=== PATIENT | female | born 1960 | race Caucasian/White ===

== ENCOUNTER 2020-10-25 16:44 | Observation (INO) | payer BC, OTHER ==
--- OUTSIDE RECORDS SUMMARY | 2020-10-25 16:46 | XMS REPORT | Continuity of Care Document ---
:1960 Author Organization [facility] t Address [address] [place] [address] Care Team Providers Name Role Phone Unavailable Unavailable Unavailable Problems This patient has no known problems. Allergies, Adverse Reactions, Alerts Allergy Allergy Status Severity Reaction(s) Onset Inactive Treating Comm ents Source Name Type Date Date Clinician codeine Adverse Active Info Not [facility] Reaction [facility] Medications Ordered Filled Start Stop Current Ordering Indication Dosage Frequency Signature Comments Components Source Medication Medication Date Date Medication? Clinician (SIG) Name Name Ozempic Ozempic Yes Jhonny inject one [facility] -1 mg [facility] l a [facility] Procedures This patient has no known procedures. Encounters Start End Encounter Admission Attending Care Care Encounter Source Date/Time Date/Time Type Type Clinicians Facility Department ID 2020-09-04 2020-09-04 Outpatient [facility] [id number] [facility] 2020-07-03 2020-07-03 Outpatient [facility] [id number] [facility] 2020-06-01 2020-06-01 Outpatient [facility] [id number] [facility] 2020-05-23 2020-05-23 Outpatient [facility] [id number] [facility]00 [facility] 2020-03-29 2020-03-29 [address] [facility] [id number] [facility] 20:18:00 20:18:00 [facility] Out[facility] Clinics 2020-03-22 2020-03-22 [facility] [id number] [facility] 14[facility]09:00 14:09:00 [place] [employer] [facility] Medicine Outpati ent Clinics 2020-03-02 2020-03-02 [facility] [id number] [address] 13:43:00 13:43:00 [place] [employer] [facility] Medicine l Medicine Outpati ent Clinics 2020-02-16 2020-02-16 [facility] [id number] 14:00:00 14:00:00 [place] [employer] [facility] [place] [facility] Medicine l Medicine Outpati ent Clinics 2020-02-04 2020-02-04 [facility] [id number] [address] 09:54:00 09:54:00 [place] [employer] [facility] [place] [facility] Medicine l Medicine Outpati ent Clinics 2020-01-21 2020-01-21 [facility] [id number] [address] 11:45:00 11:45:00 [place] [employer] [place] - [facility] Medicine l Medicine Outpati ent Clinics 2019-12-16 2019-12-16 [facility] [id number] 12[facility]00[facility]00 [facility] l Medicine Outpati ent Clinics 2019-12-10 2019-12-10 [facility] [id number] [facility] 09[facility]40[facility]00 [facility]40[facility] [address] [facility] Medicine Outpati ent Clinics 2019-12-09 2019-12-09 [facility] [id number] 08:39:00 08:39:00 [place] [employer] [facility] [place] [facility] Medicine l Medicine Outpati ent Clinics 2019-12-07 2019-12-07 [facility] [id number] 09:40:00 09:40:00 t [facility] [employer] [facility] Medicine l Medicine Outpati ent Clinics 2019-12-03 2019-12-03 [facility] [id number] 08:40:00 08:40:00 [place] [employer] [facility] Medicine l Medicine Outpati ent Clinics 2019-12-02 2019-12-02 [facility] [id number] [facility] 10:04:00 10:04:00 t [place] [employer] [facility] Medicine l Medicine Outpati ent Clinics 2019-12-02 2019-12-02 [facility] [id number] 10:02:00 10:02:00 t [facility] [employer] [facility] Medicine Outpat[facility] Clinics 2019-12-01 2019-12-01 [facility] [address] 14:00:00 14:00:00 t [facility] [employer] [facility] Medicine l Medicine Outpati ent Clinics 2019-12-01 2019-12-01 [facility] [id number] 10:15:00 10:15:00 [place] [employer] [facility] Medicine l Medicine Outpati ent Clinics 2019-11-24 2019-11-24 [facility] [id number] 11[facility]30:00 11:30:00 [place] [employer] [facility] Medicine l Medicine Outpati ent Clinics 2019-11-22 2019-11-22 [facility] [id number] 10:52:00 10:52:00 [place] [employer] [facility] Medicine l Medicine Outpati ent Clinics 2019-11-19 2019-11-19 [facility] [id number] 10:35:00 10:35:00 t [place] [employer] [facility] Medicine l Medicine Outpati ent Clinics 2019-11-19 2019-11-19 [facility] [id number] 10[facility]20:00 10:20:00 t [place] [employer] [facility] Medicine l Medicine Outpati ent Clinics 2019-11-18 2019-11-18 [facility] [id number] [facility] 15:52:00 15:52:00 [place] [employer] [place] [facility] - Drive [facility] Medicine Outpati ent Clinics 2019-11-16 2019-11-16 [facility] [id number] 16:00:00 16:00:00 [place] [employer] [place] [facility] - Drive [facility] Medicine Outpati ent Clinics 2019-08-17 2019-08-17 [facility] [id number] 16:15:00 16:15:00 [place] [employer] [facility] - Drive [facility] Medicine Outpati ent Clinics 2019-08-09 2019-08-09 [facility] [id number] [facility] 16:14:00 16:14:00 [place] [employer] [facility] - Drive [facility] Medicine Outpati ent Clinics 2019-05-12 2019-05-12 [facility] [id number] 16:45:00 16:45:00 [place] [employer] [facility] - Drive [facility] Medicine Outpati ent Clinics 2019-04-20 2019-04-20 [facility] [id number] [facility] 10:45:00 10:45:00 [place] [employer] [facility] - [facility] Medicine Outpati ent Clinics 2019-03-05 2019-03-05 [facility] [id number] 13:53:00 13:53:00 [place] [employer] [facility] - Drive [facility] Medicine Outpati ent Clinics 2019-01-05 2019-01-05 [facility] [id number] 16:14:00 16:14:00 [place] [employer] [facility] - Drive [facility] Medicine Outpati ent Clinics 2018-12-29 2018-12-29 [facility] [id number] 16:30:00 16:30:00 [place] [facility] [facility] - Drive [facility] Medicine Outpati ent Clinics Results This patient has no known results.
--- NOTE | 2020-10-25 17:48 | RAD REPORT ---
EXAM DESCRIPTION: CT - Head Brain Wo Cont - 10/25/2020 5:39 pm CLINICAL HISTORY: right sided facial droop Headache, drowsiness COMPARISON: No comparisons TECHNIQUE: All CT scans are performed using dose optimization technique as appropriate and may inclu de automated exposure control or mA/KV adjustment according to patient size. FINDINGS: No intracranial hemorrhage, hydrocephalus or extra-axial fluid collection.Small 9 mm left lacunar infarct is noted, age undetermined.No areas of brain edema or evidence of midline shift. The paranasal sinuses and mastoids are clear. The calvarium is intact. IMPRESSION: No acute intracranial abnormality. 9 mm lacunar infarct left basal ganglia favored to be subacute or chronic in timeframe.
[2020-10-25 18:24] LABS: Absolute Lymphocytes (CBC) 3.8 K/uL (0.7-4.9); Basophils % 0.8 % (0-1.3); MPV 8.6 fL (7.6-11.3); RBC Red Blood Cell Count 4.64 M/uL (3.86-4.86)
[2020-10-25 18:28] LABS: Protime INR 0.83
[2020-10-25] MEDS ORDERED: ASPIRIN 81 MG CHEWABLE TABLET ONE (18:34)
[2020-10-25 18:46] LABS: ALT/SGPT 37 U/L (12-78); AST/SGOT 13 U/L (15-37); Albumin 4.3 g/dL (3.4-5.0); Alkaline Phosphatase 75 U/L (45-117); BUN Blood Urea Nitrogen 22 mg/dL (7-18); Bicarbonate 28 mmol/L (21-32); Bilirubin Direct 0.1 mg/dL (0-0.2); Bilirubin Total 0.5 mg/dL (0.2-1.0); Glucose Level 164 mg/dL (74-106); NT PRO-BNP 33 pg/mL (<125); Potassium 4.2 mmol/L (3.5-5.1); Protein, Total 7.7 g/dL (6.4-8.2); Sodium Level 137 mmol/L (136-145); Troponin (Emerg Dept Use Only) < 0.02 ng/mL (0.0-0.045)
--- NOTE | 2020-10-25 19:05 | ER ---
Nurse's Notes [facility] Name: Franchesca Hughes Age: 60 yrs Sex: Female : 1960 Arrival Date: 10/25/2020 Time: 16:45 Bed 13 Private MD: Diagnosis: Cerebral infarction Presentation: 10/25 16:55 Chief complaint: Patient states: R sided facial droop since 12NN yesterday 10/03/2020. ca1 Reports difficulty sipping from a straw and tongue feels . Denies weakness and numbness or upper and lower extremities. Negative slurring. VAN negative. Coronavirus screen: Client denies travel out of the [place] in the last 14 days. At this time, the client does not indicate any symptoms associated with coronavirus-19. Ebola Screen: Patient negative for fever greater than or equal to 101.5 degrees Fahrenheit, and additional compatible Ebola Virus Disease symptoms Patient denies exposure to infectious person. Patient denies travel to an Ebola-affected area in the 21 days before illness onset. No symptoms or risks identified at this time. Initial Sepsis Screen: Does the patient meet any 2 criteria? No. Patient's initial sepsis screen is negative. Does the patient have a suspected source of infection? No. Patient's initial sepsis screen is negative. Risk Assessment: Do you want to hurt yourself or someone else? Patient reports no desire to harm self or others. Onset of symptoms was October 24, 2020 at 12:00. 16:55 Method Of Arrival: Ambulatory ca1 16:55 Acuity: MARIELENA 3 ca1 16:55 An acute neurological deficit is present. The patient has been moved to a treatment [facility] area. Pre-hospital glucose is not applicable to this patient. Triage Assessment: 18:00 Neuro: Reports droop on right side of face. jd3 18:27 The onset of the patients symptoms was October 24, 2020 at 12:00. [facility] Stroke Activation: Physician: Stroke Attending; Name: ; Notified At: ; Arrived At: Physician: Chief Stroke Resident; Name: ; Notified At: ; Arrived At: Physician: Stroke Resident; Name: ; Notified At: ; Arrived At: Physician: ED Attending; Name: ; Notified At: ; Arrived At: Physician: ED Resident; Name: ; Notified At: ; Arrived At: 18:25 not activated, greater than 12 hours old symptoms jd3 Historical: - Allergies: 16:59 Codeine; ca1 - PMHx: 16:59 Hypertension; High Cholesterol; Diabetes - NIDDM; ADD/ADHD; ca1 - PSHx: 16:59 Cholecystectomy; ca1 - Immunization history:: Flu vaccine is up to date. - Social history:: Smoking status: Patient denies any tobacco usage or history of. Screenin:17 Abuse screen: Denies threats or abuse. Nutritional screening: No deficits noted. jd3 Tuberculosis screening: No symptoms or risk factors identified. Fall Risk Ambulatory Aid- None/Bed Rest/Nurse Assist (0 pts). Gait- Normal/Bed Rest/Wheelchair (0 pts) Mental Status- Oriented to own ability (0 pts). Total [place] Fall Scale indicates No Risk (0-24 pts). Assessment: 17:12 VAN Scoring: Arm Drift: Patients demonstrates NO arm weakness. Patient is VAN Negative. jd3 The patient has not been NPO before screening. The patient is currently on the following diet: regular The patient is alert, and able to follow commands. The patient does not exhibit slurred or garbled speech. The patient is not exhibiting difficulty speaking. The patient does not exhibit difficulty understanding words. The patient is able to swallow own secretions with no drooling or need for suction. Patient tolerated one teaspoon of water. No drooling, immediate coughing, gurgling, or clearing of the throat was noted. The patient tolerated 90mL of water. No drooling, immediate coughing, gurgling, or clearing of the throat was noted. The patient passed the bedside swallow screening. Oral medications may be given as ordered. Contact Physician for further diet orders. Provider notified of bedside swallow screening results: Rashel MADDOX. General: Appears in no apparent distress. comfortable, Behavior is calm, cooperative, appropriate for age. Pain: Denies pain. Neuro: Level of Consciousness is awake, alert, obeys commands, Oriented to person, place, time, situation, Control Panel Tester are equal bilaterally Moves all extremities. Full function Gait is steady, Speech is normal, Facial droop on right, Pupils are Pupil Size: right side pupil larger than left side Intact. Cardiovascular: Patient's skin is warm and dry. Respiratory: Airway is patent Respiratory effort is even, unlabored, Respiratory pattern is regular, symmetrical, Denies cough, shortness of breath. GI: No signs and/or symptoms were reported involving the gastrointestinal system. : No signs and/or symptoms were reported regarding the genitourinary system. EENT: No signs and/or symptoms were reported regarding the EENT system. Derm: Skin is intact, Skin is dry, Skin is normal, Skin temperature is warm. Musculoskeletal: Circulation, motion, and sensation intact. Range of motion: intact in all extremities. 18:20 Reassessment: No changes from previously documented assessment. Patient and/or family jd3 updated on plan of care and expected duration. Pain level reassessed. Patient is alert, oriented x 3, equal unlabored respirations, skin warm/dry/pink. Patient denies pain at this time. 18:26 T-PA (Activase) Screening: Contraindications: Patient reports onset of signs and jd3 symptoms of stroke greater than 6 hours ago: Yes. 19:00 Reassessment: Patient and/or family updated on plan of care and expected duration. Pain fu level reassessed. Patient is alert, oriented x 3, equal unlabored respirations, skin warm/dry/pink. Patient denies pain at this time. 20:00 Reassessment: Patient and/or family updated on plan of care and expected duration. Pain fu level reassessed. Patient is alert, oriented x 3, equal unlabored respirations, skin warm/dry/pink. 21:00 Reassessment: Patient and/or family updated on plan of care and expected duration. Pain fu level reassessed. Patient is alert, oriented x 3, equal unlabored respirations, skin warm/dry/pink. 21:56 Reassessment: Patient and/or family updated on plan of care and expected duration. Pain fu level reassessed. Patient is alert, oriented x 3, equal unlabored respirations, skin warm/dry/pink. 23:19 Reassessment: No changes from previously documented assessment. Patient and/or family fu updated on plan of care and expected duration. Pain level reassessed. Patient is alert, oriented x 3, equal unlabored respirations, skin warm/dry/pink. Vital Signs: 16:55 BP 149 / 68; Pulse 96; Resp 16 S; Temp 97.6(TE); Pulse Ox 100% on R/A; Weight 74.84 kg ca1 (R); Height 5 ft. 5 in. (165.10 cm) (R); Pain 0/10; 18:24 BP 153 / 73; Pulse 100; Resp 16 S; Pulse Ox 100% on R/A; jd3 19:30 BP 144 / 82; Pulse 93; Resp 20; Pulse Ox 98% on R/A; Pain 0/10; fu 21:00 BP 149 / 88; Pulse 81; Resp 19; Pulse Ox 100% on R/A; Pain 0/10; fu 22:00 BP 138 / 79; Pulse 90; Resp 18; Pulse Ox 97% on R/A; Pain 0/10; fu 23:21 BP 147 / 80; Pulse 91; Resp 18; Temp 98; Pulse Ox 96% on R/A; Pain 0/10; fu 16:55 Body Mass Index 27.46 (74.84 kg, 165.10 cm) ca1 NIH Stroke Scale Scores: 17:12 NIHSS Score: 2 j ED Course: 16:45 Patient arrived in ED. as 16:59 Triage completed. ca1 16:59 Arm band placed on right wrist. ca1 17:02 Rashel Fuller PA is PHCP. [facility] 17:02 Ant Guillermo MD is Attending Physician. [facility] 17:03 Sathya Cisse, HOSSEIN is Primary Nurse. jd3 17:19 Patient has correct armband on for positive identification. Bed in low position. Call jd3 light in reach. Side rails up X 1. Adult w/ patient. telephone worker on. Pulse ox on. NIBP on. 17:40 CT Head Brain wo Cont In Process Unspecified. EDMS 18:04 Pillow given. telephone worker on. Pulse ox on. NIBP on. mh5 18:04 EKG done, by ED staff, reviewed by Ant Guillermo MD. 5 18:15 Inserted saline lock: 20 gauge in left antecubital area, using aseptic technique. Blood jd3 collected. 19:03 Cedric Marks MD is Hospitalizing Provider. [facility] 21:02 COVID-19 : Document "Date of Symptom Onset" if Symptomatic. Sent. fu 21:56 CORONAVIRUS Sent. fu 23:19 No provider procedures requiring assistance completed. Patient admitted, IV remains in fu place. Administered Medications: 18:23 Drug: Aspirin Chewable Tablet 324 mg Route: PO; jd3 19:30 Follow up: Response: No adverse reaction Point of Care Testin:25 no glucose ordered jd3 Ranges: Outcome: 19:05 Decision to Hospitalize by Provider. samson 23:35 Admitted to Med/surg accompanied by tech, room 220, Report called to HOSSEIN Hernandez fu 23:35 Condition: stable 23:35 Instructed on the need for admit. 10/26 00:00 Patient left the ED. fu NIH Stroke Scale - NIH Stroke Score Date: 10/25/2020 Time: 17:12 Total Score = 2 1a. Level of Consciousness (LOC) - 0(Alert) 1b. Level of Consciousness (LOC) (Year \\T\\ Age) - 0(Both) 1c. LOC Commands (Open \\T\\ Closes Eyes/Depot Manager) - 0(Both) 2. Best Gaze (Lateral Gaze Paresis) - 0(Normal) 3. Visual Field Loss - 0(No visual loss) 4. Facial Palsy - 2(Partial paralysis) 5a. Left Arm: Motor (10-second hold) - 0(No drift) 5b. Right Arm: Motor (10-second hold) - 0(No drift) 6a. Left Leg: Motor (5-second hold - always test supine) - 0(No drift) 6b. Right Leg: Motor (5-second hold - always test supine) - 0(No drift) 7. Limb Ataxia (finger/nose \\T\\ heel/navarrete - test with eyes open) - 0(Absent) 8. Sensory Loss (pinprick arms/legs/face) - 0(Normal) 9. Best Language: Aphasia (description/naming/reading) - 0(No aphasia) 10. Dysarthria (speech clarity - read or repeat words) - 0(Normal) 11. Extinction and Inattention (visual/tactile/auditory/spatial/personal) - 0(No abnormality) Initials: jd3 Signatures: Dispatcher [employer] EDMS Rashel Fuller PA PA jmm Martinez, Amelia as Martinez, Maria [facility] Sathya Cisse RN RN jKuanl Gil RN RN fu Avani Medellin RN RN ca1 Corrections: (The following items were deleted from the chart) 10/25 17:51 16:55 Chief complaint: Patient states: R sided facial droop since 12NN ca1 yesterday 10/03/2020. Reports difficulty sipping from a straw and tongue feels . Denies weakness and numbness or upper and lower extremities. Negative slurring ca1
--- NOTE | 2020-10-25 19:06 | EDPHYS ---
Physician Documentation [facility] Name: Franchesca Hughes Age: 60 yrs Sex: Female : 1960 Arrival Date: 10/25/2020 Time: 16:45 Bed 13 Private MD: ED Physician Ant Guillermo HPI: 10/25 17:24 This 60 yrs old Female presents to ER via Ambulatory with complaints of jmm Facial Droop. 17:24 The patient presents to the emergency department with facial droop. Onset: The jmm symptoms/episode began/occurred 1 day(s) ago. Associated signs and symptoms: Pertinent negatives: altered mental status, headache, syncope. This is a 60 year old female with ahistory of htn, hlp, DM that presents o the ED with complaints of right sided facial weakness beginning yesterday. Patient stats this was noticed by the school nurse. Denies unliateral limb weakness, denies difficulty walking. . Historical: - Allergies: 16:59 Codeine; ca1 - PMHx: 16:59 Hypertension; High Cholesterol; Diabetes - NIDDM; ADD/ADHD; ca1 - PSHx: 16:59 Cholecystectomy; ca1 - Immunization history:: Flu vaccine is up to date. - Social history:: Smoking status: Patient denies any tobacco usage or history of. ROS: 17:24 Constitutional: Negative for fever, chills, and weight loss, Cardiovascular: Negative jmm for chest pain, palpitations, and edema, Respiratory: Negative for shortness of breath, cough, wheezing, and pleuritic chest pain. 17:24 Neuro: Positive for facial droop. 17:24 All other systems are negative. Exam: 17:24 Constitutional: This is a well developed, well nourished patient who is awake, alert, jmm and in no acute distress. 17:24 Neck: Trachea midline, Supple Chest/axilla: Normal chest wall appearance and motion. Cardiovascular: Regular rate and rhythm. No edema appreciated Respiratory: Normal respirations, no respiratory distress appreciated Abdomen/GI: Non distended, soft Back: Normal ROM Skin: General appearance color normal MS/ Extremity: Moves all extremities, no obvious deformities appreciated, no edema noted to the lower extremities 17:24 Head/face: Noted is right sided facial droop. 17:24 Neuro: Cranial nerves: facial droop noted on right, with forehead involved. 17:24 Psych: Behavior/mood is pleasant, cooperative. Vital Signs: 16:55 BP 149 / 68; Pulse 96; Resp 16 S; Temp 97.6(TE); Pulse Ox 100% on R/A; Weight 74.84 kg ca1 (R); Height 5 ft. 5 in. (165.10 cm) (R); Pain 0/10; 18:24 BP 153 / 73; Pulse 100; Resp 16 S; Pulse Ox 100% on R/A; jd3 19:30 BP 144 / 82; Pulse 93; Resp 20; Pulse Ox 98% on R/A; Pain 0/10; fu 21:00 BP 149 / 88; Pulse 81; Resp 19; Pulse Ox 100% on R/A; Pain 0/10; fu 22:00 BP 138 / 79; Pulse 90; Resp 18; Pulse Ox 97% on R/A; Pain 0/10; fu 23:21 BP 147 / 80; Pulse 91; Resp 18; Temp 98; Pulse Ox 96% on R/A; Pain 0/10; fu 16:55 Body Mass Index 27.46 (74.84 kg, 165.10 cm) ca1 NIH Stroke Scale Scores: 17:12 NIHSS Score: 2 jd3 MDM: 17:16 Patient medically screened. [facility] 17:53 Data reviewed: vital signs, nurses notes. Counseling: I had a detailed discussion with [facility] the patient and/or guardian regarding: the historical points, exam findings, and any diagnostic results supporting the discharge/admit diagnosis. 19:00 Data reviewed: lab test result(s), radiologic studies, CT scan. Counseling: I had a [facility] detailed discussion with the patient and/or guardian regarding: lab results, radiology results, the need for further work-up and treatment in the hospital. ED course: I discussed the patient with Javon Larsen whom accepted the patient to Dr. Suly méndez. 10/25 17:51 Order name: Basic Metabolic Panel; Complete Time: 18:51 [facility] 10/25 17:51 Order name: CBC with Diff; Complete Time: 18:51 [facility] 10/25 17:51 Order name: LFT's; Complete Time: 18:51 [facility] 10/25 17:51 Order name: Magnesium; Complete Time: 18:51 [facility] 10/25 17:51 Order name: NT PRO-BNP; Complete Time: 18:51 [facility] 10/25 17:51 Order name: PT-INR; Complete Time: 18:51 [facility] 10/25 17:17 Order name: CT Head Brain wo Cont; Complete Time: 17:49 [facility] 10/25 17:51 Order name: Troponin (emerg Dept Use Only); Complete Time: 18:51 [facility] 10/25 17:51 Order name: EKG; Complete Time: 17:52 [facility] 10/25 19:56 Order name: CONS Physician Consult [facility] 10/25 20:48 Order name: COVID-19 : Document "Date of Symptom Onset" if Symptomatic. [facility] 10/25 21:34 Order name: CORONAVIRUS [facility] 10/25 22:24 Order name: SARS-COV-2 RT PCR; Complete Time: 22:34 [facility] 10/25 17:51 Order name: Cardiac monitoring; Complete Time: 18:04 [facility] 10/25 17:51 Order name: EKG - Nurse/Tech; Complete Time: 18:04 [facility] 10/25 17:51 Order name: IV Saline Lock; Complete Time: 18:15 [facility] 10/25 17:51 Order name: Labs collected and sent; Complete Time: 18:15 [facility] 10/25 17:51 Order name: O2 Per Protocol; Complete Time: 18:15 [facility] 10/25 17:51 Order name: O2 Sat Monitoring; Complete Time: 18:15 [facility] Administered Medications: 18:23 Drug: Aspirin Chewable Tablet 324 mg Route: PO; jd3 19:30 Follow up: Response: No adverse reaction fu Point of Care Testin:25 no glucose ordered jd3 Ranges: Critical Glucose Levels:Adult <50 mg/dl or >400 mg/dl <40 mg/dl or >180 mg/dl Disposition: 10/25/20 19:05 Hospitalization ordered by Cedric Marks for Observation. Preliminary diagnosis is Cerebral infarction. - Bed requested for Telemetry/MedSurg (observation). - Status is Observation. fu - Condition is Stable. - Problem is new. - Symptoms are unchanged. NIH Stroke Scale - NIH Stroke Score Date: 10/25/2020 Time: 17:12 Total Score = 2 1a. Level of Consciousness (LOC) - 0(Alert) 1b. Level of Consciousness (LOC) (Year \\T\\ Age) - 0(Both) 1c. LOC Commands (Open \\T\\ Closes Eyes/National Secretary) - 0(Both) 2. Best Gaze (Lateral Gaze Paresis) - 0(Normal) 3. Visual Field Loss - 0(No visual loss) 4. Facial Palsy - 2(Partial paralysis) 5a. Left Arm: Motor (10-second hold) - 0(No drift) 5b. Right Arm: Motor (10-second hold) - 0(No drift) 6a. Left Leg: Motor (5-second hold - always test supine) - 0(No drift) 6b. Right Leg: Motor (5-second hold - always test supine) - 0(No drift) 7. Limb Ataxia (finger/nose \\T\\ heel/navarrete - test with eyes open) - 0(Absent) 8. Sensory Loss (pinprick arms/legs/face) - 0(Normal) 9. Best Language: Aphasia (description/naming/reading) - 0(No aphasia) 10. Dysarthria (speech clarity - read or repeat words) - 0(Normal) 11. Extinction and Inattention (visual/tactile/auditory/spatial/personal) - 0(No abnormality) Initials: jerel Addendum: 10/30/2020 16:06 Co-signature as Attending Physician, Ant Guillermo MD. rn Signatures: Dispatcher [employer] EDRashel Rodas PA PA jmm Nieto, Roman, MD MD rn Lasagna, Tonya, RN RN tl1 Sathya Cisse RN RN jd3 Kunal Cordoba RN RN fu Avani Medellin RN RN ca1 Corrections: (The following items were deleted from the chart) 10/25 22:40 19:05 Hospitalization Ordered by Cedric Marks MD for Observation. Preliminary tl1 diagnosis is Cerebral infarction. Bed requested for Telemetry/MedSurg (observation). Status is Observation. Condition is Stable. Problem is new. Symptoms are unchanged. samson 10/26 00:00 10/25 22:40 10/25/2020 19:05 Hospitalization Ordered by Cedric Marks MD for fu Observation. Preliminary diagnosis is Cerebral infarction. Bed requested for Telemetry/MedSurg (observation). Status is Observation. Condition is Stable. Problem is new. Symptoms are unchanged. tl1
[2020-10-26] MEDS ORDERED: ACETAMINOPHEN 500 MG TAB PO PRN (00:14)
[2020-10-26] MEDS: INSULIN -REGULAR HUMAN 50 UNIT/0.5 ML ML SQ SCH ×7 (00:14→17:22)
[2020-10-26] MEDS ORDERED: ZOLPIDEM TARTRATE 5 MG TABLET PO PRN (00:14)
[2020-10-26] MEDS ORDERED: ONDANSETRON 4 MG/2 ML VIAL IV PRN (00:14)
[2020-10-26] MEDS ORDERED: D50W 25 GM/50 ML SYRINGE IV PRN (00:19)
[2020-10-26] MEDS ORDERED: GLUCAGON 1 MG/VIAL IM PRN (00:19)
--- NOTE | 2020-10-26 00:25 | P.HP ---
Certification for Inpatient Patient admitted to: Observation With expected LOS: <2 Midnights Patient will require the following post-hospital care: None Practitioner: I am a practitioner with admitting privileges, knowledge of patient current condition, hospital course, and medical plan of care. Services: Services provided to patient in accordance with Admission requirements found in Title 42 Section 412.3 of the Code of Federal Regulations <Boogie Larsen - Last Filed: 10/26/20 00:19> Patient History Date of Service: 10/26/20 Primary Care Provider: Kezia Shaffer Reason for admission: CVA, Sesser Palsy History of Present Illness: This is a 60-year-old female with a history of wmi-zbadakx-jxtwlqvev diabetes mellitus, hypertension, high cholesterol, ADD that presented to the emergency room after she noticed that she had facial droop that was not going away. Patient stated that symptom onset was noon the previous day. Stated that she had had loss of taste and partial numbness of the right side of her tongue along with facial droop and was unable to sit out of straw. Denies ever having symptoms like this in the past. Patient was worked up in the emergency room and found to have a sodium of 137, potassium 4.2, chloride 103, bicarb 28, BUN 22, creatinine 0.27, glucose 164. Patient had a white cell count of 8.4, hemoglobin 12.9, hematocrit 39, platelets 381. BNP was WNL and troponin was less than 0.02. Patient had a CT of the head without contrast showing a 9 mm subacute left basal ganglial infarct. Medicine consult that time for further evaluation. The patient's presentation in the emergency room presents as if she were to have a Osorio's palsy. Patient had both forehead and ocular involvement along with anterior 2/3 of her tongue with taste decrease. Patient outside the window for any sort of tissue plasminogen activator intervention. Dr. munoz has been consulted on this case as well. Home medications list reviewed: Yes - Past Medical/Surgical History Has patient received pneumonia vaccine in the past: Yes Diabetic: Yes -: sinus infection -: neuropathy -: cholecystectomy - Family History Father -: Lung disease, Diabetes Mother -: Hypertension, Other (see notes) Notes: varicose veins - Social History Smoking Status: Never smoker Smoking therapy provided: No Alcohol use: Yes CD- Drugs: No Caffeine use: Yes Place of Residence: Home <Boogie Larsen - Last Filed: 10/26/20 00:19> Date of Service: 10/26/20 <Cedric Marks - Last Filed: 11/14/20 02:31> Allergies codeine Allergy (Verified 01/25/16 19:49) Itching/Hives/Rash Home Medications: Acyclovir [Zovirax] 800 mg PO TID #21 tablet 10/26/20 Aspirin [Aspirin EC 81 MG] 81 mg PO DAILY #30 tablet. 10/26/20 Atomoxetine HCl 100 mg PO DAILY 10/26/20 Atorvastatin Calcium [Lipitor*] 20 mg PO BEDTIME #30 tab 10/26/20 Cholecalciferol (Vitamin D3) [Vitamin D3] 2,000 unit PO DAILY 10/26/20 Clopidogrel Bisulfate [Plavix] 75 mg PO DAILY #30 tablet 10/26/20 Irbesartan 150 mg PO DAILY 10/26/20 Magnesium Oxide [Magnesium] 400 mg PO DAILY 10/26/20 Metformin HCl 1,000 mg PO BID 10/26/20 Metoprolol Succinate 100 mg PO DAILY 10/26/20 Niacinamide [Niacin] 500 mg PO DAILY 10/26/20 Pregabalin 75 mg PO BID 10/26/20 No122/Iron/Folic Acid [ Multi Tablet] 1 tab PO DAILY 10/26/20 Simvastatin 40 mg PO BEDTIME 10/26/20 predniSONE [Prednisone*] 60 mg PO DAILY #20 tab 10/26/20 Review of Systems General: Unremarkable Eyes: Unremarkable ENT: Unremarkable Respiratory: Unremarkable Cardiovascular: Unremarkable Gastrointestinal: Unremarkable Genitourinary: Unremarkable Musculoskeletal: Unremarkable Integumentary: Unremarkable Neurological: As per HPI Lymphatics: Unremarkable <Boogie Larsen - Last Filed: 10/26/20 00:19> Physical Examination - Vital Signs Temperature: 97.6 F Blood Pressure: 149/68 Pulse: 96 Respirations: 60 Pulse Ox (%): 100 (Room air) - Physical Exam General: Alert, In no apparent distress, Oriented x3, Cooperative HEENT: PERRLA, Mucous membr. moist/pink, EOMI Neck: Supple, 2+ carotid pulse no bruit, JVD not distended, No Thyromegaly Respiratory: Clear to auscultation bilaterally, Normal air movement Cardiovascular: No edema, Normal pulses, Regular rate/rhythm, Normal S1 S2, No gallops, No rubs, No murmurs Capillary refill: <2 Seconds Gastrointestinal: Normal bowel sounds, Soft and benign, Non-distended, No ascites, No tenderness, No masses, No rebound, No guarding Musculoskeletal: No clubbing, No swelling, No contractures, No erythema, No tenderness, No warmth Integumentary: No rashes, No breakdown, No significant lesion, No tenderness/swelling, No erythema, No warmth, No cyanosis Neurological: Normal speech, Normal strength at 5/5 x4 extr, Normal tone, Sensation intact, Normal affect, Abnormal cranial nerve function (CN 7 palsy) Lymphatics: No axilla or inguinal lymphadenopathy - Studies Laboratory Data (last 24 hrs) 10/25/20 18:12: PT 9.5, INR 0.83 10/25/20 18:12: WBC 8.40, Hgb 12.9, Hct 39.0, Plt Count 381 10/25/20 18:12: Sodium 137, Potassium 4.2, BUN 22 H, Creatinine 0.77, Glucose 164 H, Magnesium 2.0, Total Bilirubin 0.5, AST 13 L, ALT 37, Alkaline Phosphatase 75 <Boogie Larsen - Last Filed: 10/26/20 00:19> Assessment and Plan - Problems (Diagnosis) (1) CVA (cerebral vascular accident) Status: Acute Plan: Patient on CT had brain without contrast shows a left basal ganglial 9 mm subacute infarction. Patient has been put on continuous neurologic assessment for the next [address] richie lang has been consulted as well. We will continue to treat patient as if she had an acute CVA with folic acid, antihypertensives, statin therapy, platelet therapy, aspirin therapy. Based on patient's presentation we are not convinced that this stroke that was found on the head CT is new. We will wait for MRI in the morning I will also get carotid Dopplers and echo as well. Patient had no EKG abnormalities. Regardless we will continue to treat as stroke and add steroids for Osorio's palsy as this is still in the main differential. Qualifiers: CVA mechanism: unspecified Qualified Code(s): I63.9 - Cerebral infarction, unspecified (2) Osorio's palsy Status: Acute Plan: The patient has been started on steroids. Patient has forehead an ocular involvement along with right-sided facial droop consistent with a Osorio's palsy. Patient also had decreased sensation in taste differentiation in the anterior 2/3 ever tongue. We will continue to monitor for worsening of symptoms and continue to rule out acute CVA as well. (3) Hypertension Status: Chronic Plan: We will maintain blood pressure to be progressively hypertensive at this time. If need be we will treat with anti hypertensive medications if patient's blood pressure increases of over 200 systolic over 110 diastolic Qualifiers: Hypertension type: essential hypertension Qualified Code(s): I10 - Essential (primary) hypertension (4) Non-insulin dependent diabetes mellitus Status: Chronic Plan: We will continue to monitor patient's blood sugars. We will treat with insulin if glucose increases above 180 milligrams/deciliter. Patient has been put on an ADA diet. (5) Hypercholesterolemia Status: Chronic Plan: We will check patient's lipid panel in the a.m.. Patient is on simvastatin 40 mg which will continue. Discharge Plan: Home Plan to discharge in: 24 Hours - Advance Directives Does patient have a Living Will: No Does patient have a Durable POA for Healthcare: No - Code Status/Comfort Care Code Status Assessed: Yes Code Status: Full Code Critical Care: No Time Spent Managing Pts Care (In Minutes): 70 <Boogie Larsen - Last Filed: 10/26/20 00:19> - Plan Patient has done what her in hospitalization. Further workup is pending. Continue with antiplatelet therapy and statin therapy. <Cedric Marks - Last Filed: 11/14/20 02:31>
[2020-10-26 01:27] VITALS: BMI 26.9
[2020-10-26] MEDS: NA CHLORIDE 0.9% 1,000 ML IV SCH ×2 (02:10→12:38)
[2020-10-26 04:52] LABS: Absolute Lymphocytes (CBC) 4.3 K/uL (0.7-4.9); Basophils % 0.5 % (0-1.3); Hematocrit 36.6 % (36.0-45.0); Lymphocytes % 52.5 % (15.3-44.8); MPV 8.7 fL (7.6-11.3); RBC Red Blood Cell Count 4.38 M/uL (3.86-4.86)
[2020-10-26 04:53] LABS: Potassium 4.1 mmol/L (3.5-5.1)
--- NOTE | 2020-10-26 05:37 | EKG ---
Test Date: 2020-10-25 Test Time: 18:27:55 Motor Vehicle Technician: DEMETRIUS MEASUREMENT RESULTS: Intervals: Rate: 91 DE: 172 QRSD: 74 QT: 384 QTc: 472 Roma: P: 34 DE: 172 QRS: -1 T: 55 INTERPRETIVE STATEMENTS: Normal sinus rhythm Possible Left atrial enlargement Borderline ECG Compared to ECG 01/26/2016 07:06:04 No significant changes Electronically Signed On 10-26-20 05:35:20 TARE MAN by Cristian Massey
[2020-10-26] MEDS ORDERED: CLOPIDOGREL 75 MG TABLET PO SCH (09:00)
[2020-10-26] MEDS ORDERED: predniSONE 20 MG TAB PO SCH (09:00)
[2020-10-26] MEDS ORDERED: FOLIC ACID 1 MG in NA CHLORIDE 0.9% 50 ML IV SCH (09:00)
[2020-10-26] MEDS ORDERED: ASPIRIN EC 81 MG TAB PO SCH (09:00)
[2020-10-26] MEDS ORDERED: LORazepam 2 MG/ML VIAL IV ONE (11:41)
[2020-10-26 12:03] VITALS: TEMP 97.1
--- NOTE | 2020-10-26 13:35 | ECHO ---
HEIGHT: 5 ft 5 in WEIGHT: 161 lb 12.8 oz DATE OF STUDY: 10/26/[address]: Boogie Larsen 2-DIMENSIONAL: YES M.MODE: YES DOPPLER: YES COLOR FLOW: YES TDS: NO PORTABLE: NO DEFINITY: NO BUBBLE STUDY: NO DIAGNOSIS: STROKE CARDIAC HISTORY: CATHERIZATION: NO SURGERY: NO PROSTHETIC VALVE: NO PACEMAKER: NO MEASUREMENTS (cm) DIASTOLIC (NORMALS) SYSTOLIC (NORMALS) IVSd 1.3 (0.6-1.2) LA Diam 2.7 (1.9-4.0) LVEF 63% LVIDd 3.7 (3.5-5.7) LVIDs 2.5 (2.0-3.5) %FS 34% LVPWd 1.3 (0.6-1.2) Ao Diam 2.4 (2.0-3.7) 2 DIMENSIONAL ASSESSMENT: RIGHT ATRIUM: NORMAL LEFT ATRIUM: NORMAL RIGHT VENTRICLE: NORMAL LEFT VENTRICLE: NORMAL TRICUSPID VALVE: NORMAL MITRAL VALVE: NORMAL PULMONIC VALVE: NORMAL AORTIC VALVE: NORMAL PERICARDIAL EFFUSION: NONE AORTIC ROOT: NORMAL LEFT VENTRICULAR WALL MOTION: NORMAL DOPPLER/COLOR FLOW: NORMAL COMMENTS: NORMAL LEFT VENTRICULAR EJECTION FRACTION 55-60%. NORMAL WALL MOTION. NORMAL STUDY. TECHNOLOGIST: Tee FOSTER
[2020-10-26 14:19] VITALS: O2SAT 98
--- NOTE | 2020-10-26 15:37 | P.DS ---
Discharge Date: 10/26/20 Primary Care Provider: Kezia Shaffer Disposition: ROUTINE DISCHARGE Discharge Condition: GOOD Reason for Admission: CVA, Wheeler Palsy Consultations: Neurologist Brief History of Present Illness: This is a 60-year-old female with a history of nlv-rbpqikd-mzyztkvyq diabetes mellitus, hypertension, high cholesterol, ADD that presented to the emergency room after she noticed that she had facial droop that was not going away. Patient stated that symptom onset was noon the previous day. Stated that she had had loss of taste and partial numbness of the right side of her tongue along with facial droop and was unable to sit out of straw. Denies ever having symptoms like this in the past. Patient was worked up in the emergency room and found to have a sodium of 137, potassium 4.2, chloride 103, bicarb 28, BUN 22, creatinine 0.27, glucose 164. Patient had a white cell count of 8.4, hemoglobin 12.9, hematocrit 39, platelets 381. BNP was WNL and troponin was less than 0.02. Patient had a CT of the head without contrast showing a 9 mm subacute left basal ganglial infarct. Medicine consult that time for further evaluation. The patient's presentation in the emergency room presents as if she were to have a Osorio's palsy. Patient had both forehead and ocular involvement along with anterior 2/3 of her tongue with taste decrease. Patient outside the window for any sort of tissue plasminogen activator intervention. Dr. munoz has been consulted on this case as well. Hospital Course: CT showed a possible infarct. MRI was negative. Echocardiogram was unremarkable. Patient clinically is doing better. At this time, patient is stable for discharge. Continue with outpatient follow up. Vital Signs/Physical Exam: Temp Pulse Resp BP Pulse Ox 97.1 F 88 16 149/63 H 99 10/26/20 12:00 10/26/20 12:00 10/26/20 12:00 10/26/20 12:00 10/26/20 12:00 General: Alert, In no apparent distress, Oriented x3 Laboratory Data at Discharge: WBC 8.20 K/uL (4.3-10.9) 10/26/20 04:02 Hgb 12.3 g/dL (12.0-15.0) 10/26/20 04:02 Hct 36.6 % (36.0-45.0) 10/26/20 04:02 Plt Count 359 K/uL (152-406) 10/26/20 04:02 PT 9.5 SECONDS (9.5-12.5) 10/25/20 18:12 INR 0.83 10/25/20 18:12 Sodium 138 mmol/L (136-145) 10/26/20 04:02 Potassium 4.1 mmol/L (3.5-5.1) 10/26/20 04:02 BUN 20 mg/dL (7-18) H 10/26/20 04:02 Creatinine 0.67 mg/dL (0.55-1.3) 10/26/20 04:02 Glucose 119 mg/dL (74-106) H 10/26/20 04:02 Magnesium 2.0 mg/dL (1.8-2.4) 10/25/20 18:12 Total Bilirubin 0.5 mg/dL (0.2-1.0) 10/25/20 18:12 AST 13 U/L (15-37) L 10/25/20 18:12 ALT 37 U/L (12-78) 10/25/20 18:12 Alkaline Phosphatase 75 U/L (45-117) 10/25/20 18:12 Triglycerides 312 mg/dL (<150) H 10/26/20 04:02 Cholesterol 138 mg/dL (<200) 10/26/20 04:02 HDL Cholesterol 59 mg/dL (40-60) 10/26/20 04:02 Cholesterol/HDL Ratio 2.34 10/26/20 04:02 Home Medications: Acyclovir [Zovirax] 800 mg PO TID #21 tablet 10/26/20 Aspirin [Aspirin EC 81 MG] 81 mg PO DAILY #30 tablet. 10/26/20 Atomoxetine HCl 100 mg PO DAILY 10/26/20 Atorvastatin Calcium [Lipitor*] 20 mg PO BEDTIME #30 tab 10/26/20 Cholecalciferol (Vitamin D3) [Vitamin D3] 2,000 unit PO DAILY 10/26/20 Clopidogrel Bisulfate [Plavix] 75 mg PO DAILY #30 tablet 10/26/20 Irbesartan 150 mg PO DAILY 10/26/20 Magnesium Oxide [Magnesium] 400 mg PO DAILY 10/26/20 Metformin HCl 1,000 mg PO BID 10/26/20 Metoprolol Succinate 100 mg PO DAILY 02/25/21 Niacinamide [Niacin] 500 mg PO DAILY 10/26/20 Pregabalin 75 mg PO BID 10/26/20 No122/Iron/Folic Acid [ Multi Tablet] 1 tab PO DAILY 10/26/20 Simvastatin 40 mg PO BEDTIME 10/26/20 predniSONE [Prednisone*] 60 mg PO DAILY #20 tab 10/26/20 New Medications: Aspirin [Aspirin EC 81 MG] 81 mg PO DAILY #30 tablet. Atorvastatin Calcium [Lipitor*] 20 mg PO BEDTIME #30 tab Clopidogrel Bisulfate [Plavix] 75 mg PO DAILY #30 tablet predniSONE [Prednisone*] 60 mg PO DAILY #20 tab Acyclovir [Zovirax] 800 mg PO TID #21 tablet Physician Discharge Instructions: OK TO DC IV AND DC HOME FOLLOW-UP WITH PRIMARY CARE PROVIDER IN 1-2 WEEKS FOLLOW-UP WITH Neurology IN 1-2 WEEKS RETURN TO THE ER IF symptoms worsen CALL or TEXT DR. DUQUE AT [phone] IF ANY QUESTIONS REGARDING HOSPITAL STAY. PLEASE CALL THE FLOOR AT [phone] IF ANY MEDICATION OR NURSING QUESTIONS. Diet: AHA Activity: Fall precautions Followup: Jhonny Shaffer DO [Primary Care Provider] - Time spent managing pt's care (in minutes): 35
--- NOTE | 2020-10-26 17:05 | RAD REPORT ---
EXAM DESCRIPTION: MRI - Brain W/Wo Cont - 10/26/2020 4:09 pm CLINICAL HISTORY: cva COMPARISON: October 26, [address] TECHNIQUE: Axial, sagittal, and coronal magnetic images of the brain were obtained. 16 cc MultiHance administered intravenously FINDINGS: 8 millimeter area of high signal on T2 weighted sequences within the left basal ganglia ma y represent a prominent Virchow-Yousif spaces or old lacunar infarction. The ventricles are normal in caliber. Diffusion-weighted/ ADC mapping sequences do not demonstrate evidence of an acute infarction. No abnormal enhancement within the brain is seen. An extra-axial fluid collection is not noted. Fluid within the sinuses/mastoids is not seen IMPRESSION: No acute abnormality displayed
--- NOTE | 2020-10-26 17:23 | RAD REPORT ---
EXAM DESCRIPTION: MRI - MRA Head Wo Cont - 10/26/2020 4:09 pm CLINICAL HISTORY: CVA COMPARISON: None. TECHNIQUE: Magnetic resonance angiogram was performed. 3D MIPS reconstruction performed FINDINGS: The anterior cerebral, middle cerebral, posterior cerebral, distal internal carotid and ba silar arteries do not demonstrate a significant stenosis. An aneurysm is not displayed. IMPRESSION: Unremarkable MRA brain.
[2020-10-26 17:29] VITALS: BP 140/60
--- NOTE | 2020-10-26 17:29 | RAD REPORT ---
EXAM DESCRIPTION: USCarotid Artery Bilateral10/26/2020 3:22 pm CLINICAL HISTORY: cva COMPARISON: None FINDINGS: The velocity of the right internal carotid artery equals 70 cm/sec. The right ICA/CCA rati o .9 The velocity of the left internal carotid artery equals 97 cm/sec. The left ICA/CCA ratio 1.4 Mild plaque is present within the carotid arteries. The vertebral arteries demonstrate antegrade flow IMPRESSION: Mild plaque within the carotid arteries without evidence of a hemodynamically significan t stenosis NASCET criteria used. Mild 0-49% stenosis Moderate 50-69% stenosis Severe 70-99% stenosis
[2020-10-26] MEDS ORDERED: ATORVASTATIN 20 MG TAB PO SCH (21:00)
--- NOTE | 2020-10-26 21:00 | RAD REPORT ---
EXAM DESCRIPTION: MRI - MRA Neck W/Wo Cont - 10/26/2020 4:10 pm CLINICAL HISTORY: CVA COMPARISON: None. TECHNIQUE: Magnetic resonance angiogram of the neck was performed. 19 cc MultiHance was administered intravenously. 3D MIPS reconstruction performed FINDINGS: There appears to be moderate stenosis involving the proximal right and left common carotid arteries There also appears to be a moderate stenosis within mid right internal carotid artery. The artery is very tortuous at this level. The right vertebral artery is little bit more dominant than the left without visualization of a signi ficant abnormality. IMPRESSION: Apparent moderate stenoses of the proximal right and left common carotid arteries. Apparent moderate stenosis of the mid right internal carotid artery. The artery is very tortuous at t his level. Given that the carotid ultrasound on the same date does not clearly show these findings all of this c ould be secondary to artifact. It is recommended that patient have a CT angiogram of the neck for fur ther evaluation NASCET criteria used. Mild 0-49% stenosis Moderate 50-69% stenosis Severe 70-99% stenosis
--- NOTE | 2020-10-26 22:03 | CON ---
Reason For Consultation: Consultation called because of possible stroke, which is less likely and ri ght Osorio's palsy more likely. History Of Present Illness: Ms. Hughes is a 60-year-old right-handed patient with diabetes mellitus, hypertension, dyslipidemia, who comes to [facility] after a day's worth of right f acial weakness, some abnormalities in hearing in the right ear, and abnormal taste in the mouth with partial numbness in the right side of her tongue. The symptoms developed over minutes to hours and h as been stable. She denies any right hand numbness or weakness or changes to the right trunk or legs , and no other deficits in the rest of her body. At [facility], her head CT scan which was done more than 24 hours after the onset of symptoms suggested a lacunar infarct 9 mm in the left basa l ganglia, more subacute to chronic. However, MRI of the brain done the following day, which is toda y revealed no acute ischemic or hemorrhagic change, and the area was measured at 8 mm in the left bas al ganglia, which is noted that may represent a prominent Virchow space or possibly an old lacunar in farct. It should be noted that the patient denies knowing of any problems in the right side of her b yomaira over any period of time such as stroke related deficit. There is no abnormality identified in th e brain MRA actually and the neck MRA, so both are unremarkable. Carotid artery ultrasound showed mi ld plaque in the carotid arteries, but no hemodynamically significant stenosis. An echocardiogram sh owed ejection fraction of 63% with no abnormalities identified. Past Medical History: As indicated. Diabetic neuropathy and history of sinus infection. Allergies: CODEINE. Medications: Metformin 750 mg twice daily, valsartan 80 mg daily, aspirin 81 mg daily, Lipitor 10 mg at bedtime Past Surgical History: Cholecystectomy. Family History: Positive for lung disease and diabetes in father and mother with hypertension and va ricose veins. Social History: Patient drinks alcohol occasionally. No tobacco or smoking. No illegal drug use. Review of Systems: Aside from mentioned above, she denies any fevers, chills, nausea, vomiting, myalgias, arthralgias, h eadache, weight change, rash, psychiatric complaints, gastrointestinal or genitourinary issues. Physical Examination: Vital Signs: Blood pressure 140/60, pulse up to 100, respiratory rate 14, temperature 97.1, oxygen s aturation 100% on room air. Weight 161 pounds, height 5 feet 5 inches, BMI 26.9. General: Ms. Hughes is resting in bed. Her is at bedside. She is in no acute distress. HEENT: She is normocephalic, atraumatic. Sclerae anicteric. Oropharynx is pink and moist. Neck: Supple. Chest: Clear. Heart: Regular. Extremities: No edema, cyanosis, or clubbing. Neurologic: Alert and oriented to situation, place, and person. No expressive or receptive aphasias . She has some difficulty with labial sounds with lingual and guttural sounds well. She has a decre ase in the right nasolabial fold, decrease in wrinkling of the right forehead, decrease in strength o f the right eye closure, and slight asymmetry in sound perception in the right compared to the left e ar, and does report the taste difference than prior to the event onset. Otherwise, tongue is midline and no other deficits noted on cranial nerves. Motor examination, no focal deficits in the arms and legs with 5/5 strength proximally and distally. Sensory exam, mild stocking-glove loss to light catia ch and temperature, legs and arms. Reflexes 1+ in the upper and lower extremities. Coordination int act in the upper and lower extremities. Gait with stance, right arm swing. Laboratory Studies: Complete blood count with differential is essentially unremarkable. Coagulation panel is normal. Chemistries show blood glucose ranged 119 to 260, otherwise BUN slightly elevated at 20. Liver function studies unremarkable. Triglycerides elevated to 312, total cholesterol 138, L DL cholesterol 17, HDL cholesterol 59. COVID-19 is negative. Assessment: Ms. Hughes is a 60-year-old patient with right Osorio's palsy. No evidence of acute stroke . MRI suggests a possible chronic stroke or Virchow space. Clinically, she has no deficits related to that finding. She does have hypertension, diabetes, dyslipidemia, and is at risk for stroke. She is taking an aspirin, but may forget a dose every so often. Plan: 1.Aspirin 81 mg daily. 2.Continue with antiviral medication for 1 week. 3.Steroids for 1 week as directed. 4.After discharge, she may follow up in Dr. Granado's clinic in 1 month for evaluation to determine if she requires additional perhaps therapy to help regain right facial movement. She was instructed to cover the right eye at night when asleep with a piece of Saran wrap or may use eyedrops if the ri ght eye becomes dry, and she may be discharged home. KO/CHARI Voice ID: [id number] Report ID: [id number]
== END 2020-10-26 18:37 | disposition home or self-care (01) ==
LOC: ER 16:44 → ERHOLD 20:03 → 2ND 23:46
PROVIDERS: ADMIT Hospitalist; ATTEND Hospitalist
DX: G51.0 Bell's palsy (principal); E11.40 Type 2 diabetes mellitus with diabetic neuropathy, unspecified; Z20.822 Contact with and (suspected) exposure to COVID-19; I10 Essential (primary) hypertension; E78.00 Pure hypercholesterolemia, unspecified; F98.8 Other specified behavioral and emotional disorders with onset usually occurring in childhood and adolescence; Z79.84 Long term (current) use of oral hypoglycemic drugs
CPT/HCPCS: 93005; 93306; 85025 ×2; 80048 ×2; 36415; 83735; 85610; 80061; 82947 ×4; 80076; 84484; 83880; 70450; 93880; 70553; 70544; 70549; 97112; 97161; 99285; U0003; A9577; J7030; G0378 ×2; J7512

== ENCOUNTER 2022-10-23 06:57 | Day surgery (SDC) | payer BC ==
[2022-10-23] MEDS: NA CHLORIDE 0.9% 1,000 ML ONE ×2 (08:00→08:44)
[2022-10-23] MEDS ORDERED: LIDOCAINE 1% MPF 5 ML VIAL ONE (08:25)
[2022-10-23] MEDS ORDERED: propofoL 200 MG/20 ML VIAL IV ONE (08:25)
[2022-10-23 08:31] VITALS: O2SAT 99
[2022-10-23 10:06] VITALS: TEMP 97
[2022-10-23 10:07] VITALS: BP 115/60
== END 2022-10-23 09:21 | disposition home or self-care (01) ==
LOC: OR 06:57
PROVIDERS: ATTEND Internal Medicine Gastroenterology
PROC: 0DBP8ZX Excision of Rectum, Via Natural or Artificial Opening Endoscopic, Diagnostic (ICD-10-PCS; principal; 2022-10-23 08:00)
DX: R10.32 Left lower quadrant pain (principal); D12.7 Benign neoplasm of rectosigmoid junction; R93.3 Abnormal findings on diagnostic imaging of other parts of digestive tract; K64.8 Other hemorrhoids; K64.4 Residual hemorrhoidal skin tags; K57.30 Diverticulosis of large intestine without perforation or abscess without bleeding
CPT/HCPCS: 45385; 45380; 82947; 88305; J2704; J2001; J7030

== ENCOUNTER 2022-10-28 11:27 | Observation (INO) | payer BC ==
--- OUTSIDE RECORDS SUMMARY | 2022-10-28 11:36 | XMS REPORT | Continuity of Care Document ---
:1960 Author Organization [facility] Address [address] [place] [id number] [place] [id number] Care Team Providers Name Role Phone PCP, PATIENT DOES NOT HAVE A Primary Care Physician Unavaila Jhonny Paul Attending Clinician Unavailable MYRNA ALVARADO Attending Clinician Unavailable Only, Ang Db Test Attending Clinician Unavailable Myrna Alvarado MD Attending Clinician Manolo RN, Evi Rodriguez Attending Clinician Unavailable Doctor Unassigned, [place] Attending Clinician Unavailable Payers Payer Name Policy Type Policy Number Effective Date Expiration Date S kalie Blue Cross 6 [id number] 2022 [facility] [employer] Shield 00:00:00 - [facility] AETNA 53 [id number] 2022 [facility] 00:00:00 - [facility] [id number] 2021 00:00:00 Blue Cross C1 [id number] [facility] Blue Shield - [facility] Problems Condition Condition Condition Status Onset Resolution Last Treating Co mments Source Name Details Category Date Date Treatment Clinician Date [id number] 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 diabetes - [facility] mellitus [facility] hyperglyce [facility] [id number] HTN, goal Problem Comm on below Spirit 130/80 - [facility] [id number] Nonalcohol Problem Co mmon ic fatty Spirit liver - [facility] disease [facility] [id number] Constipati Problem Com mon on, Spirit unspecifie - [facility]I d [facility] [id number] 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 2 diabetes Medica [facility] mellitus Center [id number] Mixed Problem Common hyperlipid [facility] emia [facility] [id number] Multinodul Problem Co mmon ar goiter [facility] Allergies, Adverse Reactions, Alerts Allergy Allergy Status Severity Reaction(s) Onset Inactive Treating Comm ents Source Name Type Date Date Clinician Codeine Codeine Active Unknown [facility] NO KNOWN Drug [facility] Social History Social Habit Start Date Stop Date Quantity Comments Source History of Tobacco Use Co mmon [facility] Sex Assigned At Com mon [facility] Exposure to SARS-CoV-2 Not sure Un [facility] Smoking Status Start Date Stop Date Source Unknown if ever smoked [facility] Never Smoker [facility] Medications Ordered Filled Start Stop Current Ordering Indication Dosage Frequency Signature Comments Components Source Medication Medication Date Date Medication? Clinician (SIG) Name Name Marcellobarbie Alexandraity 2022- No Trulicity 0.75mg/0.5m 0.75mg/0.5m 18 02-17 0.75mg/0.5 l l 00:00: 00:00 ml 00 :00 Alexandramarlon Alexandramarlon 2022- No Trulicity 0.75mg/0.5m 0.75mg/0.5m 18 02-17 0.75mg/0.5 l l 00:00: 00:00 ml 00 :00 Alexandramarlon Alexandramarlon 2022-0 2022- No Trulicity 0.75mg/0.5m 0.75mg/0.5m -18 02-15 0.75mg/0.5 l l 00:00: 00:00 ml 00 :00 Motyrone 10 Ashley 10 2021-09- No Mounjaro MG/0.5ML MG/0.5ML 10-14 10 00:00: 00:00 MG/0.5ML 00 :00 Lyrica 75 Lyrica 75 2021-09 No 1{capsu BID Lyrica 75 MG MG 2-12 le} MG 00:00: 00 Lyrica 75 Lyrica 75 2021-09 No 1{capsu BID Lyrica 75 MG MG 2-12 le} MG 00:00: 00 Lyrica 75 Lyrica 75 2021-09 No 1{capsu BID Lyrica 75 MG MG 2-12 le} MG 00:00: 00 Lyrica 75 Lyrica 75 2021-09 No 1{capsu BID Lyrica 75 MG MG 2-12 le} MG 00:00: 00 Lyrica 75 Lyrica 75 2021-09 No 1{capsu BID Lyrica 75 MG MG 2-12 le} MG 00:00: 00 Pregabalin Pregabalin 2021-09 No Pregabalin 75 MG 75 MG 1-21 75 MG 00:00: 00 Pregabalin Pregabalin 2021-09 No Pregabalin 75 MG 75 MG 1-21 75 MG 00:00: 00 Pregabalin Pregabalin 2021-09 No Pregabalin 75 MG 75 MG 1-21 75 MG 00:00: 00 Pregabalin Pregabalin 2021-09 No Pregabalin 75 MG 75 MG 1-21 75 MG 00:00: 00 Pregabalin Pregabalin 2021-09 No Pregabalin 75 MG 75 MG 1-21 75 MG 00:00: 00 Pregabalin Pregabalin 2021-09 No Pregabalin 75 MG 75 MG 1-21 75 MG 00:00: 00 Pregabalin Pregabalin 2021-09 No Pregabalin 75 MG 75 MG 1-21 75 MG 00:00: 00 Ashley 5 Ashley 5 2021-09- No Mounjaro 5 MG/0.5ML MG/0.5ML 1-16 12-14 MG/0.5ML 00:00: 00:00 00 :00 Mounjaro 5 Mounjaro 5 2021-09- No Mounjaro 5 MG/0.5ML MG/0.5ML 1-16 12-14 MG/0.5ML 00:00: 00:00 00 :00 Mounjaro 5 Mounjaro 5 2021-09- No Mounjaro 5 MG/0.5ML MG/0.5ML 1-16 12-14 MG/0.5ML 00:00: 00:00 00 :00 Mounjaro 5 Mounjaro 5 2021-09- No Mounjaro 5 MG/0.5ML MG/0.5ML 1-16 12-14 MG/0.5ML 00:00: 00:00 00 :00 Sulfamethox Sulfamethox 2021-09- No 1{table BID Sulfametho azole-Trime azole-Trime 09-01 11-10 t} xazole-Tri thoprim thoprim 00:00: 00:00 methoprim 800-160 MG 800-160 MG 00 :00 800-160 MG Sulfamethox Sulfamethox 2021-09- No 1{table BID Sulfametho azole-Trime azole-Trime 09-01 11-10 t} xazole-Tri thoprim thoprim 00:00: 00:00 methoprim 800-160 MG 800-160 MG 00 :00 800-160 MG Pregabalin Pregabalin 2021-09 No Pregabalin 75 MG 75 MG 0-21 75 MG 00:00: 00 Pregabalin Pregabalin 2021-09 No Pregabalin 75 MG 75 MG 0-21 75 MG 00:00: 00 Pregabalin Pregabalin 2021-09 No Pregabalin 75 MG 75 MG 0-21 75 MG 00:00: 00 Pregabalin Pregabalin 2021- No Pregabalin 75 MG 75 MG 0-21 75 MG 00:00: 00 Macrobid Macrobid 2021-09- No BID Macrobid 100 MG 100 MG 0-19 10-24 100 MG 00:00: 00:00 00 :00 Macrobid Macrobid 2021-09- No BID Macrobid 100 MG 100 MG -19 -24 100 MG 00:00: 00:00 00 :00 Mounjaro Mounjaro 2021-09- No Mounjaro 2.5 2.5 0-05 11-04 2.5 MG/0.5ML MG/0.5ML 00:00: 00:00 MG/0.5ML 00 :00 Mounjaro Mounjaro 2021-09- No Mounjaro 2.5 2.5 0-05 11-04 2.5 MG/0.5ML MG/0.5ML 00:00: 00:00 MG/0.5ML 00 :00 Mounjaro Mounjaro 2021-09- No Mounjaro 2.5 2.5 0-05 11-04 2.5 MG/0.5ML MG/0.5ML 00:00: 00:00 MG/0.5ML 00 :00 Mounjaro Mounjaro 2021-09- No Mounjaro 2.5 2.5 0-05 11-04 2.5 MG/0.5ML MG/0.5ML 00:00: 00:00 MG/0.5ML 00 :00 Mounjaro Mounjaro 2021-09- No Mounjaro 2.5 2.5 0-05 11-04 2.5 MG/0.5ML MG/0.5ML 00:00: 00:00 MG/0.5ML 00 :00 Mounjaro Mounjaro 2021-09- No Mounjaro 2.5 2.5 0-05 11-04 2.5 MG/0.5ML MG/0.5ML 00:00: 00:00 MG/0.5ML 00 :00 Mounjaro Mounjaro 2021-09- No Mounjaro 2.5 2.5 0-05 11-04 2.5 MG/0.5ML MG/0.5ML 00:00: 00:00 MG/0.5ML 00 :00 Pregabalin Pregabalin 2022-0 No Pregabalin 75 MG 75 MG 9-23 75 MG 00:00: 00 Pregabalin Pregabalin 2-0 No Pregabalin 75 MG 75 MG 9-23 75 MG 00:00: 00 Pregabalin Pregabalin 2-0 No Pregabalin 75 MG 75 MG 9-23 75 MG 00:00: 00 Pregabalin Pregabalin 2-0 No Pregabalin 75 MG 75 MG 9-23 75 MG 00:00: 00 Pregabalin Pregabalin 2-0 No Pregabalin 75 MG 75 MG 8-26 75 MG 00:00: 00 Pregabalin Pregabalin 2021-0 No Pregabalin 75 MG 75 MG 7-29 75 MG 00:00: 00 Pregabalin Pregabalin 2-0 No Pregabalin 75 MG 75 MG 7-29 75 MG 00:00: 00 Lyrica 75 Lyrica 75 2021-0 No 1{capsu BID Lyrica 75 MG MG 5-09 le} MG 00:00: 00 Lyrica 75 Lyrica 75 2021-0 No 1{capsu BID Lyrica 75 MG MG 1-05 le} MG 00:00: 00 Lyrica 75 Lyrica 75 2-0 No 1{capsu BID Lyrica 75 MG MG 1-05 le} MG 00:00: 00 Lyrica 75 Lyrica 75 2-0 No 1{capsu BID Lyrica 75 MG MG 1-05 le} MG 00:00: 00 Lyrica 75 Lyrica 75 2-0 No 1{capsu BID Lyrica 75 MG MG 1-05 le} MG 00:00: 00 Lyrica 75 Lyrica 75 2-0 No 1{capsu BID Lyrica 75 MG MG 1-05 le} MG 00:00: 00 Jardiance Jardiance 2021-0 2- No 1{table QD Jardiance 10 MG 10 MG 09-05 t} 10 MG 00:00: 00:00 00 :00 Jardiance Jardiance 2021-0 2- No 1{table QD Jardiance 10 MG 10 MG 09-05 t} 10 MG 00:00: 00:00 00 :00 Jardiance Jardiance 2021-0 2- No 1{table QD Jardiance 10 MG 10 MG 09-05 t} 10 MG 00:00: 00:00 00 :00 Jardiance Jardiance 2-0 2- No 1{table QD Jardiance 10 MG 10 MG 09-05 t} 10 MG 00:00: 00:00 00 :00 Pregabalin Pregabalin 2021-0 No Pregabalin 75 MG 75 MG 9-30 75 MG 00:00: 00 Pregabalin Pregabalin 2021-0 No Pregabalin 75 MG 75 MG 9-30 75 MG 00:00: 00 Pregabalin Pregabalin 2021-0 No 75 MG 75 MG 9-30 00:00: 00 Pregabalin Pregabalin 2021-0 No Pregabalin 75 MG 75 MG 9-30 75 MG 00:00: 00 Pregabalin Pregabalin 2021-0 No Pregabalin 75 MG 75 MG 9-30 75 MG 00:00: 00 Pregabalin Pregabalin 2021-0 No Pregabalin 75 MG 75 MG 9-30 75 MG 00:00: 00 Pregabalin Pregabalin 2021-0 No Pregabalin 75 MG 75 MG 9-30 75 MG 00:00: 00 Pregabalin Pregabalin 2021-0 No Pregabalin 75 MG 75 MG 9-30 75 MG 00:00: 00 Pregabalin Pregabalin 2021-0 No Pregabalin 75 MG 75 MG 9-30 75 MG 00:00: 00 Pregabalin Pregabalin 2021-0 No Pregabalin 75 MG 75 MG 9-30 75 MG 00:00: 00 Pregabalin Pregabalin 2021-0 No Pregabalin 75 MG 75 MG 9-30 75 MG 00:00: 00 Pregabalin Pregabalin 2021-0 No Pregabalin 75 MG 75 MG 9-30 75 MG 00:00: 00 Pregabalin Pregabalin 2021-0 No Pregabalin 75 MG 75 MG 9-30 75 MG 00:00: 00 Pregabalin Pregabalin 2021-0 No Pregabalin 75 MG 75 MG 9-30 75 MG 00:00: 00 Pregabalin Pregabalin 2021-0 No Pregabalin 75 MG 75 MG 9-30 75 MG 00:00: 00 Pregabalin Pregabalin 2021-0 No Pregabalin 75 MG 75 MG 9-30 75 MG 00:00: 00 Ondansetron Ondansetron No 1{table Ondansetro 4 MG 4 MG 8-23 t_on_th n 4 MG 00:00: e_tongu 00 e_and_a llow_to _dissol ve} Ondansetron Ondansetron No 1{table Ondansetro 4 MG 4 MG 8-23 t_on n 4 MG 00:00: e_tongu 00 e_and_a llow_to _dissol ve} Ondansetron Ondansetron No 1{table Ondansetro 4 MG 4 MG 8-23 t_on n 4 MG 00:00: e_tongu e_and_a llow_to _dissol ve} Ondansetron Ondansetron No 1{table Ondansetro 4 MG 4 MG 8-23 t_on n 4 MG 00:00: e_tongu e_and_a llow_to _dissol ve} Ondansetron Ondansetron 2020- No 1{table Ondansetro 4 MG 4 MG 8-23 t_on n 4 MG 00:00: e_tongu e_and_a llow_to _dissol ve} Ondansetron Ondansetron 2020-0 No 1{table Ondansetro 4 MG 4 MG 8-23 t_on n 4 MG 00:00: e_tongu e_and_a llow_to _dissol ve} Ondansetron Ondansetron 2020-0 No 1{table Ondansetro 4 MG 4 MG 8-23 t_on_th n 4 MG 00:00: e_tongu e_and_a llow_to _dissol ve} Ondansetron Ondansetron 2020-0 No 1{table Ondansetro 4 MG 4 MG 8-23 t_on_th n 4 MG 00:00: e_tongu e_and_a llow_to _dissol ve} Ondansetron Ondansetron 2020-0 No 1{table Ondansetro 4 MG 4 MG 8-23 t_on n 4 MG 00:00: e_tongu 00 e_and_a llow_to _dissol ve} Ondansetron Ondansetron 2020-0 No 1{table Ondansetro 4 MG 4 MG 8-23 t_onth n 4 MG 00:00: e_tongu 00 e_and_a llow_to _dissol ve} Ondansetron Ondansetron 2020-0 No 1{table Ondansetro 4 MG 4 MG 8-23 t_ n 4 MG 00:00: e_tongu 00 e_and_a llow_to _dissol ve} Ondansetron Ondansetron 2020-0 No 1{table 4 MG 4 MG 8-23 t_ 00:00: e_tongu 00 e_and_a llow_to _dissol ve} Ondansetron Ondansetron 2020-0 No 1{table Ondansetro 4 MG 4 MG 8-23 t_ n 4 MG 00:00: e_tongu 00 e_and_a llow_to _dissol ve} Ondansetron Ondansetron 2020-0 No 1{table Ondansetro 4 MG 4 MG 8-23 t_ n 4 MG 00:00: e_tongu 00 e_and_a llow_to _dissol ve} Ondansetron Ondansetron 2020-0 No 1{table Ondansetro 4 MG 4 MG 8-23 t_on n 4 MG 00:00: e_tongu 00 e_and_a llow_to _dissol ve} Ondansetron Ondansetron 2020-0 No 1{table Ondansetro 4 MG 4 MG 8-23 t_on n 4 MG 00:00: e_tongu 00 e_and_a llow_to _dissol ve} Ondansetron Ondansetron 2020-0 No 1{table Ondansetro 4 MG 4 MG 8-23 t_on n 4 MG 00:00: e_tongu 00 e_and_a llow_to _dissol ve} Ondansetron Ondansetron 2020-0 No 1{table Ondansetro 4 MG 4 MG 8-23 t_on n 4 MG 00:00: e_tongu e_and_a llow_to _dissol ve} Ondansetron Ondansetron 2020-0 No 1{table Ondansetro 4 MG 4 MG 8-23 t_on n 4 MG 00:00: e_tongu 00 e_and_a llow_to _dissol ve} Ondansetron Ondansetron 2020-0 No 1{table Ondansetro 4 MG 4 MG 8-23 t_ n 4 MG 00:00: e_tongu e_and_a llow_to _dissol ve} Ondansetron Ondansetron 2020-0 No 1{table Ondansetro 4 MG 4 MG 8-23 t_on n 4 MG 00:00: e_tongu e_and_a llow_to _dissol ve} Ondansetron Ondansetron 2020-0 No 1{table Ondansetro 4 MG 4 MG 8-23 t_ n 4 MG 00:00: e_tongu e_and_a llow_to _dissol ve} Ondansetron Ondansetron 2020-0 No 1{table Ondansetro 4 MG 4 MG 8-23 t_on n 4 MG 00:00: e_tongu e_and_a llow_to _dissol ve} Ondansetron Ondansetron 2020-0 No 1{table Ondansetro 4 MG 4 MG 8-23 t_on_th n 4 MG 00:00: e_tongu e_and_a llow_to _dissol ve} Ondansetron Ondansetron 2020-0 No 1{table Ondansetro 4 MG 4 MG 8-23 t_onth n 4 MG 00:00: e_tongu e_and_a llow_to _dissol ve} Ondansetron Ondansetron 2020-0 No 1{table Ondansetro 4 MG 4 MG 8-23 t_on_th n 4 MG 00:00: e_tongu 00 e_and_a llow_to _dissol ve} Ondansetron Ondansetron 2020-0 No 1{table Ondansetro 4 MG 4 MG 8-23 t_on_th n 4 MG 00:00: e_tongu 00 e_and_a llow_to _dissol ve} Ondansetron Ondansetron 2020-0 No 1{table Ondansetro 4 MG 4 MG 8-23 t_on_th n 4 MG 00:00: e_tongu 00 e_and_a llow_to _dissol ve} Ondansetron Ondansetron 2020-0 No 1{table Ondansetro 4 MG 4 MG 8-23 t_on_th n 4 MG 00:00: e_tongu e_and_a llow_to _dissol ve} Ondansetron Ondansetron 2020-0 No 1{table Ondansetro 4 MG 4 MG 8-23 t_on_ n 4 MG 00:00: e_tongu 00 e_and_a llow_to _dissol ve} Ondansetron Ondansetron 2020-0 No 1{table Ondansetro 4 MG 4 MG 8-23 t_on_ n 4 MG 00:00: e_tongu 00 e_and_a llow_to _dissol ve} Ondansetron Ondansetron 2020-0 No 1{table Ondansetro 4 MG 4 MG 8-23 t_on_th n 4 MG 00:00: e_tongu 00 e_and_a llow_to _dissol ve} Ondansetron Ondansetron 2020-0 No 1{table Ondansetro 4 MG 4 MG 8-23 t_on_th n 4 MG 00:00: e_tongu 00 e_and_a llow_to _dissol ve} Ondansetron Ondansetron 2020-0 No 1{table Ondansetro 4 MG 4 MG 8-23 t_on_th n 4 MG 00:00: e_tongu 00 e_and_a llow_to _dissol ve} Ondansetron Ondansetron 2020-0 No 1{table Ondansetro 4 MG 4 MG 8-23 t_on_th n 4 MG 00:00: e_tongu 00 e_and_a llow_to _dissol ve} Amitriptyli Amitriptyli 2020-0 No 1{table QD Amitriptyl ne HCl 10 ne HCl 10 3-02 t_at_be ine HCl 10 MG MG 00:00: dtime} MG 00 Amitriptyli Amitriptyli 2020-0 No 1{table QD Amitriptyl ne HCl 10 ne HCl 10 3-02 t_at_be ine HCl 10 MG MG 00:00: dtime} MG 00 Amitriptyli Amitriptyli 2020-0 No 1{table QD Amitriptyl ne HCl 10 ne HCl 10 3-02 t_at_be ine HCl 10 MG MG 00:00: dtime} MG 00 Amitriptyli Amitriptyli 2020-0 No 1{table QD Amitriptyl ne HCl 10 ne HCl 10 3-02 t_at_be ine HCl 10 MG MG 00:00: dtime} MG 00 Amitriptyli Amitriptyli 2020-0 No 1{table QD Amitriptyl ne HCl 10 ne HCl 10 3-02 t_at_be ine HCl 10 MG MG 00:00: dtime} MG 00 Amitriptyli Amitriptyli 2020-0 No 1{table QD Amitriptyl ne HCl 10 ne HCl 10 3-02 t_at_be ine HCl 10 MG MG 00:00: dtime} MG 00 Amitriptyli Amitriptyli 2020-0 No 1{table QD Amitriptyl ne HCl 10 ne HCl 10 3-02 t_at_be ine HCl 10 MG MG 00:00: dtime} MG 00 Amitriptyli Amitriptyli 2020-0 No 1{table QD Amitriptyl ne HCl 10 ne HCl 10 3-02 t_at_be ine HCl 10 MG MG 00:00: dtime} MG 00 Amitriptyli Amitriptyli 2020-0 No 1{table QD Amitriptyl ne HCl 10 ne HCl 10 3-02 t_at_be ine HCl 10 MG MG 00:00: dtime} MG 00 Amitriptyli Amitriptyli 2020-0 No 1{table QD Amitriptyl ne HCl 10 ne HCl 10 3-02 t_at_be ine HCl 10 MG MG 00:00: dtime} MG 00 Amitriptyli Amitriptyli 2020-0 No 1{table QD Amitriptyl ne HCl 10 ne HCl 10 3-02 t_at_be ine HCl 10 MG MG 00:00: dtime} MG 00 Amitriptyli Amitriptyli 2020-0 No 1{table QD Amitriptyl ne HCl 10 ne HCl 10 3-02 t_at_be ine HCl 10 MG MG 00:00: dtime} MG 00 Amitriptyli Amitriptyli 2020-0 No 1{table QD ne HCl 10 ne HCl 10 3-02 t_at_be MG MG 00:00: dtime} 00 Amitriptyli Amitriptyli 2020-0 No 1{table QD Amitriptyl ne HCl 10 ne HCl 10 3-02 t_at_be ine HCl 10 MG MG 00:00: dtime} MG 00 Amitriptyli Amitriptyli 2020-0 No 1{table QD Amitriptyl ne HCl 10 ne HCl 10 3-02 t_at_be ine HCl 10 MG MG 00:00: dtime} MG 00 Amitriptyli Amitriptyli 2020-0 No 1{table QD Amitriptyl ne HCl 10 ne HCl 10 3-02 t_at_be ine HCl 10 MG MG 00:00: dtime} MG 00 Amitriptyli Amitriptyli 2020-0 No 1{table QD Amitriptyl ne HCl 10 ne HCl 10 3-02 t_at_be ine HCl 10 MG MG 00:00: dtime} MG 00 Amitriptyli Amitriptyli 2020-0 No 1{table QD Amitriptyl ne HCl 10 ne HCl 10 3-02 t_at_be ine HCl 10 MG MG 00:00: dtime} MG 00 Amitriptyli Amitriptyli 2020-0 No 1{table QD Amitriptyl ne HCl 10 ne HCl 10 3-02 t_at_be ine HCl 10 MG MG 00:00: dtime} MG 00 Amitriptyli Amitriptyli 2020-0 No 1{table QD Amitriptyl ne HCl 10 ne HCl 10 3-02 t_at_be ine HCl 10 MG MG 00:00: dtime} MG 00 Amitriptyli Amitriptyli 2020-0 No 1{table QD Amitriptyl ne HCl 10 ne HCl 10 3-02 t_at_be ine HCl 10 MG MG 00:00: dtime} MG 00 Amitriptyli Amitriptyli 2020-0 No 1{table QD Amitriptyl ne HCl 10 ne HCl 10 3-02 t_at_be ine HCl 10 MG MG 00:00: dtime} MG 00 Amitriptyli Amitriptyli 2020-0 No 1{table QD Amitriptyl ne HCl 10 ne HCl 10 3-02 t_at_be ine HCl 10 MG MG 00:00: dtime} MG 00 Amitriptyli Amitriptyli 2020-0 No 1{table QD Amitriptyl ne HCl 10 ne HCl 10 3-02 t_at_be ine HCl 10 MG MG 00:00: dtime} MG 00 Amitriptyli Amitriptyli 2020-0 No 1{table QD Amitriptyl ne HCl 10 ne HCl 10 3-02 t_at_be ine HCl 10 MG MG 00:00: dtime} MG 00 Amitriptyli Amitriptyli 2020-0 No 1{table QD Amitriptyl ne HCl 10 ne HCl 10 3-02 t_at_be ine HCl 10 MG MG 00:00: dtime} MG 00 Amitriptyli Amitriptyli 2020-0 No 1{table QD Amitriptyl ne HCl 10 ne HCl 10 3-02 t_at_be ine HCl 10 MG MG 00:00: dtime} MG 00 Amitriptyli Amitriptyli 2020-0 No 1{table QD Amitriptyl ne HCl 10 ne HCl 10 3-02 t_at_be ine HCl 10 MG MG 00:00: dtime} MG 00 Amitriptyli Amitriptyli No 1{table QD Amitriptyl ne HCl 10 ne HCl 10 3-02 t_at_be ine HCl 10 MG MG 00:00: dtime} MG 00 Amitriptyli Amitriptyli No 1{table QD Amitriptyl ne HCl 10 ne HCl 10 3-02 t_at_be ine HCl 10 MG MG 00:00: dtime} MG 00 Amitriptyli Amitriptyli No 1{table QD Amitriptyl ne HCl 10 ne HCl 10 3-02 t_at_be ine HCl 10 MG MG 00:00: dtime} MG 00 Amitriptyli Amitriptyli No 1{table QD Amitriptyl ne HCl 10 ne HCl 10 3-02 t_at_be ine HCl 10 MG MG 00:00: dtime} MG 00 Amitriptyli Amitriptyli No 1{table QD Amitriptyl ne HCl 10 ne HCl 10 3-02 t_at_be ine HCl 10 MG MG 00:00: dtime} MG 00 Amitriptyli Amitriptyli No 1{table QD Amitriptyl ne HCl 10 ne HCl 10 3-02 t_at_be ine HCl 10 MG MG 00:00: dtime} MG 00 Amitriptyli Amitriptyli No 1{table QD Amitriptyl ne HCl 10 ne HCl 10 3-02 t_at_be ine HCl 10 MG MG 00:00: dtime} MG 00 Atorvastati Atorvastati No 1{table QD Atorvastat n Calcium n Calcium t} in Calcium 20 MG 20 MG 20 MG Vitamin C Vitamin C No 1{table QD Vitamin C 1000 MG 1000 MG t} 1000 MG No 1{table QD Vitamins - Vitamins - t} Vitamins - glipiZIDE glipiZIDE No 1{table QD glipiZIDE XL 5 MG XL 5 MG t_with_ XL 5 MG food} Atorvastati Atorvastati No Atorvastat n Calcium n Calcium in Calcium 20 MG 20 MG 20 MG Ozempic 1 Ozempic 1 No Ozempic 1 MG/DOSE MG/DOSE MG/DOSE Irbesartan Irbesartan No Irbesartan 150 MG 150 MG 150 MG Metoprolol Metoprolol No 1{table QD Metoprolol Succinate Succinate t} Succinate ER 100 MG ER 100 MG ER 100 MG Simvastatin Simvastatin No Simvastati 40 MG 40 MG n 40 MG Atomoxetine Atomoxetine No Atomoxetin HCl 100 MG HCl 100 MG e HCl 100 MG Fish Oil Fish Oil No 1{capsu QD Fish Oil 1200 MG 1200 MG le} 1200 MG Atomoxetine Atomoxetine No 1{capsu QD Atomoxetin HCl 100 MG HCl 100 MG le_in_t e HCl 100 he_morn MG ing} glipiZIDE glipiZIDE No glipiZIDE ER 5 MG ER 5 MG ER 5 MG Vitamin D Vitamin D No 1{table QD Vitamin D 2000 UNIT 2000 UNIT t} 2000 UNIT Vitamin C Vitamin C No 1{table QD Vitamin C 1000 MG 1000 MG t} 1000 MG glipiZIDE glipiZIDE No 1{table QD glipiZIDE XL 5 MG XL 5 MG t_with_ XL 5 MG food} metFORMIN metFORMIN No metFORMIN HCl ER 750 HCl ER 750 HCl ER 750 MG MG MG Lyrica 75 Lyrica 75 No 1{capsu BID Lyrica 75 MG MG le} MG Atorvastati Atorvastati No 1{table QD Atorvastat n Calcium n Calcium t} in Calcium 20 MG 20 MG 20 MG Aspir-Low Aspir-Low No 1{table QD Aspir-Low 81 MG 81 MG t} 81 MG Clopidogrel Clopidogrel No Clopidogre Bisulfate Bisulfate l 75 MG 75 MG Bisulfate 75 MG Irbesartan Irbesartan No 1{table QD Irbesartan 150 MG 150 MG t} 150 MG Metformin Metformin No 1{table BID Metformin HCl 1000 MG HCl 1000 MG t_with_ HCl 1000 meals} MG Metoprolol Metoprolol No 1{table QD Metoprolol Succinate Succinate t} Succinate ER 100 MG ER 100 MG ER 100 MG Ozempic (1 Ozempic (1 No Ozempic (1 MG/DOSE) 2 MG/DOSE) 2 MG/DOSE) 2 MG/1.5ML MG/1.5ML MG/1.5ML Magnesium Magnesium No 1{table QD Magnesium 500 MG 500 MG t_with_ 500 MG a_meal} Ozempic (1 Ozempic (1 No Ozempic (1 MG/DOSE) 4 MG/DOSE) 4 MG/DOSE) 4 MG/3ML MG/3ML MG/3ML No 1{table QD Vitamins - Vitamins - t} Vitamins - metFORMIN metFORMIN No metFORMIN HCl ER 750 HCl ER 750 HCl ER 750 MG MG MG Simvastatin Simvastatin No Simvastati 40 MG 40 MG n 40 MG Irbesartan Irbesartan No Irbesartan 150 MG 150 MG 150 MG Fish Oil Fish Oil No 1{capsu QD Fish Oil 1200 MG 1200 MG le} 1200 MG [place] 75 [place] 75 No 1{capsu BID [place] 75 MG MG le} MG glipiZIDE glipiZIDE No glipiZIDE ER 5 MG ER 5 MG ER 5 MG Atorvastati Atorvastati No Atorvastat n Calcium n Calcium in Calcium 20 MG 20 MG 20 MG Metoprolol Metoprolol No 1{table QD Metoprolol Succinate Succinate t} Succinate ER 100 MG ER 100 MG ER 100 MG Vitamin D Vitamin D No 1{table QD Vitamin D 2000 UNIT 2000 UNIT t} 2000 UNIT Atomoxetine Atomoxetine No Atomoxetin HCl 100 MG HCl 100 MG e HCl 100 MG Metformin Metformin No 1{table BID Metformin HCl 1000 MG HCl 1000 MG t_with_ HCl 1000 meals} MG metFORMIN metFORMIN No metFORMIN HCl ER 750 HCl ER 750 HCl ER 750 MG MG MG Aspir-Low Aspir-Low No 1{table QD Aspir-Low 81 MG 81 MG t} 81 MG Ozempic 1 Ozempic 1 No Ozempic 1 MG/DOSE MG/DOSE MG/DOSE Clopidogrel Clopidogrel No Clopidogre Bisulfate Bisulfate l 75 MG 75 MG Bisulfate 75 MG Metoprolol Metoprolol No 1{table QD Metoprolol Succinate Succinate t} Succinate ER 100 MG ER 100 MG ER 100 MG Vitamin C Vitamin C No 1{table QD Vitamin C 1000 MG 1000 MG t} 1000 MG glipiZIDE glipiZIDE No 1{table QD glipiZIDE XL 5 MG XL 5 MG t_with_ XL 5 MG food} Ozempic (1 Ozempic (1 No Ozempic (1 MG/DOSE) 4 MG/DOSE) 4 MG/DOSE) 4 MG/3ML MG/3ML MG/3ML Ozempic (1 Ozempic (1 No Ozempic (1 MG/DOSE) 2 MG/DOSE) 2 MG/DOSE) 2 MG/1.5ML MG/1.5ML MG/1.5ML Magnesium Magnesium No 1{table QD Magnesium 500 MG 500 MG t_with_ 500 MG a_meal} No 1{table QD Vitamins - Vitamins - t} Vitamins - Simvastatin Simvastatin No Simvastati 40 MG 40 MG n 40 MG Irbesartan Irbesartan No Irbesartan 150 MG 150 MG 150 MG Fish Oil Fish Oil No 1{capsu QD Fish Oil 1200 MG 1200 MG le} 1200 MG [place] 75 [place] 75 No 1{capsu BID [place] 75 MG MG le} MG glipiZIDE glipiZIDE No glipiZIDE ER 5 MG ER 5 MG ER 5 MG Atorvastati Atorvastati No Atorvastat n Calcium n Calcium in Calcium 20 MG 20 MG 20 MG Metoprolol Metoprolol No 1{table QD Metoprolol Succinate Succinate t} Succinate ER 100 MG ER 100 MG ER 100 MG Vitamin D Vitamin D No 1{table QD Vitamin D 2000 UNIT 2000 UNIT t} 2000 UNIT Atomoxetine Atomoxetine No Atomoxetin HCl 100 MG HCl 100 MG e HCl 100 MG Metformin Metformin No 1{table BID Metformin HCl 1000 MG HCl 1000 MG t_with_ HCl 1000 meals} MG metFORMIN metFORMIN No metFORMIN HCl ER 750 HCl ER 750 HCl ER 750 MG MG MG Aspir-Low Aspir-Low No 1{table QD Aspir-Low 81 MG 81 MG t} 81 MG Ozempic 1 Ozempic 1 No Ozempic 1 MG/DOSE MG/DOSE MG/DOSE Clopidogrel Clopidogrel No Clopidogre Bisulfate Bisulfate l 75 MG 75 MG Bisulfate 75 MG Metoprolol Metoprolol No 1{table QD Metoprolol Succinate Succinate t} Succinate ER 100 MG ER 100 MG ER 100 MG Vitamin C Vitamin C No 1{table QD Vitamin C 1000 MG 1000 MG t} 1000 MG glipiZIDE glipiZIDE No 1{table QD glipiZIDE XL 5 MG XL 5 MG t_with_ XL 5 MG food} Ozempic (1 Ozempic (1 No Ozempic (1 MG/DOSE) 4 MG/DOSE) 4 MG/DOSE) 4 MG/3ML MG/3ML MG/3ML Ozempic (1 Ozempic (1 No Ozempic (1 MG/DOSE) 2 MG/DOSE) 2 MG/DOSE) 2 MG/1.5ML MG/1.5ML MG/1.5ML Magnesium Magnesium No 1{table QD Magnesium 500 MG 500 MG t_with_ 500 MG a_meal} No 1{table QD Vitamins - Vitamins - t} Vitamins - No 1{table QD Vitamins - Vitamins - t} Vitamins - glipiZIDE glipiZIDE No 1{table QD glipiZIDE XL 5 MG XL 5 MG t_with_ XL 5 MG food} metFORMIN metFORMIN No metFORMIN HCl ER 750 HCl ER 750 HCl ER 750 MG MG MG Ozempic (1 Ozempic (1 No Ozempic (1 MG/DOSE) 2 MG/DOSE) 2 MG/DOSE) 2 MG/1.5ML MG/1.5ML MG/1.5ML Magnesium Magnesium No 1{table QD Magnesium 500 MG 500 MG t_with_ 500 MG a_meal} Atomoxetine Atomoxetine No Atomoxetin HCl 100 MG HCl 100 MG e HCl 100 MG Metformin Metformin No 1{table BID Metformin HCl 1000 MG HCl 1000 MG t_with_ HCl 1000 meals} MG Aspir-Low Aspir-Low No 1{table QD Aspir-Low 81 MG 81 MG t} 81 MG Vitamin D Vitamin D No 1{table QD Vitamin D 2000 UNIT 2000 UNIT t} 2000 UNIT Lyrica 75 Lyrica 75 No 1{capsu BID Lyrica 75 MG MG le} MG Metoprolol Metoprolol No 1{table QD Metoprolol Succinate Succinate t} Succinate ER 100 MG ER 100 MG ER 100 MG glipiZIDE glipiZIDE No glipiZIDE ER 5 MG ER 5 MG ER 5 MG Fish Oil Fish Oil No 1{capsu QD Fish Oil 1200 MG 1200 MG le} 1200 MG Ozempic (1 Ozempic (1 No Ozempic (1 MG/DOSE) 4 MG/DOSE) 4 MG/DOSE) 4 MG/3ML MG/3ML MG/3ML Ozempic 1 Ozempic 1 No Ozempic 1 MG/DOSE MG/DOSE MG/DOSE Simvastatin Simvastatin No Simvastati 40 MG 40 MG n 40 MG Vitamin C Vitamin C No 1{table QD Vitamin C 1000 MG 1000 MG t} 1000 MG Metoprolol Metoprolol No 1{table QD Metoprolol Succinate Succinate t} Succinate ER 100 MG ER 100 MG ER 100 MG Clopidogrel Clopidogrel No Clopidogre Bisulfate Bisulfate l 75 MG 75 MG Bisulfate 75 MG Atorvastati Atorvastati No Atorvastat n Calcium n Calcium in Calcium 20 MG 20 MG 20 MG Irbesartan Irbesartan No Irbesartan 150 MG 150 MG 150 MG Magnesium Magnesium No 1{table QD Magnesium 500 MG 500 MG t_with_ 500 MG a_meal} Irbesartan Irbesartan No Irbesartan 150 MG 150 MG 150 MG metFORMIN metFORMIN No metFORMIN HCl ER 750 HCl ER 750 HCl ER 750 MG MG MG Metformin Metformin No 1{table BID Metformin HCl 1000 MG HCl 1000 MG t_with_ HCl 1000 meals} MG Ozempic (1 Ozempic (1 No Ozempic (1 MG/DOSE) 2 MG/DOSE) 2 MG/DOSE) 2 MG/1.5ML MG/1.5ML MG/1.5ML Atomoxetine Atomoxetine No Atomoxetin HCl 100 MG HCl 100 MG e HCl 100 MG Atorvastati Atorvastati No Atorvastat n Calcium n Calcium in Calcium 20 MG 20 MG 20 MG Lyrica 75 Lyrica 75 No 1{capsu BID Lyrica 75 MG MG le} MG Fish Oil Fish Oil No 1{capsu QD Fish Oil 1200 MG 1200 MG le} 1200 MG glipiZIDE glipiZIDE No glipiZIDE ER 5 MG ER 5 MG ER 5 MG glipiZIDE glipiZIDE No 1{table QD glipiZIDE XL 5 MG XL 5 MG t_with_ XL 5 MG food} Metoprolol Metoprolol No 1{table QD Metoprolol Succinate Succinate t} Succinate ER 100 MG ER 100 MG ER 100 MG Vitamin D Vitamin D No 1{table QD Vitamin D 2000 UNIT 2000 UNIT t} 2000 UNIT Ozempic (1 Ozempic (1 No Ozempic (1 MG/DOSE) 4 MG/DOSE) 4 MG/DOSE) 4 MG/3ML MG/3ML MG/3ML Ozempic 1 Ozempic 1 No Ozempic 1 MG/DOSE MG/DOSE MG/DOSE Vitamin C Vitamin C No 1{table QD Vitamin C 1000 MG 1000 MG t} 1000 MG No 1{table QD Vitamins - Vitamins - t} Vitamins - Aspir-Low Aspir-Low No 1{table QD Aspir-Low 81 MG 81 MG t} 81 MG Simvastatin Simvastatin No Simvastati 40 MG 40 MG n 40 MG Metoprolol Metoprolol No 1{table QD Metoprolol Succinate Succinate t} Succinate ER 100 MG ER 100 MG ER 100 MG Metoprolol Metoprolol No Metoprolol Succinate Succinate Succinate ER 100 MG ER 100 MG ER 100 MG Clopidogrel Clopidogrel No Clopidogre Bisulfate Bisulfate l 75 MG 75 MG Bisulfate 75 MG Fish Oil Fish Oil No 1{capsu QD Fish Oil 1200 MG 1200 MG le} 1200 MG Metformin Metformin No 1{table BID Metformin HCl 1000 MG HCl 1000 MG t_with_ HCl 1000 meals} MG Atomoxetine Atomoxetine No Atomoxetin HCl 100 MG HCl 100 MG e HCl 100 MG Ozempic (1 Ozempic (1 No Ozempic (1 MG/DOSE) 2 MG/DOSE) 2 MG/DOSE) 2 MG/1.5ML MG/1.5ML MG/1.5ML Ozempic (1 Ozempic (1 No Ozempic (1 MG/DOSE) 4 MG/DOSE) 4 MG/DOSE) 4 MG/3ML MG/3ML MG/3ML Atorvastati Atorvastati No Atorvastat n Calcium n Calcium in Calcium 20 MG 20 MG 20 MG glipiZIDE glipiZIDE No 1{table QD glipiZIDE XL 5 MG XL 5 MG t_with_ XL 5 MG food} Metformin Metformin No 1{table BID Metformin HCl 1000 MG HCl 1000 MG t_with_ HCl 1000 meals} MG Vitamin D Vitamin D No 1{table QD Vitamin D 2000 UNIT 2000 UNIT t} 2000 UNIT Irbesartan Irbesartan No Irbesartan 150 MG 150 MG 150 MG Ozempic 1 Ozempic 1 No Ozempic 1 MG/DOSE MG/DOSE MG/DOSE Fish Oil Fish Oil No 1{capsu QD Fish Oil 1200 MG 1200 MG le} 1200 MG No 1{table QD Vitamins - Vitamins - t} Vitamins - Metoprolol Metoprolol No 1{table QD Metoprolol Succinate Succinate t} Succinate ER 100 MG ER 100 MG ER 100 MG metFORMIN metFORMIN No metFORMIN HCl ER 750 HCl ER 750 HCl ER 750 MG MG MG Aspir-Low Aspir-Low No 1{table QD Aspir-Low 81 MG 81 MG t} 81 MG Magnesium Magnesium No 1{table QD Magnesium 500 MG 500 MG t_with_ 500 MG a_meal} Lyrica 75 Lyrica 75 No 1{capsu BID Lyrica 75 MG MG le} MG Atomoxetine Atomoxetine No Atomoxetin HCl 100 MG HCl 100 MG e HCl 100 MG Vitamin C Vitamin C No 1{table QD Vitamin C 1000 MG 1000 MG t} 1000 MG Simvastatin Simvastatin No Simvastati 40 MG 40 MG n 40 MG glipiZIDE glipiZIDE No glipiZIDE ER 5 MG ER 5 MG ER 5 MG Metoprolol Metoprolol No 1{table QD Metoprolol Succinate Succinate t} Succinate ER 100 MG ER 100 MG ER 100 MG Clopidogrel Clopidogrel No Clopidogre Bisulfate Bisulfate l 75 MG 75 MG Bisulfate 75 MG Vitamin C Vitamin C No 1{table QD Vitamin C 1000 MG 1000 MG t} 1000 MG Ozempic (1 Ozempic (1 No Ozempic (1 MG/DOSE) 4 MG/DOSE) 4 MG/DOSE) 4 MG/3ML MG/3ML MG/3ML Metoprolol Metoprolol No 1{table QD Metoprolol Succinate Succinate t} Succinate ER 100 MG ER 100 MG ER 100 MG Turmeric Turmeric No Turmeric Atorvastati Atorvastati No Atorvastat n Calcium n Calcium in Calcium 20 MG 20 MG 20 MG Ozempic (1 Ozempic (1 No Ozempic (1 MG/DOSE) 2 MG/DOSE) 2 MG/DOSE) 2 MG/1.5ML MG/1.5ML MG/1.5ML Atomoxetine Atomoxetine No Atomoxetin HCl 100 MG HCl 100 MG e HCl 100 MG Metoprolol Metoprolol No 1{table QD Metoprolol Succinate Succinate t} Succinate ER 100 MG ER 100 MG ER 100 MG Aspir-Low Aspir-Low No 1{table QD Aspir-Low 81 MG 81 MG t} 81 MG Metformin Metformin No 1{table BID Metformin HCl 1000 MG HCl 1000 MG t_with_ HCl 1000 meals} MG Irbesartan Irbesartan No Irbesartan 150 MG 150 MG 150 MG Ozempic 1 Ozempic 1 No Ozempic 1 MG/DOSE MG/DOSE MG/DOSE Fish Oil Fish Oil No 1{capsu QD Fish Oil 1200 MG 1200 MG le} 1200 MG Vitamin C Vitamin C No 1{table QD Vitamin C 1000 MG 1000 MG t} 1000 MG metFORMIN metFORMIN No metFORMIN HCl ER 750 HCl ER 750 HCl ER 750 MG MG MG Probiotic Probiotic No Probiotic Aspir-Low Aspir-Low No 1{table QD Aspir-Low 81 MG 81 MG t} 81 MG Simvastatin Simvastatin No Simvastati 40 MG 40 MG n 40 MG Clopidogrel Clopidogrel No Clopidogre Bisulfate Bisulfate l 75 MG 75 MG Bisulfate 75 MG Vitamin D Vitamin D No 1{table QD Vitamin D 2000 UNIT 2000 UNIT t} 2000 UNIT glipiZIDE glipiZIDE No glipiZIDE ER 5 MG ER 5 MG ER 5 MG Clopidogrel Clopidogrel No Clopidogre Bisulfate Bisulfate l 75 MG 75 MG Bisulfate 75 MG Magnesium Magnesium No 1{table QD Magnesium 500 MG 500 MG t_with_ 500 MG a_meal} glipiZIDE glipiZIDE No 1{table QD glipiZIDE XL 5 MG XL 5 MG t_with_ XL 5 MG food} No 1{table QD Vitamins - Vitamins - t} Vitamins - Lyrica 75 Lyrica 75 No 1{capsu BID Lyrica 75 MG MG le} MG metFORMIN metFORMIN No metFORMIN HCl 1000 MG HCl 1000 MG HCl 1000 MG glipiZIDE glipiZIDE No 1{table QD glipiZIDE XL 5 MG XL 5 MG t_with_ XL 5 MG food} Ozempic (1 Ozempic (1 No Ozempic (1 MG/DOSE) 4 MG/DOSE) 4 MG/DOSE) 4 MG/3ML MG/3ML MG/3ML Metoprolol Metoprolol No 1{table QD Metoprolol Succinate Succinate t} Succinate ER 100 MG ER 100 MG ER 100 MG Turmeric Turmeric No Turmeric Atorvastati Atorvastati No Atorvastat n Calcium n Calcium in Calcium 20 MG 20 MG 20 MG Ozempic (1 Ozempic (1 No Ozempic (1 MG/DOSE) 2 MG/DOSE) 2 MG/DOSE) 2 MG/1.5ML MG/1.5ML MG/1.5ML Atomoxetine Atomoxetine No Atomoxetin HCl 100 MG HCl 100 MG e HCl 100 MG Metoprolol Metoprolol No 1{table QD Metoprolol Succinate Succinate t} Succinate ER 100 MG ER 100 MG ER 100 MG Metformin Metformin No 1{table BID Metformin HCl 1000 MG HCl 1000 MG t_with_ HCl 1000 meals} MG Irbesartan Irbesartan No Irbesartan 150 MG 150 MG 150 MG Ozempic 1 Ozempic 1 No Ozempic 1 MG/DOSE MG/DOSE MG/DOSE Atorvastati Atorvastati No 1{table QD Atorvastat n Calcium n Calcium t} in Calcium 20 MG 20 MG 20 MG Fish Oil Fish Oil No 1{capsu QD Fish Oil 1200 MG 1200 MG le} 1200 MG Vitamin C Vitamin C No 1{table QD Vitamin C 1000 MG 1000 MG t} 1000 MG metFORMIN metFORMIN No metFORMIN HCl ER 750 HCl ER 750 HCl ER 750 MG MG MG Probiotic Probiotic No Probiotic Aspir-Low Aspir-Low No 1{table QD Aspir-Low 81 MG 81 MG t} 81 MG Simvastatin Simvastatin No Simvastati 40 MG 40 MG n 40 MG Vitamin D Vitamin D No 1{table QD Vitamin D 2000 UNIT 2000 UNIT t} 2000 UNIT Ozempic Ozempic Yes Jhonny inject one C ommon Shaffer -1 mg Spirit subcutaneo - [facility] a week. [facility] Ozempic 1 Ozempic 1 No Ozempic 1 MG/DOSE MG/DOSE MG/DOSE glipiZIDE glipiZIDE No glipiZIDE ER 5 MG ER 5 MG ER 5 MG Clopidogrel Clopidogrel No Clopidogre Bisulfate Bisulfate l 75 MG 75 MG Bisulfate 75 MG Magnesium Magnesium No 1{table QD Magnesium 500 MG 500 MG t_with_ 500 MG a_meal} glipiZIDE glipiZIDE No 1{table QD glipiZIDE XL 5 MG XL 5 MG t_with_ XL 5 MG food} No 1{table QD Vitamins - Vitamins - t} Vitamins - Lyrica 75 Lyrica 75 No 1{capsu BID Lyrica 75 MG MG le} MG Irbesartan Irbesartan No 1{table QD Irbesartan 150 MG 150 MG t} 150 MG Ozempic (1 Ozempic (1 No Ozempic (1 MG/DOSE) 4 MG/DOSE) 4 MG/DOSE) 4 MG/3ML MG/3ML MG/3ML Atomoxetine Atomoxetine No Atomoxetin HCl 100 MG HCl 100 MG e HCl 100 MG Metoprolol Metoprolol No 1{table QD Metoprolol Succinate Succinate t} Succinate ER 100 MG ER 100 MG ER 100 MG glipiZIDE glipiZIDE No glipiZIDE ER 5 MG ER 5 MG ER 5 MG Ozempic (1 Ozempic (1 No Ozempic (1 MG/DOSE) 4 MG/DOSE) 4 MG/DOSE) 4 MG/3ML MG/3ML MG/3ML Irbesartan Irbesartan No Irbesartan 150 MG 150 MG 150 MG Ozempic 1 Ozempic 1 No Ozempic 1 MG/DOSE MG/DOSE MG/DOSE Atorvastati Atorvastati No Atorvastat n Calcium n Calcium in Calcium 20 MG 20 MG 20 MG Ozempic (1 Ozempic (1 No Ozempic (1 MG/DOSE) 2 MG/DOSE) 2 MG/DOSE) 2 MG/1.5ML MG/1.5ML MG/1.5ML Magnesium Magnesium No 1{table QD Magnesium 500 MG 500 MG t_with_ 500 MG a_meal} Metformin Metformin No 1{table BID Metformin HCl 1000 MG HCl 1000 MG t_with_ HCl 1000 meals} MG Fish Oil Fish Oil No 1{capsu QD Fish Oil 1200 MG 1200 MG le} 1200 MG Clopidogrel Clopidogrel No Clopidogre Bisulfate Bisulfate l 75 MG 75 MG Bisulfate 75 MG Vitamin C Vitamin C No 1{table QD Vitamin C 1000 MG 1000 MG t} 1000 MG metFORMIN metFORMIN No metFORMIN HCl ER 750 HCl ER 750 HCl ER 750 MG MG MG Vitamin D Vitamin D No 1{table QD Vitamin D 2000 UNIT 2000 UNIT t} 2000 UNIT Simvastatin Simvastatin No Simvastati 40 MG 40 MG n 40 MG Probiotic Probiotic No Probiotic metFORMIN metFORMIN No metFORMIN HCl ER 750 HCl ER 750 HCl ER 750 MG MG MG Turmeric Turmeric No Turmeric Metoprolol Metoprolol No 1{table QD Metoprolol Succinate Succinate t} Succinate ER 100 MG ER 100 MG ER 100 MG Aspir-Low Aspir-Low No 1{table QD Aspir-Low 81 MG 81 MG t} 81 MG Magnesium Magnesium No 1{table QD Magnesium 500 MG 500 MG t_with_ 500 MG a_meal} glipiZIDE glipiZIDE No 1{table QD glipiZIDE XL 5 MG XL 5 MG t_with_ XL 5 MG food} No 1{table QD Vitamins - Vitamins - t} Vitamins - Lyrica 75 Lyrica 75 No 1{capsu BID Lyrica 75 MG MG le} MG Ozempic (1 Ozempic (1 No Ozempic (1 MG/DOSE) 2 MG/DOSE) 2 MG/DOSE) 2 MG/1.5ML MG/1.5ML MG/1.5ML metFORMIN metFORMIN No metFORMIN HCl ER 750 HCl ER 750 HCl ER 750 MG MG MG Ozempic (1 Ozempic (1 No Ozempic (1 MG/DOSE) 2 MG/DOSE) 2 MG/DOSE) 2 MG/1.5ML MG/1.5ML MG/1.5ML Metoprolol Metoprolol No Metoprolol Succinate Succinate Succinate ER 100 MG ER 100 MG ER 100 MG Vitamin D Vitamin D No 1{table QD Vitamin D 2000 UNIT 2000 UNIT t} 2000 UNIT Ozempic (1 Ozempic (1 No Ozempic (1 MG/DOSE) 4 MG/DOSE) 4 MG/DOSE) 4 MG/3ML MG/3ML MG/3ML glipiZIDE glipiZIDE No glipiZIDE ER 5 MG ER 5 MG ER 5 MG Metformin Metformin No 1{table BID Metformin HCl 1000 MG HCl 1000 MG t_with_ HCl 1000 meals} MG Clopidogrel Clopidogrel No Clopidogre Bisulfate Bisulfate l 75 MG 75 MG Bisulfate 75 MG Ozempic 1 Ozempic 1 No Ozempic 1 MG/DOSE MG/DOSE MG/DOSE Probiotic Probiotic No Probiotic Aspir-Low Aspir-Low No 1{table QD Aspir-Low 81 MG 81 MG t} 81 MG Vitamin D Vitamin D No 1{table QD Vitamin D 2000 UNIT 2000 UNIT t} 2000 UNIT Vitamin C Vitamin C No 1{table QD Vitamin C 1000 MG 1000 MG t} 1000 MG Simvastatin Simvastatin No Simvastati 40 MG 40 MG n 40 MG Simvastatin Simvastatin No Simvastati 40 MG 40 MG n 40 MG Atorvastati Atorvastati No Atorvastat n Calcium n Calcium in Calcium 20 MG 20 MG 20 MG Atomoxetine Atomoxetine No Atomoxetin HCl 100 MG HCl 100 MG e HCl 100 MG Fish Oil Fish Oil No 1{capsu QD Fish Oil 1200 MG 1200 MG le} 1200 MG Turmeric Turmeric No Turmeric Irbesartan Irbesartan No Irbesartan 150 MG 150 MG 150 MG Magnesium Magnesium No 1{table QD Magnesium 500 MG 500 MG t_with_ 500 MG a_meal} glipiZIDE glipiZIDE No 1{table QD glipiZIDE XL 5 MG XL 5 MG t_with_ XL 5 MG food} Irbesartan Irbesartan No Irbesartan 150 MG 150 MG 150 MG No 1{table QD Vitamins - Vitamins - t} Vitamins - Lyrica 75 Lyrica 75 No 1{capsu BID Lyrica 75 MG MG le} MG metFORMIN metFORMIN No metFORMIN HCl ER 750 HCl ER 750 HCl ER 750 MG MG MG Ozempic (1 Ozempic (1 No Ozempic (1 MG/DOSE) 2 MG/DOSE) 2 MG/DOSE) 2 MG/1.5ML MG/1.5ML MG/1.5ML Metoprolol Metoprolol No Metoprolol Succinate Succinate Succinate ER 100 MG ER 100 MG ER 100 MG Ozempic (1 Ozempic (1 No Ozempic (1 MG/DOSE) 4 MG/DOSE) 4 MG/DOSE) 4 MG/3ML MG/3ML MG/3ML glipiZIDE glipiZIDE No glipiZIDE ER 5 MG ER 5 MG ER 5 MG Metformin Metformin No 1{table BID Metformin HCl 1000 MG HCl 1000 MG t_with_ HCl 1000 meals} MG Clopidogrel Clopidogrel No Clopidogre Bisulfate Bisulfate l 75 MG 75 MG Bisulfate 75 MG Ozempic 1 Ozempic 1 No Ozempic 1 MG/DOSE MG/DOSE MG/DOSE Probiotic Probiotic No Probiotic Aspir-Low Aspir-Low No 1{table QD Aspir-Low 81 MG 81 MG t} 81 MG Lyrica 75 Lyrica 75 No 1{capsu BID Lyrica 75 MG MG le} MG Vitamin D Vitamin D No 1{table QD Vitamin D 2000 UNIT 2000 UNIT t} 2000 UNIT Vitamin C Vitamin C No 1{table QD Vitamin C 1000 MG 1000 MG t} 1000 MG Simvastatin Simvastatin No Simvastati 40 MG 40 MG n 40 MG Atorvastati Atorvastati No Atorvastat n Calcium n Calcium in Calcium 20 MG 20 MG 20 MG Atomoxetine Atomoxetine No Atomoxetin HCl 100 MG HCl 100 MG e HCl 100 MG Fish Oil Fish Oil No 1{capsu QD Fish Oil 1200 MG 1200 MG le} 1200 MG Turmeric Turmeric No Turmeric Irbesartan Irbesartan No Irbesartan 150 MG 150 MG 150 MG No 1{table QD Vitamins - Vitamins - t} Vitamins - Magnesium Magnesium No 1{table QD Magnesium 500 MG 500 MG t_with_ 500 MG a_meal} glipiZIDE glipiZIDE No 1{table QD glipiZIDE XL 5 MG XL 5 MG t_with_ XL 5 MG food} No 1{table QD Vitamins - Vitamins - t} Vitamins - Lyrica 75 Lyrica 75 No 1{capsu BID Lyrica 75 MG MG le} MG Probiotic Probiotic No Probiotic Atorvastati Atorvastati No Atorvastat n Calcium n Calcium in Calcium 20 MG 20 MG 20 MG metFORMIN metFORMIN No metFORMIN HCl ER 750 HCl ER 750 HCl ER 750 MG MG MG Metoprolol Metoprolol No Metoprolol Succinate Succinate Succinate ER 100 MG ER 100 MG ER 100 MG Ozempic 1 Ozempic 1 No Ozempic 1 MG/DOSE MG/DOSE MG/DOSE Turmeric Turmeric No Turmeric Atorvastati Atorvastati No 1{table QD Atorvastat n Calcium n Calcium t} in Calcium 20 MG 20 MG 20 MG Irbesartan Irbesartan No Irbesartan 150 MG 150 MG 150 MG Metoprolol Metoprolol No 1{table QD Metoprolol Succinate Succinate t} Succinate ER 100 MG ER 100 MG ER 100 MG glipiZIDE glipiZIDE No 1{table QD glipiZIDE XL 5 MG XL 5 MG t_with_ XL 5 MG food} Irbesartan Irbesartan No 1{table QD Irbesartan 150 MG 150 MG t} 150 MG metFORMIN metFORMIN No metFORMIN HCl ER 750 HCl ER 750 HCl ER 750 MG MG MG No 1{table QD Vitamins - Vitamins - t} Vitamins - Ozempic (1 Ozempic (1 No Ozempic (1 MG/DOSE) 4 MG/DOSE) 4 MG/DOSE) 4 MG/3ML MG/3ML MG/3ML Vitamin C Vitamin C No 1{table QD Vitamin C 1000 MG 1000 MG t} 1000 MG Magnesium Magnesium No 1{table QD Magnesium 500 MG 500 MG t_with_ 500 MG a_meal} Vitamin D Vitamin D No 1{table QD Vitamin D 2000 UNIT 2000 UNIT t} 2000 UNIT Metformin Metformin No 1{table BID Metformin HCl 1000 MG HCl 1000 MG t_with_ HCl 1000 meals} MG Atomoxetine Atomoxetine No 1{capsu QD Atomoxetin HCl 100 MG HCl 100 MG le_in_t e HCl 100 he_morn MG ing} Clopidogrel Clopidogrel No Clopidogre Bisulfate Bisulfate l 75 MG 75 MG Bisulfate 75 MG Atomoxetine Atomoxetine No Atomoxetin HCl 100 MG HCl 100 MG e HCl 100 MG glipiZIDE glipiZIDE No glipiZIDE ER 5 MG ER 5 MG ER 5 MG Ozempic (1 Ozempic (1 No Ozempic (1 MG/DOSE) 2 MG/DOSE) 2 MG/DOSE) 2 MG/1.5ML MG/1.5ML MG/1.5ML Simvastatin Simvastatin No Simvastati 40 MG 40 MG n 40 MG Aspir-Low Aspir-Low No 1{table QD Aspir-Low 81 MG 81 MG t} 81 MG Fish Oil Fish Oil No 1{capsu QD Fish Oil 1200 MG 1200 MG le} 1200 MG Atomoxetine Atomoxetine No Atomoxetin HCl 100 MG HCl 100 MG e HCl 100 MG Vitamin C Vitamin C No 1{table QD Vitamin C 1000 MG 1000 MG t} 1000 MG Probiotic Probiotic No Probiotic metFORMIN metFORMIN No metFORMIN HCl ER 750 HCl ER 750 HCl ER 750 MG MG MG glipiZIDE glipiZIDE No 1{table QD glipiZIDE XL 5 MG XL 5 MG t_with_ XL 5 MG food} Atomoxetine Atomoxetine No 1{capsu QD Atomoxetin HCl 100 MG HCl 100 MG le_in_t e HCl 100 he_morn MG ing} Turmeric Turmeric No Turmeric Ozempic 1 Ozempic 1 No Ozempic 1 MG/DOSE MG/DOSE MG/DOSE No 1{table QD Vitamins - Vitamins - t} Vitamins - glipiZIDE glipiZIDE No glipiZIDE ER 5 MG ER 5 MG ER 5 MG Ozempic (1 Ozempic (1 No Ozempic (1 MG/DOSE) 4 MG/DOSE) 4 MG/DOSE) 4 MG/3ML MG/3ML MG/3ML Atorvastati Atorvastati No Atorvastat n Calcium n Calcium in Calcium 20 MG 20 MG 20 MG Metformin Metformin No 1{table BID Metformin HCl 1000 MG HCl 1000 MG t_with_ HCl 1000 meals} MG Metoprolol Metoprolol No Metoprolol Succinate Succinate Succinate ER 100 MG ER 100 MG ER 100 MG metFORMIN metFORMIN No metFORMIN HCl ER 750 HCl ER 750 HCl ER 750 MG MG MG Clopidogrel Clopidogrel No QD Clopidogre Bisulfate Bisulfate l 75 MG 75 MG Bisulfate 75 MG Irbesartan Irbesartan No Irbesartan 150 MG 150 MG 150 MG Vitamin D Vitamin D No 1{table QD Vitamin D 2000 UNIT 2000 UNIT t} 2000 UNIT Magnesium Magnesium No 1{table QD Magnesium 500 MG 500 MG t_with_ 500 MG a_meal} Ozempic (1 Ozempic (1 No Ozempic (1 MG/DOSE) 2 MG/DOSE) 2 MG/DOSE) 2 MG/1.5ML MG/1.5ML MG/1.5ML Simvastatin Simvastatin No Simvastati 40 MG 40 MG n 40 MG Aspir-Low Aspir-Low No 1{table QD Aspir-Low 81 MG 81 MG t} 81 MG Fish Oil Fish Oil No 1{capsu QD Fish Oil 1200 MG 1200 MG le} 1200 MG Probiotic Probiotic No Probiotic Mounjaro 10 Mounjaro 10 No Mounjaro MG/0.5ML MG/0.5ML 10 MG/0.5ML metFORMIN metFORMIN No metFORMIN HCl ER 750 HCl ER 750 HCl ER 750 MG MG MG Turmeric Turmeric No Turmeric glipiZIDE glipiZIDE No 1{table QD glipiZIDE XL 5 MG XL 5 MG t_with_ XL 5 MG food} Ozempic 1 Ozempic 1 No Ozempic 1 MG/DOSE MG/DOSE MG/DOSE Metformin Metformin No 1{table BID Metformin HCl 1000 MG HCl 1000 MG t_with_ HCl 1000 meals} MG Atomoxetine Atomoxetine No 1{capsu QD Atomoxetin HCl 100 MG HCl 100 MG le_in_t e HCl 100 he_morn MG ing} metFORMIN metFORMIN No metFORMIN HCl ER 750 HCl ER 750 HCl ER 750 MG MG MG No 1{table QD Vitamins - Vitamins - t} Vitamins - Simvastatin Simvastatin No Simvastati 40 MG 40 MG n 40 MG Vitamin C Vitamin C No 1{table QD Vitamin C 1000 MG 1000 MG t} 1000 MG Metoprolol Metoprolol No Metoprolol Succinate Succinate Succinate ER 100 MG ER 100 MG ER 100 MG Ozempic (1 Ozempic (1 No Ozempic (1 MG/DOSE) 4 MG/DOSE) 4 MG/DOSE) 4 MG/3ML MG/3ML MG/3ML Vitamin D Vitamin D No 1{table QD Vitamin D 2000 UNIT 2000 UNIT t} 2000 UNIT Clopidogrel Clopidogrel No QD Clopidogre Bisulfate Bisulfate l 75 MG 75 MG Bisulfate 75 MG glipiZIDE glipiZIDE No glipiZIDE ER 5 MG ER 5 MG ER 5 MG Ozempic (1 Ozempic (1 No Ozempic (1 MG/DOSE) 2 MG/DOSE) 2 MG/DOSE) 2 MG/1.5ML MG/1.5ML MG/1.5ML Atomoxetine Atomoxetine No Atomoxetin HCl 100 MG HCl 100 MG e HCl 100 MG Magnesium Magnesium No 1{table QD Magnesium 500 MG 500 MG t_with_ 500 MG a_meal} Aspir-Low Aspir-Low No 1{table QD Aspir-Low 81 MG 81 MG t} 81 MG Atorvastati Atorvastati No Atorvastat n Calcium n Calcium in Calcium 20 MG 20 MG 20 MG Fish Oil Fish Oil No 1{capsu QD Fish Oil 1200 MG 1200 MG le} 1200 MG Irbesartan Irbesartan No Irbesartan 150 MG 150 MG 150 MG Mounjaro 10 Mounjaro 10 No Mounjaro MG/0.5ML MG/0.5ML 10 MG/0.5ML Atomoxetine Atomoxetine No Atomoxetin HCl 100 MG HCl 100 MG e HCl 100 MG glipiZIDE glipiZIDE No glipiZIDE ER 5 MG ER 5 MG ER 5 MG Turmeric Turmeric No Turmeric glipiZIDE glipiZIDE No 1{table QD glipiZIDE XL 5 MG XL 5 MG t_with_ XL 5 MG food} Probiotic Probiotic No Probiotic Fish Oil Fish Oil No 1{capsu QD Fish Oil 1200 MG 1200 MG le} 1200 MG Ozempic 1 Ozempic 1 No Ozempic 1 MG/DOSE MG/DOSE MG/DOSE metFORMIN metFORMIN No metFORMIN HCl ER 750 HCl ER 750 HCl ER 750 MG MG MG Atomoxetine Atomoxetine No 1{capsu QD Atomoxetin HCl 100 MG HCl 100 MG le_in_t e HCl 100 he_morn MG ing} No 1{table QD Vitamins - Vitamins - t} Vitamins - Magnesium Magnesium No 1{table QD Magnesium 500 MG 500 MG t_with_ 500 MG a_meal} Simvastatin Simvastatin No Simvastati 40 MG 40 MG n 40 MG Vitamin D Vitamin D No 1{table QD Vitamin D 2000 UNIT 2000 UNIT t} 2000 UNIT Clopidogrel Clopidogrel No QD Clopidogre Bisulfate Bisulfate l 75 MG 75 MG Bisulfate 75 MG Atorvastati Atorvastati No 1{table QD Atorvastat n Calcium n Calcium t} in Calcium 20 MG 20 MG 20 MG Ozempic (1 Ozempic (1 No Ozempic (1 MG/DOSE) 4 MG/DOSE) 4 MG/DOSE) 4 MG/3ML MG/3ML MG/3ML metFORMIN metFORMIN No metFORMIN HCl ER 750 HCl ER 750 HCl ER 750 MG MG MG Metformin Metformin No 1{table BID Metformin HCl 1000 MG HCl 1000 MG t_with_ HCl 1000 meals} MG Metoprolol Metoprolol No Metoprolol Succinate Succinate Succinate ER 100 MG ER 100 MG ER 100 MG Ozempic (1 Ozempic (1 No Ozempic (1 MG/DOSE) 2 MG/DOSE) 2 MG/DOSE) 2 MG/1.5ML MG/1.5ML MG/1.5ML Vitamin C Vitamin C No 1{table QD Vitamin C 1000 MG 1000 MG t} 1000 MG Aspir-Low Aspir-Low No 1{table QD Aspir-Low 81 MG 81 MG t} 81 MG Atorvastati Atorvastati No Atorvastat n Calcium n Calcium in Calcium 20 MG 20 MG 20 MG Metformin Metformin No 1{table BID Metformin HCl 1000 MG HCl 1000 MG t_with_ HCl 1000 meals} MG Fish Oil Fish Oil No 1{capsu QD Fish Oil 1200 MG 1200 MG le} 1200 MG Irbesartan Irbesartan No Irbesartan 150 MG 150 MG 150 MG Mounjaro 10 Mounjaro 10 No Mounjaro MG/0.5ML MG/0.5ML 10 MG/0.5ML glipiZIDE glipiZIDE No 1{table QD glipiZIDE XL 5 MG XL 5 MG t_with_ XL 5 MG food} Atomoxetine Atomoxetine No Atomoxetin HCl 100 MG HCl 100 MG e HCl 100 MG glipiZIDE glipiZIDE No glipiZIDE ER 5 MG ER 5 MG ER 5 MG Turmeric Turmeric No Turmeric glipiZIDE glipiZIDE No 1{table QD glipiZIDE XL 5 MG XL 5 MG t_with_ XL 5 MG food} Probiotic Probiotic No Probiotic Ozempic 1 Ozempic 1 No Ozempic 1 MG/DOSE MG/DOSE MG/DOSE metFORMIN metFORMIN No metFORMIN HCl ER 750 HCl ER 750 HCl ER 750 MG MG MG Atomoxetine Atomoxetine No 1{capsu QD Atomoxetin HCl 100 MG HCl 100 MG le_in_t e HCl 100 he_morn MG ing} No 1{table QD Vitamins - Vitamins - t} Vitamins - Magnesium Magnesium No 1{table QD Magnesium 500 MG 500 MG t_with_ 500 MG a_meal} Simvastatin Simvastatin No Simvastati 40 MG 40 MG n 40 MG Vitamin D Vitamin D No 1{table QD Vitamin D 2000 UNIT 2000 UNIT t} 2000 UNIT Clopidogrel Clopidogrel No QD Clopidogre Bisulfate Bisulfate l 75 MG 75 MG Bisulfate 75 MG Ozempic (1 Ozempic (1 No Ozempic (1 MG/DOSE) 4 MG/DOSE) 4 MG/DOSE) 4 MG/3ML MG/3ML MG/3ML metFORMIN metFORMIN No metFORMIN HCl ER 750 HCl ER 750 HCl ER 750 MG MG MG Metformin Metformin No 1{table BID Metformin HCl 1000 MG HCl 1000 MG t_with_ HCl 1000 meals} MG Metoprolol Metoprolol No Metoprolol Succinate Succinate Succinate ER 100 MG ER 100 MG ER 100 MG Aspir-Low Aspir-Low No 1{table QD Aspir-Low 81 MG 81 MG t} 81 MG Ozempic (1 Ozempic (1 No Ozempic (1 MG/DOSE) 2 MG/DOSE) 2 MG/DOSE) 2 MG/1.5ML MG/1.5ML MG/1.5ML Vitamin C Vitamin C No 1{table QD Vitamin C 1000 MG 1000 MG t} 1000 MG Aspir-Low Aspir-Low No 1{table QD Aspir-Low 81 MG 81 MG t} 81 MG Atorvastati Atorvastati No Atorvastat n Calcium n Calcium in Calcium 20 MG 20 MG 20 MG Fish Oil Fish Oil No 1{capsu QD Fish Oil 1200 MG 1200 MG le} 1200 MG Irbesartan Irbesartan No Irbesartan 150 MG 150 MG 150 MG Ozempic (1 Ozempic (1 No Ozempic (1 MG/DOSE) 2 MG/DOSE) 2 MG/DOSE) 2 MG/1.5ML MG/1.5ML MG/1.5ML Vitamin C Vitamin C No 1{table QD Vitamin C 1000 MG 1000 MG t} 1000 MG Atomoxetine Atomoxetine No 1{capsu QD Atomoxetin HCl 100 MG HCl 100 MG le_in_t e HCl 100 he_morn MG ing} Ozempic (1 Ozempic (1 No Ozempic (1 MG/DOSE) 4 MG/DOSE) 4 MG/DOSE) 4 MG/3ML MG/3ML MG/3ML No 1{table QD Vitamins - Vitamins - t} Vitamins - Vitamin D Vitamin D No 1{table QD Vitamin D 2000 UNIT 2000 UNIT t} 2000 UNIT Irbesartan Irbesartan No Irbesartan 150 MG 150 MG 150 MG Clopidogrel Clopidogrel No Clopidogre Bisulfate Bisulfate l 75 MG 75 MG Bisulfate 75 MG Metoprolol Metoprolol No 1{table QD Metoprolol Succinate Succinate t} Succinate ER 100 MG ER 100 MG ER 100 MG Lyrica 75 Lyrica 75 No 1{capsu BID Lyrica 75 MG MG le} MG Simvastatin Simvastatin No Simvastati 40 MG 40 MG n 40 MG metFORMIN metFORMIN No 1{table BID metFORMIN HCl ER 750 HCl ER 750 t} HCl ER 750 MG MG MG Ozempic 1 Ozempic 1 No Ozempic 1 MG/DOSE MG/DOSE MG/DOSE Irbesartan Irbesartan No 1{table QD Irbesartan 150 MG 150 MG t} 150 MG Magnesium Magnesium No 1{table QD Magnesium 500 MG 500 MG t_with_ 500 MG a_meal} metFORMIN metFORMIN No metFORMIN HCl 1000 MG HCl 1000 MG HCl 1000 MG Metformin Metformin No 1{table BID Metformin HCl 1000 MG HCl 1000 MG t_with_ HCl 1000 meals} MG Atorvastati Atorvastati No 1{table QD Atorvastat n Calcium n Calcium t} in Calcium 20 MG 20 MG 20 MG metFORMIN metFORMIN No metFORMIN HCl 1000 MG HCl 1000 MG HCl 1000 MG glipiZIDE glipiZIDE No 1{table QD glipiZIDE XL 5 MG XL 5 MG t_with_ XL 5 MG food} Ozempic (1 Ozempic (1 No Ozempic (1 MG/DOSE) 2 MG/DOSE) 2 MG/DOSE) 2 MG/1.5ML MG/1.5ML MG/1.5ML Simvastatin Simvastatin No Simvastati 40 MG 40 MG n 40 MG Fish Oil Fish Oil No 1{capsu QD Fish Oil 1200 MG 1200 MG le} 1200 MG Ozempic (1 Ozempic (1 No Ozempic (1 MG/DOSE) 4 MG/DOSE) 4 MG/DOSE) 4 MG/3ML MG/3ML MG/3ML metFORMIN metFORMIN No metFORMIN HCl ER 750 HCl ER 750 HCl ER 750 MG MG MG No 1{table QD Vitamins - Vitamins - t} Vitamins - Irbesartan Irbesartan No Irbesartan 150 MG 150 MG 150 MG Aspir-Low Aspir-Low No 1{table QD Aspir-Low 81 MG 81 MG t} 81 MG Vitamin C Vitamin C No 1{table QD Vitamin C 1000 MG 1000 MG t} 1000 MG Lyrica 75 Lyrica 75 No 1{capsu BID Lyrica 75 MG MG le} MG Magnesium Magnesium No 1{table QD Magnesium 500 MG 500 MG t_with_ 500 MG a_meal} Vitamin D Vitamin D No 1{table QD Vitamin D 1999 UNIT 2000 UNIT t} 2000 UNIT Atomoxetine Atomoxetine No 1{capsu QD Atomoxetin HCl 100 MG HCl 100 MG le_in_t e HCl 100 he_morn MG ing} Ozempic 1 Ozempic 1 No Ozempic 1 MG/DOSE MG/DOSE MG/DOSE Irbesartan Irbesartan No 1{table QD Irbesartan 150 MG 150 MG t} 150 MG Clopidogrel Clopidogrel No Clopidogre Bisulfate Bisulfate l 75 MG 75 MG Bisulfate 75 MG Metoprolol Metoprolol No 1{table QD Metoprolol Succinate Succinate t} Succinate ER 100 MG ER 100 MG ER 100 MG Ozempic (1 Ozempic (1 No MG/DOSE) 2 MG/DOSE) 2 MG/1.5ML MG/1.5ML Atorvastati Atorvastati No 1{table QD n Calcium n Calcium t} 20 MG 20 MG Metoprolol Metoprolol No Succinate Succinate ER 100 MG ER 100 MG Aspir-Low Aspir-Low No 1{table QD 81 MG 81 MG t} Atomoxetine Atomoxetine No HCl 100 MG HCl 100 MG Vitamin C Vitamin C No 1{table QD 1000 MG 1000 MG t} Lyrica 75 Lyrica 75 No 1{capsu BID MG MG le} metFORMIN metFORMIN No HCl ER 750 HCl ER 750 MG MG No 1{table QD Vitamins - Vitamins - t} Vitamin D Vitamin D No 1{table QD 2000 UNIT 2000 UNIT t} Clopidogrel Clopidogrel No Bisulfate Bisulfate 75 MG 75 MG Metformin Metformin No 1{table BID HCl 1000 MG HCl 1000 MG t_with_ meals} glipiZIDE glipiZIDE No 1{table QD XL 5 MG XL 5 MG t_with_ food} Simvastatin Simvastatin No 40 MG 40 MG metFORMIN metFORMIN No HCl 1000 MG HCl 1000 MG Ozempic 1 Ozempic 1 No MG/DOSE MG/DOSE Ozempic (1 Ozempic (1 No MG/DOSE) 4 MG/DOSE) 4 MG/3ML MG/3ML Irbesartan Irbesartan No 150 MG 150 MG Magnesium Magnesium No 1{table QD 500 MG 500 MG t_with_ a_meal} Fish Oil Fish Oil No 1{capsu QD 1200 MG 1200 MG le} Atomoxetine Atomoxetine No Atomoxetin HCl 100 MG HCl 100 MG e HCl 100 MG Ozempic 1 Ozempic 1 No Ozempic 1 MG/DOSE MG/DOSE MG/DOSE Vitamin D Vitamin D No 1{table QD Vitamin D 2000 UNIT 2000 UNIT t} 2000 UNIT Irbesartan Irbesartan No Irbesartan 150 MG 150 MG 150 MG Clopidogrel Clopidogrel No Clopidogre Bisulfate Bisulfate l 75 MG 75 MG Bisulfate 75 MG glipiZIDE glipiZIDE No 1{table QD glipiZIDE XL 5 MG XL 5 MG t_with_ XL 5 MG food} Vitamin C Vitamin C No 1{table QD Vitamin C 1000 MG 1000 MG t} 1000 MG Metoprolol Metoprolol No Metoprolol Succinate Succinate Succinate ER 100 MG ER 100 MG ER 100 MG metFORMIN metFORMIN No metFORMIN HCl 1000 MG HCl 1000 MG HCl 1000 MG Magnesium Magnesium No 1{table QD Magnesium 500 MG 500 MG t_with_ 500 MG a_meal} Fish Oil Fish Oil No 1{capsu QD Fish Oil 1200 MG 1200 MG le} 1200 MG metFORMIN metFORMIN No metFORMIN HCl ER 750 HCl ER 750 HCl ER 750 MG MG MG Aspir-Low Aspir-Low No 1{table QD Aspir-Low 81 MG 81 MG t} 81 MG Metformin Metformin No 1{table BID Metformin HCl 1000 MG HCl 1000 MG t_with_ HCl 1000 meals} MG Ozempic (1 Ozempic (1 No Ozempic (1 MG/DOSE) 4 MG/DOSE) 4 MG/DOSE) 4 MG/3ML MG/3ML MG/3ML Atorvastati Atorvastati No 1{table QD Atorvastat n Calcium n Calcium t} in Calcium 20 MG 20 MG 20 MG No 1{table QD Vitamins - Vitamins - t} Vitamins - Simvastatin Simvastatin No Simvastati 40 MG 40 MG n 40 MG Ozempic (1 Ozempic (1 No Ozempic (1 MG/DOSE) 2 MG/DOSE) 2 MG/DOSE) 2 MG/1.5ML MG/1.5ML MG/1.5ML Ozempic (1 Ozempic (1 No Ozempic (1 MG/DOSE) 2 MG/DOSE) 2 MG/DOSE) 2 MG/1.5ML MG/1.5ML MG/1.5ML Ozempic 1 Ozempic 1 No Ozempic 1 MG/DOSE MG/DOSE MG/DOSE Aspir-Low Aspir-Low No 1{table QD Aspir-Low 81 MG 81 MG t} 81 MG Irbesartan Irbesartan No Irbesartan 150 MG 150 MG 150 MG glipiZIDE glipiZIDE No 1{table QD glipiZIDE XL 5 MG XL 5 MG t_with_ XL 5 MG food} Metoprolol Metoprolol No Metoprolol Succinate Succinate Succinate ER 100 MG ER 100 MG ER 100 MG Simvastatin Simvastatin No Simvastati 40 MG 40 MG n 40 MG No 1{table QD Vitamins - Vitamins - t} Vitamins - Vitamin D Vitamin D No 1{table QD Vitamin D 2000 UNIT 2000 UNIT t} 2000 UNIT Vitamin C Vitamin C No 1{table QD Vitamin C 1000 MG 1000 MG t} 1000 MG Metformin Metformin No 1{table BID Metformin HCl 1000 MG HCl 1000 MG t_with_ HCl 1000 meals} MG metFORMIN metFORMIN No metFORMIN HCl ER 750 HCl ER 750 HCl ER 750 MG MG MG Magnesium Magnesium No 1{table QD Magnesium 500 MG 500 MG t_with_ 500 MG a_meal} metFORMIN metFORMIN No metFORMIN HCl 1000 MG HCl 1000 MG HCl 1000 MG Ozempic (1 Ozempic (1 No Ozempic (1 MG/DOSE) 4 MG/DOSE) 4 MG/DOSE) 4 MG/3ML MG/3ML MG/3ML Atorvastati Atorvastati No 1{table QD Atorvastat n Calcium n Calcium t} in Calcium 20 MG 20 MG 20 MG Atomoxetine Atomoxetine No Atomoxetin HCl 100 MG HCl 100 MG e HCl 100 MG Clopidogrel Clopidogrel No Clopidogre Bisulfate Bisulfate l 75 MG 75 MG Bisulfate 75 MG Fish Oil Fish Oil No 1{capsu QD Fish Oil 1200 MG 1200 MG le} 1200 MG Atorvastati Atorvastati No 1{table QD Atorvastat n Calcium n Calcium t} in Calcium 20 MG 20 MG 20 MG Atomoxetine Atomoxetine No Atomoxetin HCl 100 MG HCl 100 MG e HCl 100 MG Simvastatin Simvastatin No Simvastati 40 MG 40 MG n 40 MG Metoprolol Metoprolol No 1{table QD Metoprolol Succinate Succinate t} Succinate ER 100 MG ER 100 MG ER 100 MG Metoprolol Metoprolol No Metoprolol Succinate Succinate Succinate ER 100 MG ER 100 MG ER 100 MG glipiZIDE glipiZIDE No 1{table QD glipiZIDE XL 5 MG XL 5 MG t_with_ XL 5 MG food} Irbesartan Irbesartan No Irbesartan 150 MG 150 MG 150 MG metFORMIN metFORMIN No metFORMIN HCl ER 750 HCl ER 750 HCl ER 750 MG MG MG Irbesartan Irbesartan No 1{table QD Irbesartan 150 MG 150 MG t} 150 MG glipiZIDE glipiZIDE No glipiZIDE ER 5 MG ER 5 MG ER 5 MG Ozempic 1 Ozempic 1 No Ozempic 1 MG/DOSE MG/DOSE MG/DOSE Ozempic (1 Ozempic (1 No Ozempic (1 MG/DOSE) 2 MG/DOSE) 2 MG/DOSE) 2 MG/1.5ML MG/1.5ML MG/1.5ML Magnesium Magnesium No 1{table QD Magnesium 500 MG 500 MG t_with_ 500 MG a_meal} Clopidogrel Clopidogrel No Clopidogre Bisulfate Bisulfate l 75 MG 75 MG Bisulfate 75 MG Vitamin D Vitamin D No 1{table QD Vitamin D 2000 UNIT 2000 UNIT t} 2000 UNIT Ozempic (1 Ozempic (1 No Ozempic (1 MG/DOSE) 4 MG/DOSE) 4 MG/DOSE) 4 MG/3ML MG/3ML MG/3ML Atomoxetine Atomoxetine No 1{capsu QD Atomoxetin HCl 100 MG HCl 100 MG le_in_t e HCl 100 he_morn MG ing} No 1{table QD Vitamins - Vitamins - t} Vitamins - Vitamin C Vitamin C No 1{table QD Vitamin C 1000 MG 1000 MG t} 1000 MG Metformin Metformin No 1{table BID Metformin HCl 1000 MG HCl 1000 MG t_with_ HCl 1000 meals} MG metFORMIN metFORMIN No metFORMIN HCl 1000 MG HCl 1000 MG HCl 1000 MG Aspir-Low Aspir-Low No 1{table QD Aspir-Low 81 MG 81 MG t} 81 MG Fish Oil Fish Oil No 1{capsu QD Fish Oil 1200 MG 1200 MG le} 1200 MG Simvastatin Simvastatin No Simvastati 40 MG 40 MG n 40 MG Atorvastati Atorvastati No 1{table QD Atorvastat n Calcium n Calcium t} in Calcium 20 MG 20 MG 20 MG metFORMIN metFORMIN No metFORMIN HCl ER 750 HCl ER 750 HCl ER 750 MG MG MG Atomoxetine Atomoxetine No Atomoxetin HCl 100 MG HCl 100 MG e HCl 100 MG glipiZIDE glipiZIDE No glipiZIDE ER 5 MG ER 5 MG ER 5 MG glipiZIDE glipiZIDE No 1{table QD glipiZIDE XL 5 MG XL 5 MG t_with_ XL 5 MG food} Vitamin C Vitamin C No 1{table QD Vitamin C 1000 MG 1000 MG t} 1000 MG Vitamin D Vitamin D No 1{table QD Vitamin D 2000 UNIT 2000 UNIT t} 2000 UNIT Ozempic 1 Ozempic 1 No Ozempic 1 MG/DOSE MG/DOSE MG/DOSE Clopidogrel Clopidogrel No Clopidogre Bisulfate Bisulfate l 75 MG 75 MG Bisulfate 75 MG Magnesium Magnesium No 1{table QD Magnesium 500 MG 500 MG t_with_ 500 MG a_meal} Ozempic (1 Ozempic (1 No Ozempic (1 MG/DOSE) 2 MG/DOSE) 2 MG/DOSE) 2 MG/1.5ML MG/1.5ML MG/1.5ML Atomoxetine Atomoxetine No 1{capsu QD Atomoxetin HCl 100 MG HCl 100 MG le_in_t e HCl 100 he_morn MG ing} Metformin Metformin No 1{table BID Metformin HCl 1000 MG HCl 1000 MG t_with_ HCl 1000 meals} MG Ozempic (1 Ozempic (1 No Ozempic (1 MG/DOSE) 4 MG/DOSE) 4 MG/DOSE) 4 MG/3ML MG/3ML MG/3ML No 1{table QD Vitamins - Vitamins - t} Vitamins - Metoprolol Metoprolol No Metoprolol Succinate Succinate Succinate ER 100 MG ER 100 MG ER 100 MG Aspir-Low Aspir-Low No 1{table QD Aspir-Low 81 MG 81 MG t} 81 MG metFORMIN metFORMIN No metFORMIN HCl 1000 MG HCl 1000 MG HCl 1000 MG Irbesartan Irbesartan No Irbesartan 150 MG 150 MG 150 MG Fish Oil Fish Oil No 1{capsu QD Fish Oil 1200 MG 1200 MG le} 1200 MG Simvastatin Simvastatin No Simvastati 40 MG 40 MG n 40 MG Atorvastati Atorvastati No 1{table QD Atorvastat n Calcium n Calcium t} in Calcium 20 MG 20 MG 20 MG glipiZIDE glipiZIDE No glipiZIDE ER 5 MG ER 5 MG ER 5 MG Atomoxetine Atomoxetine No Atomoxetin HCl 100 MG HCl 100 MG e HCl 100 MG glipiZIDE glipiZIDE No 1{table QD glipiZIDE XL 5 MG XL 5 MG t_with_ XL 5 MG food} Vitamin C Vitamin C No 1{table QD Vitamin C 1000 MG 1000 MG t} 1000 MG Vitamin D Vitamin D No 1{table QD Vitamin D 2000 UNIT 2000 UNIT t} 2000 UNIT Ozempic 1 Ozempic 1 No Ozempic 1 MG/DOSE MG/DOSE MG/DOSE metFORMIN metFORMIN No metFORMIN HCl ER 750 HCl ER 750 HCl ER 750 MG MG MG Magnesium Magnesium No 1{table QD Magnesium 500 MG 500 MG t_with_ 500 MG a_meal} Ozempic (1 Ozempic (1 No Ozempic (1 MG/DOSE) 2 MG/DOSE) 2 MG/DOSE) 2 MG/1.5ML MG/1.5ML MG/1.5ML Atomoxetine Atomoxetine No 1{capsu QD Atomoxetin HCl 100 MG HCl 100 MG le_in_t e HCl 100 he_morn MG ing} Clopidogrel Clopidogrel No Clopidogre Bisulfate Bisulfate l 75 MG 75 MG Bisulfate 75 MG Metformin Metformin No 1{table BID Metformin HCl 1000 MG HCl 1000 MG t_with_ HCl 1000 meals} MG Ozempic (1 Ozempic (1 No Ozempic (1 MG/DOSE) 4 MG/DOSE) 4 MG/DOSE) 4 MG/3ML MG/3ML MG/3ML No 1{table QD Vitamins - Vitamins - t} Vitamins - Metoprolol Metoprolol No Metoprolol Succinate Succinate Succinate ER 100 MG ER 100 MG ER 100 MG Aspir-Low Aspir-Low No 1{table QD Aspir-Low 81 MG 81 MG t} 81 MG metFORMIN metFORMIN No metFORMIN HCl 1000 MG HCl 1000 MG HCl 1000 MG Irbesartan Irbesartan No Irbesartan 150 MG 150 MG 150 MG Fish Oil Fish Oil No 1{capsu QD Fish Oil 1200 MG 1200 MG le} 1200 MG Simvastatin Simvastatin No Simvastati 40 MG 40 MG n 40 MG Atorvastati Atorvastati No 1{table QD Atorvastat n Calcium n Calcium t} in Calcium 20 MG 20 MG 20 MG glipiZIDE glipiZIDE No glipiZIDE ER 5 MG ER 5 MG ER 5 MG Atomoxetine Atomoxetine No Atomoxetin HCl 100 MG HCl 100 MG e HCl 100 MG glipiZIDE glipiZIDE No 1{table QD glipiZIDE XL 5 MG XL 5 MG t_with_ XL 5 MG food} Vitamin C Vitamin C No 1{table QD Vitamin C 1000 MG 1000 MG t} 1000 MG Vitamin D Vitamin D No 1{table QD Vitamin D 2000 UNIT 2000 UNIT t} 2000 UNIT Ozempic 1 Ozempic 1 No Ozempic 1 MG/DOSE MG/DOSE MG/DOSE metFORMIN metFORMIN No metFORMIN HCl ER 750 HCl ER 750 HCl ER 750 MG MG MG Magnesium Magnesium No 1{table QD Magnesium 500 MG 500 MG t_with_ 500 MG a_meal} Ozempic (1 Ozempic (1 No Ozempic (1 MG/DOSE) 2 MG/DOSE) 2 MG/DOSE) 2 MG/1.5ML MG/1.5ML MG/1.5ML Atomoxetine Atomoxetine No 1{capsu QD Atomoxetin HCl 100 MG HCl 100 MG le_in_t e HCl 100 he_morn MG ing} Clopidogrel Clopidogrel No Clopidogre Bisulfate Bisulfate l 75 MG 75 MG Bisulfate 75 MG Metformin Metformin No 1{table BID Metformin HCl 1000 MG HCl 1000 MG t_with_ HCl 1000 meals} MG Ozempic (1 Ozempic (1 No Ozempic (1 MG/DOSE) 4 MG/DOSE) 4 MG/DOSE) 4 MG/3ML MG/3ML MG/3ML No 1{table QD Vitamins - Vitamins - t} Vitamins - Metoprolol Metoprolol No Metoprolol Succinate Succinate Succinate ER 100 MG ER 100 MG ER 100 MG Aspir-Low Aspir-Low No 1{table QD Aspir-Low 81 MG 81 MG t} 81 MG metFORMIN metFORMIN No metFORMIN HCl 1000 MG HCl 1000 MG HCl 1000 MG Irbesartan Irbesartan No Irbesartan 150 MG 150 MG 150 MG Fish Oil Fish Oil No 1{capsu QD Fish Oil 1200 MG 1200 MG le} 1200 MG Simvastatin Simvastatin No Simvastati 40 MG 40 MG n 40 MG Ozempic 1 Ozempic 1 No Ozempic 1 MG/DOSE MG/DOSE MG/DOSE Atorvastati Atorvastati No 1{table QD Atorvastat n Calcium n Calcium t} in Calcium 20 MG 20 MG 20 MG Atomoxetine Atomoxetine No Atomoxetin HCl 100 MG HCl 100 MG e HCl 100 MG glipiZIDE glipiZIDE No 1{table QD glipiZIDE XL 5 MG XL 5 MG t_with_ XL 5 MG food} Vitamin C Vitamin C No 1{table QD Vitamin C 1000 MG 1000 MG t} 1000 MG Vitamin D Vitamin D No 1{table QD Vitamin D 2000 UNIT 2000 UNIT t} 2000 UNIT glipiZIDE glipiZIDE No glipiZIDE ER 5 MG ER 5 MG ER 5 MG metFORMIN metFORMIN No metFORMIN HCl ER 750 HCl ER 750 HCl ER 750 MG MG MG Magnesium Magnesium No 1{table QD Magnesium 500 MG 500 MG t_with_ 500 MG a_meal} Ozempic (1 Ozempic (1 No Ozempic (1 MG/DOSE) 4 MG/DOSE) 4 MG/DOSE) 4 MG/3ML MG/3ML MG/3ML Atomoxetine Atomoxetine No 1{capsu QD Atomoxetin HCl 100 MG HCl 100 MG le_in_t e HCl 100 he_morn MG ing} Clopidogrel Clopidogrel No Clopidogre Bisulfate Bisulfate l 75 MG 75 MG Bisulfate 75 MG Metformin Metformin No 1{table BID Metformin HCl 1000 MG HCl 1000 MG t_with_ HCl 1000 meals} MG Ozempic (1 Ozempic (1 No Ozempic (1 MG/DOSE) 2 MG/DOSE) 2 MG/DOSE) 2 MG/1.5ML MG/1.5ML MG/1.5ML No 1{table QD Vitamins - Vitamins - t} Vitamins - Metoprolol Metoprolol No Metoprolol Succinate Succinate Succinate ER 100 MG ER 100 MG ER 100 MG Aspir-Low Aspir-Low No 1{table QD Aspir-Low 81 MG 81 MG t} 81 MG metFORMIN metFORMIN No metFORMIN HCl 1000 MG HCl 1000 MG HCl 1000 MG Irbesartan Irbesartan No Irbesartan 150 MG 150 MG 150 MG Fish Oil Fish Oil No 1{capsu QD Fish Oil 1200 MG 1200 MG le} 1200 MG Vitamin C Vitamin C No 1{table QD Vitamin C 1000 MG 1000 MG t} 1000 MG metFORMIN metFORMIN No metFORMIN HCl ER 750 HCl ER 750 HCl ER 750 MG MG MG Atorvastati Atorvastati No Atorvastat n Calcium n Calcium in Calcium 20 MG 20 MG 20 MG Ozempic (1 Ozempic (1 No Ozempic (1 MG/DOSE) 2 MG/DOSE) 2 MG/DOSE) 2 MG/1.5ML MG/1.5ML MG/1.5ML Metformin Metformin No 1{table BID Metformin HCl 1000 MG HCl 1000 MG t_with_ HCl 1000 meals} MG Ozempic (1 Ozempic (1 No Ozempic (1 MG/DOSE) 4 MG/DOSE) 4 MG/DOSE) 4 MG/3ML MG/3ML MG/3ML Atomoxetine Atomoxetine No Atomoxetin HCl 100 MG HCl 100 MG e HCl 100 MG Irbesartan Irbesartan No Irbesartan 150 MG 150 MG 150 MG Aspir-Low Aspir-Low No 1{table QD Aspir-Low 81 MG 81 MG t} 81 MG metFORMIN metFORMIN No metFORMIN HCl 1000 MG HCl 1000 MG HCl 1000 MG Fish Oil Fish Oil No 1{capsu QD Fish Oil 1200 MG 1200 MG le} 1200 MG Simvastatin Simvastatin No Simvastati 40 MG 40 MG n 40 MG Clopidogrel Clopidogrel No Clopidogre Bisulfate Bisulfate l 75 MG 75 MG Bisulfate 75 MG No 1{table QD Vitamins - Vitamins - t} Vitamins - Metoprolol Metoprolol No Metoprolol Succinate Succinate Succinate ER 100 MG ER 100 MG ER 100 MG Magnesium Magnesium No 1{table QD Magnesium 500 MG 500 MG t_with_ 500 MG a_meal} glipiZIDE glipiZIDE No glipiZIDE ER 5 MG ER 5 MG ER 5 MG Ozempic 1 Ozempic 1 No Ozempic 1 MG/DOSE MG/DOSE MG/DOSE Vitamin D Vitamin D No 1{table QD Vitamin D 2000 UNIT 2000 UNIT t} 2000 UNIT Clopidogrel Clopidogrel No Clopidogre Bisulfate Bisulfate l 75 MG 75 MG Bisulfate 75 MG Fish Oil Fish Oil No 1{capsu QD Fish Oil 1200 MG 1200 MG le} 1200 MG Simvastatin Simvastatin No Simvastati 40 MG 40 MG n 40 MG Metformin Metformin No 1{table BID Metformin HCl 1000 MG HCl 1000 MG t_with_ HCl 1000 meals} MG glipiZIDE glipiZIDE No glipiZIDE ER 5 MG ER 5 MG ER 5 MG Ozempic (1 Ozempic (1 No Ozempic (1 MG/DOSE) 4 MG/DOSE) 4 MG/DOSE) 4 MG/3ML MG/3ML MG/3ML Metoprolol Metoprolol No Metoprolol Succinate Succinate Succinate ER 100 MG ER 100 MG ER 100 MG Ozempic (1 Ozempic (1 No Ozempic (1 MG/DOSE) 2 MG/DOSE) 2 MG/DOSE) 2 MG/1.5ML MG/1.5ML MG/1.5ML metFORMIN metFORMIN No metFORMIN HCl ER 750 HCl ER 750 HCl ER 750 MG MG MG Ozempic 1 Ozempic 1 No Ozempic 1 MG/DOSE MG/DOSE MG/DOSE Atorvastati Atorvastati No 1{table QD Atorvastat n Calcium n Calcium t} in Calcium 20 MG 20 MG 20 MG Metoprolol Metoprolol No 1{table QD Metoprolol Succinate Succinate t} Succinate ER 100 MG ER 100 MG ER 100 MG Irbesartan Irbesartan No Irbesartan 150 MG 150 MG 150 MG Atomoxetine Atomoxetine No 1{capsu QD Atomoxetin HCl 100 MG HCl 100 MG le_in_t e HCl 100 he_morn MG ing} Vitamin D Vitamin D No 1{table QD Vitamin D 2000 UNIT 2000 UNIT t} 2000 UNIT Atomoxetine Atomoxetine No Atomoxetin HCl 100 MG HCl 100 MG e HCl 100 MG Atorvastati Atorvastati No Atorvastat n Calcium n Calcium in Calcium 20 MG 20 MG 20 MG Magnesium Magnesium No 1{table QD Magnesium 500 MG 500 MG t_with_ 500 MG a_meal} Irbesartan Irbesartan No 1{table QD Irbesartan 150 MG 150 MG t} 150 MG Aspir-Low Aspir-Low No 1{table QD Aspir-Low 81 MG 81 MG t} 81 MG Vitamin C Vitamin C No 1{table QD Vitamin C 1000 MG 1000 MG t} 1000 MG Lyrica 75 Lyrica 75 No 1{capsu BID Lyrica 75 MG MG le} MG No 1{table QD Vitamins - Vitamins - t} Vitamins - glipiZIDE glipiZIDE No 1{table QD glipiZIDE XL 5 MG XL 5 MG t_with_ XL 5 MG food} Fish Oil Fish Oil No 1{capsu QD Fish Oil 1200 MG 1200 MG le} 1200 MG Irbesartan Irbesartan No 1{table QD Irbesartan 150 MG 150 MG t} 150 MG Simvastatin Simvastatin No Simvastati 40 MG 40 MG n 40 MG Metformin Metformin No 1{table BID Metformin HCl 1000 MG HCl 1000 MG t_with_ HCl 1000 meals} MG glipiZIDE glipiZIDE No glipiZIDE ER 5 MG ER 5 MG ER 5 MG Ozempic (1 Ozempic (1 No Ozempic (1 MG/DOSE) 4 MG/DOSE) 4 MG/DOSE) 4 MG/3ML MG/3ML MG/3ML Metoprolol Metoprolol No Metoprolol Succinate Succinate Succinate ER 100 MG ER 100 MG ER 100 MG Ozempic (1 Ozempic (1 No Ozempic (1 MG/DOSE) 2 MG/DOSE) 2 MG/DOSE) 2 MG/1.5ML MG/1.5ML MG/1.5ML Ozempic 1 Ozempic 1 No Ozempic 1 MG/DOSE MG/DOSE MG/DOSE Aspir-Low Aspir-Low No 1{table QD Aspir-Low 81 MG 81 MG t} 81 MG Vitamin C Vitamin C No 1{table QD Vitamin C 1000 MG 1000 MG t} 1000 MG Vitamin D Vitamin D No 1{table QD Vitamin D 2000 UNIT 2000 UNIT t} 2000 UNIT Irbesartan Irbesartan No Irbesartan 150 MG 150 MG 150 MG Magnesium Magnesium No 1{table QD Magnesium 500 MG 500 MG t_with_ 500 MG a_meal} metFORMIN metFORMIN No metFORMIN HCl ER 750 HCl ER 750 HCl ER 750 MG MG MG Atomoxetine Atomoxetine No Atomoxetin HCl 100 MG HCl 100 MG e HCl 100 MG Atorvastati Atorvastati No Atorvastat n Calcium n Calcium in Calcium 20 MG 20 MG 20 MG Atorvastati Atorvastati No 1{table QD Atorvastat n Calcium n Calcium t} in Calcium 20 MG 20 MG 20 MG Metoprolol Metoprolol No 1{table QD Metoprolol Succinate Succinate t} Succinate ER 100 MG ER 100 MG ER 100 MG Atomoxetine Atomoxetine No 1{capsu QD Atomoxetin HCl 100 MG HCl 100 MG le_in_t e HCl 100 he_morn MG ing} Lyrica 75 Lyrica 75 No 1{capsu BID Lyrica 75 MG MG le} MG No 1{table QD Vitamins - Vitamins - t} Vitamins - glipiZIDE glipiZIDE No 1{table QD glipiZIDE XL 5 MG XL 5 MG t_with_ XL 5 MG food} Clopidogrel Clopidogrel No Clopidogre Bisulfate Bisulfate l 75 MG 75 MG Bisulfate 75 MG Clopidogrel Clopidogrel No Clopidogre Bisulfate Bisulfate l 75 MG 75 MG Bisulfate 75 MG glipiZIDE glipiZIDE No glipiZIDE ER 5 MG ER 5 MG ER 5 MG metFORMIN metFORMIN No metFORMIN HCl ER 750 HCl ER 750 HCl ER 750 MG MG MG Metoprolol Metoprolol No Metoprolol Succinate Succinate Succinate ER 100 MG ER 100 MG ER 100 MG Metformin Metformin No 1{table BID Metformin HCl 1000 MG HCl 1000 MG t_with_ HCl 1000 meals} MG Simvastatin Simvastatin No Simvastati 40 MG 40 MG n 40 MG Ozempic (1 Ozempic (1 No Ozempic (1 MG/DOSE) 4 MG/DOSE) 4 MG/DOSE) 4 MG/3ML MG/3ML MG/3ML Atomoxetine Atomoxetine No Atomoxetin HCl 100 MG HCl 100 MG e HCl 100 MG Ozempic (1 Ozempic (1 No Ozempic (1 MG/DOSE) 2 MG/DOSE) 2 MG/DOSE) 2 MG/1.5ML MG/1.5ML MG/1.5ML Vitamin D Vitamin D No 1{table QD Vitamin D 2000 UNIT 2000 UNIT t} 2000 UNIT Ozempic 1 Ozempic 1 No Ozempic 1 MG/DOSE MG/DOSE MG/DOSE Atorvastati Atorvastati No 1{table QD Atorvastat n Calcium n Calcium t} in Calcium 20 MG 20 MG 20 MG Irbesartan Irbesartan No 1{table QD Irbesartan 150 MG 150 MG t} 150 MG Atorvastati Atorvastati No Atorvastat n Calcium n Calcium in Calcium 20 MG 20 MG 20 MG Atomoxetine Atomoxetine No 1{capsu QD Atomoxetin HCl 100 MG HCl 100 MG le_in_t e HCl 100 he_morn MG ing} Metoprolol Metoprolol No 1{table QD Metoprolol Succinate Succinate t} Succinate ER 100 MG ER 100 MG ER 100 MG Irbesartan Irbesartan No Irbesartan 150 MG 150 MG 150 MG Magnesium Magnesium No 1{table QD Magnesium 500 MG 500 MG t_with_ 500 MG a_meal} Fish Oil Fish Oil No 1{capsu QD Fish Oil 1200 MG 1200 MG le} 1200 MG Aspir-Low Aspir-Low No 1{table QD Aspir-Low 81 MG 81 MG t} 81 MG Vitamin C Vitamin C No 1{table QD Vitamin C 1000 MG 1000 MG t} 1000 MG Lyrica 75 Lyrica 75 No 1{capsu BID Lyrica 75 MG MG le} MG No 1{table QD Vitamins - Vitamins - t} Vitamins - glipiZIDE glipiZIDE No 1{table QD glipiZIDE XL 5 MG XL 5 MG t_with_ XL 5 MG food} Clopidogrel Clopidogrel No Clopidogre Bisulfate Bisulfate l 75 MG 75 MG Bisulfate 75 MG glipiZIDE glipiZIDE No glipiZIDE ER 5 MG ER 5 MG ER 5 MG metFORMIN metFORMIN No metFORMIN HCl ER 750 HCl ER 750 HCl ER 750 MG MG MG Metoprolol Metoprolol No Metoprolol Succinate Succinate Succinate ER 100 MG ER 100 MG ER 100 MG Metformin Metformin No 1{table BID Metformin HCl 1000 MG HCl 1000 MG t_with_ HCl 1000 meals} MG Simvastatin Simvastatin No Simvastati 40 MG 40 MG n 40 MG Ozempic (1 Ozempic (1 No Ozempic (1 MG/DOSE) 4 MG/DOSE) 4 MG/DOSE) 4 MG/3ML MG/3ML MG/3ML Atomoxetine Atomoxetine No Atomoxetin HCl 100 MG HCl 100 MG e HCl 100 MG Ozempic (1 Ozempic (1 No Ozempic (1 MG/DOSE) 2 MG/DOSE) 2 MG/DOSE) 2 MG/1.5ML MG/1.5ML MG/1.5ML Vitamin D Vitamin D No 1{table QD Vitamin D 2000 UNIT 2000 UNIT t} 2000 UNIT Ozempic 1 Ozempic 1 No Ozempic 1 MG/DOSE MG/DOSE MG/DOSE Atorvastati Atorvastati No 1{table QD Atorvastat n Calcium n Calcium t} in Calcium 20 MG 20 MG 20 MG Irbesartan Irbesartan No 1{table QD Irbesartan 150 MG 150 MG t} 150 MG Atorvastati Atorvastati No Atorvastat n Calcium n Calcium in Calcium 20 MG 20 MG 20 MG Atomoxetine Atomoxetine No 1{capsu QD Atomoxetin HCl 100 MG HCl 100 MG le_in_t e HCl 100 he_morn MG ing} Metoprolol Metoprolol No 1{table QD Metoprolol Succinate Succinate t} Succinate ER 100 MG ER 100 MG ER 100 MG Irbesartan Irbesartan No Irbesartan 150 MG 150 MG 150 MG Magnesium Magnesium No 1{table QD Magnesium 500 MG 500 MG t_with_ 500 MG a_meal} Fish Oil Fish Oil No 1{capsu QD Fish Oil 1200 MG 1200 MG le} 1200 MG Aspir-Low Aspir-Low No 1{table QD Aspir-Low 81 MG 81 MG t} 81 MG Vitamin C Vitamin C No 1{table QD Vitamin C 1000 MG 1000 MG t} 1000 MG Lyrica 75 Lyrica 75 No 1{capsu BID Lyrica 75 MG MG le} MG No 1{table QD Vitamins - Vitamins - t} Vitamins - glipiZIDE glipiZIDE No 1{table QD glipiZIDE XL 5 MG XL 5 MG t_with_ XL 5 MG food} Clopidogrel Clopidogrel No Clopidogre Bisulfate Bisulfate l 75 MG 75 MG Bisulfate 75 MG glipiZIDE glipiZIDE No glipiZIDE ER 5 MG ER 5 MG ER 5 MG metFORMIN metFORMIN No metFORMIN HCl ER 750 HCl ER 750 HCl ER 750 MG MG MG Metoprolol Metoprolol No Metoprolol Succinate Succinate Succinate ER 100 MG ER 100 MG ER 100 MG Metformin Metformin No 1{table BID Metformin HCl 1000 MG HCl 1000 MG t_with_ HCl 1000 meals} MG Simvastatin Simvastatin No Simvastati 40 MG 40 MG n 40 MG Ozempic (1 Ozempic (1 No Ozempic (1 MG/DOSE) 4 MG/DOSE) 4 MG/DOSE) 4 MG/3ML MG/3ML MG/3ML Atomoxetine Atomoxetine No Atomoxetin HCl 100 MG HCl 100 MG e HCl 100 MG Ozempic (1 Ozempic (1 No Ozempic (1 MG/DOSE) 2 MG/DOSE) 2 MG/DOSE) 2 MG/1.5ML MG/1.5ML MG/1.5ML Vitamin D Vitamin D No 1{table QD Vitamin D 2000 UNIT 2000 UNIT t} 2000 UNIT Ozempic 1 Ozempic 1 No Ozempic 1 MG/DOSE MG/DOSE MG/DOSE Atorvastati Atorvastati No 1{table QD Atorvastat n Calcium n Calcium t} in Calcium 20 MG 20 MG 20 MG Irbesartan Irbesartan No 1{table QD Irbesartan 150 MG 150 MG t} 150 MG Atorvastati Atorvastati No Atorvastat n Calcium n Calcium in Calcium 20 MG 20 MG 20 MG Atomoxetine Atomoxetine No 1{capsu QD Atomoxetin HCl 100 MG HCl 100 MG le_in_t e HCl 100 he_morn MG ing} Metoprolol Metoprolol No 1{table QD Metoprolol Succinate Succinate t} Succinate ER 100 MG ER 100 MG ER 100 MG Irbesartan Irbesartan No Irbesartan 150 MG 150 MG 150 MG Magnesium Magnesium No 1{table QD Magnesium 500 MG 500 MG t_with_ 500 MG a_meal} Fish Oil Fish Oil No 1{capsu QD Fish Oil 1200 MG 1200 MG le} 1200 MG Aspir-Low Aspir-Low No 1{table QD Aspir-Low 81 MG 81 MG t} 81 MG Vitamin C Vitamin C No 1{table QD Vitamin C 1000 MG 1000 MG t} 1000 MG Lyrica 75 Lyrica 75 No 1{capsu BID Lyrica 75 MG MG le} MG No 1{table QD Vitamins - Vitamins - t} Vitamins - glipiZIDE glipiZIDE No 1{table QD glipiZIDE XL 5 MG XL 5 MG t_with_ XL 5 MG food} Ozempic (1 Ozempic (1 No Ozempic (1 MG/DOSE) 4 MG/DOSE) 4 MG/DOSE) 4 MG/3ML MG/3ML MG/3ML Simvastatin Simvastatin No Simvastati 40 MG 40 MG n 40 MG Metoprolol Metoprolol No Metoprolol Succinate Succinate Succinate ER 100 MG ER 100 MG ER 100 MG Ozempic (1 Ozempic (1 No Ozempic (1 MG/DOSE) 2 MG/DOSE) 2 MG/DOSE) 2 MG/1.5ML MG/1.5ML MG/1.5ML metFORMIN metFORMIN No metFORMIN HCl ER 750 HCl ER 750 HCl ER 750 MG MG MG Metformin Metformin No 1{table BID Metformin HCl 1000 MG HCl 1000 MG t_with_ HCl 1000 meals} MG Atomoxetine Atomoxetine No Atomoxetin HCl 100 MG HCl 100 MG e HCl 100 MG Metoprolol Metoprolol No 1{table QD Metoprolol Succinate Succinate t} Succinate ER 100 MG ER 100 MG ER 100 MG Vitamin D Vitamin D No 1{table QD Vitamin D 2000 UNIT 2000 UNIT t} 2000 UNIT Magnesium Magnesium No 1{table QD Magnesium 500 MG 500 MG t_with_ 500 MG a_meal} Fish Oil Fish Oil No 1{capsu QD Fish Oil 1200 MG 1200 MG le} 1200 MG Clopidogrel Clopidogrel No Clopidogre Bisulfate Bisulfate l 75 MG 75 MG Bisulfate 75 MG Aspir-Low Aspir-Low No 1{table QD Aspir-Low 81 MG 81 MG t} 81 MG Irbesartan Irbesartan No 1{table QD Irbesartan 150 MG 150 MG t} 150 MG Irbesartan Irbesartan No Irbesartan 150 MG 150 MG 150 MG Atorvastati Atorvastati No Atorvastat n Calcium n Calcium in Calcium 20 MG 20 MG 20 MG Atomoxetine Atomoxetine No 1{capsu QD Atomoxetin HCl 100 MG HCl 100 MG le_in_t e HCl 100 he_morn MG ing} glipiZIDE glipiZIDE No glipiZIDE ER 5 MG ER 5 MG ER 5 MG Ozempic 1 Ozempic 1 No Ozempic 1 MG/DOSE MG/DOSE MG/DOSE Atorvastati Atorvastati No 1{table QD Atorvastat n Calcium n Calcium t} in Calcium 20 MG 20 MG 20 MG Vitamin C Vitamin C No 1{table QD Vitamin C 1000 MG 1000 MG t} 1000 MG No 1{table QD Vitamins - Vitamins - t} Vitamins - glipiZIDE glipiZIDE No 1{table QD glipiZIDE XL 5 MG XL 5 MG t_with_ XL 5 MG food} Ozempic (1 Ozempic (1 No Ozempic (1 MG/DOSE) 4 MG/DOSE) 4 MG/DOSE) 4 MG/3ML MG/3ML MG/3ML Simvastatin Simvastatin No Simvastati 40 MG 40 MG n 40 MG Metoprolol Metoprolol No Metoprolol Succinate Succinate Succinate ER 100 MG ER 100 MG ER 100 MG Ozempic (1 Ozempic (1 No Ozempic (1 MG/DOSE) 2 MG/DOSE) 2 MG/DOSE) 2 MG/1.5ML MG/1.5ML MG/1.5ML metFORMIN metFORMIN No metFORMIN HCl ER 750 HCl ER 750 HCl ER 750 MG MG MG Metformin Metformin No 1{table BID Metformin HCl 1000 MG HCl 1000 MG t_with_ HCl 1000 meals} MG Atomoxetine Atomoxetine No Atomoxetin HCl 100 MG HCl 100 MG e HCl 100 MG Metoprolol Metoprolol No 1{table QD Metoprolol Succinate Succinate t} Succinate ER 100 MG ER 100 MG ER 100 MG Vitamin D Vitamin D No 1{table QD Vitamin D 2000 UNIT 2000 UNIT t} 2000 UNIT Magnesium Magnesium No 1{table QD Magnesium 500 MG 500 MG t_with_ 500 MG a_meal} Fish Oil Fish Oil No 1{capsu QD Fish Oil 1200 MG 1200 MG le} 1200 MG Clopidogrel Clopidogrel No Clopidogre Bisulfate Bisulfate l 75 MG 75 MG Bisulfate 75 MG Aspir-Low Aspir-Low No 1{table QD Aspir-Low 81 MG 81 MG t} 81 MG Irbesartan Irbesartan No 1{table QD Irbesartan 150 MG 150 MG t} 150 MG Irbesartan Irbesartan No Irbesartan 150 MG 150 MG 150 MG Atorvastati Atorvastati No Atorvastat n Calcium n Calcium in Calcium 20 MG 20 MG 20 MG Atomoxetine Atomoxetine No 1{capsu QD Atomoxetin HCl 100 MG HCl 100 MG le_in_t e HCl 100 he_morn MG ing} glipiZIDE glipiZIDE No glipiZIDE ER 5 MG ER 5 MG ER 5 MG Ozempic 1 Ozempic 1 No Ozempic 1 MG/DOSE MG/DOSE MG/DOSE Immunizations Ordered Immunization Filled Immunization Date Status Commen ts Source Name Name [facility] (Low Dose Vaccine (Low Dose 13:12:00 - [facility] Booster) Booster) [facility] COVID19 [facility] COVID-19 2021-08-22 Completed [facility] Vaccine (Low Dose Vaccine (Low Dose 13:12:00 - [facility] Booster) Booster) [facility] COVID19 [facility] COVID-19 2021-08-22 Completed [facility] Vaccine (Low Dose Vaccine (Low Dose 13:12:00 - [facility] Vaccine (Low Dose Vaccine (Low Dose 13:12:00 - [facility] Booster) Booster) [facility] [address] [facility]22 [facility] Vaccine (Low Dose Vaccine (Low Dose 13:12:00 - [facility] Booster) Booster) [facility] [address] [facility]-22 Com[facility] Vaccine (Low Dose Vaccine (Low Dose 13:12:00 - [facility] Booster) Booster) [facility] [address] [facility] 2021-[facility]-22 Com[facility] Vaccine (Low Dose Vaccine (Low Dose 13:12:00 - [facility] Booster) Booster) [facility] [address] [facility] 2021-[facility]-22 Com[facility] Vaccine (Low Dose Vaccine (Low Dose 13:12:00 - [facility] Booster) Booster) [facility] [address] [facility] 2021-08-22 Com[facility] Vaccine (Low Dose Vaccine (Low Dose 13:12:00 - [facility] Booster) Booster) [facility] [address] [facility] 2021-08-22 Com[facility] Vaccine (Low Dose Vaccine (Low Dose 13:12:00 - [facility] Booster) Booster) [facility] [address] [facility] 2021-08-22 Com[facility] Vaccine (Low Dose Vaccine (Low Dose 13:12:00 - [facility] Booster) Booster) [facility] [address] [facility] 2021-08-22 Com[facility] Vaccine (Low Dose Vaccine (Low Dose 13:12:00 - [facility] Booster) Booster) [facility] [address] [facility] 2021-08-22 Com[facility] Vaccine (Low Dose Vaccine (Low Dose 13:12:00 - [facility] Booster) Booster) [facility] [address] COVID19 2021-08-22 Completed [facility] Vaccine (Low Dose Vaccine (Low Dose 13:12:00 - [facility] Booster) Booster) [facility]19 2021-08-22 Completed [facility] Vaccine (Low Dose Vaccine (Low Dose 13:12:00 - [facility] Booster) Booster) [facility] [address] COVID19 2021-08-22 Completed [facility] Vaccine (Low Dose Vaccine (Low Dose 13:12:00 - [facility] Booster) Booster) [facility] [address] [facility] 2021-08-22 Com[facility] Vaccine (Low Dose Vaccine (Low Dose 13:12:00 - [facility] Booster) Booster) [facility] [address] COVID19 2021-08-22 Completed [facility] Vaccine (Low Dose Vaccine (Low Dose 13:12:00 - [facility] Booster) Booster) [facility] [address] [facility] 2021-08-22 Com[facility] Vaccine (Low Dose Vaccine (Low Dose 13:12:00 - [facility] Booster) Booster) [facility] [address] [facility] 2021-08-22 Com[facility] Vaccine (Low Dose Vaccine (Low Dose 13:12:00 - [facility] Booster) Booster) [facility] [address] [facility] 2021-08-22 Com[facility] Vaccine (Low Dose Vaccine (Low Dose 13:12:00 - [facility] Booster) Booster) [facility] [address] COVID19 2021-08-22 Completed [facility] Vaccine (Low Dose Vaccine (Low Dose 13:12:00 - [facility] Booster) Booster) [facility] [address] COVID19 2021-08-22 Completed [facility] Vaccine (Low Dose Vaccine (Low Dose 13:12:00 - [facility] Booster) Booster) [facility] [address] COVID19 2021-08-22 Completed [facility] Vaccine (Low Dose Vaccine (Low Dose 13:12:00 - [facility] Booster) Booster) [facility] [address] COVID19 2021-08-22 Completed [facility] Vaccine (Low Dose Vaccine (Low Dose 13:12:00 - [facility] Booster) Booster) [facility] COVID19 [facility] COVID19 2021-08-22 Completed [facility] Vaccine (Low Dose Vaccine (Low Dose 13:12:00 - [facility] Booster) Booster) [facility] COVID19 [facility] COVID19 2021-08-22 Completed [facility] Vaccine (Low Dose Vaccine (Low Dose 13:12:00 - [facility] Booster) Booster) [facility] COVID19 [facility] COVID19 2021-08-22 Completed [facility] Vaccine (Low Dose Vaccine (Low Dose 13:12:00 - [facility] Booster) Booster) [facility] COVIDMandy [facility] COVID19 2021-08-22 Completed [facility] Vaccine (Low Dose Vaccine (Low Dose 13:12:00 - [facility] Booster) Booster) [facility] 2021-05-29 [facility] 13:35:00 [facility] Afluria Afluria 2021-05-29 Completed [facility] 13:35:00 [facility] 13:35:00 [facility] Afluria Afluria 2021-05-29 Completed [facility] 13:35:00 [facility]29 [facility] 13:35:00 [facility] Afluria Afluria 2021-05-29 Completed [facility] 13:35:00 [facility]-05-29 [facility] 13:35:00 [facility] Afluria Afluria 2021-05-29 Completed [facility] 13[facility]35:00 [facility] 2021-05-29 [facility] 13:35:00 [facility] Afluria Afluria 2021-05-29 Completed [facility] 13:35:00 [facility] 2021-05-29 Com[facility] 13:35:00 [facility] Afluria Afluria 2021-05-29 Completed [facility] 13:35:00 - [facility] Shingrix Shingrix 2021-05-29 Completed [facility] 13:35:00 - [facility] Afluria Afluria 2021-05-29 Completed [facility] 13:35:00 - [facility] Shingrix Shingrix 2021-05-29 Completed [facility] 13:35:00 - [facility] Afluria Afluria 2021-05-29 Completed [facility] 13:35:00 - [facility] Shingrix Shingrix 2021-05-29 Completed [facility] 13:35:00 - [facility] Afluria Afluria 2021-05-29 Completed [facility] 13:35:00 - [facility] Shingrix Shingrix 2021-05-29 Completed [facility] 13:35:00 - [facility] Afluria Afluria 2021-05-29 Completed [facility] 13:35:00 - [facility] Shingrix Shingrix 2021-05-29 Completed [facility] 13:35:00 - [facility] Afluria Afluria 2021-05-29 Completed [facility] 13:35:00 - [facility] Shingrix Shingrix 2021-05-29 Completed [facility] 13:35:00 - [facility] Afluria Afluria 2021-05-29 Completed [facility] 13:35:00 - [facility] Shingrix Shingrix 2021-05-29 Completed [facility] 13:35:00 - [facility] Afluria Afluria 2021-05-29 Completed [facility] 13:35:00 - [facility] Shingrix Shingrix 2021-05-29 Completed [facility] 13:35:00 - [facility] Afluria Afluria 2021-05-29 Completed [facility] 13:35:00 - [facility] Shingrix Shingrix 2021-05-29 Completed [facility] 13:35:00 - [facility] Afluria Afluria 2021-05-29 Completed [facility] 13:35:00 - [facility] Shingrix Shingrix 2021-05-29 Completed [facility] 13:35:00 - [facility] Afluria Afluria 2021-05-29 Completed [facility] 13:35:00 - [facility] Shingrix Shingrix 2021-05-29 Completed [facility] 13:35:00 - [facility] Afluria Afluria 2021-05-29 Completed [facility] 13:35:00 - [facility] Shingrix Shingrix 2021-05-29 Completed [facility] 13:35:00 - [facility] Afluria Afluria 2021-05-29 Completed [facility] 13:35:00 - [facility] Shingrix Shingrix 2021-05-29 Completed [facility] 13:35:00 - [facility] Afluria Afluria 2021-05-29 Completed [facility] 13:35:00 - [facility] Shingrix Shingrix 2021-05-29 Completed [facility] 13:35:00 - [facility] Afluria Afluria 2021-05-29 Completed [facility] 13:35:00 - [facility] Shingrix Shingrix 2021-05-29 Completed [facility] 13:35:00 - [facility] Afluria Afluria 2021-05-29 Completed [facility] 13:35:00 - [facility] Shingrix Shingrix 2021-05-29 Completed [facility] 13:35:00 - [facility] Afluria Afluria 2021-05-29 Completed [facility] 13:35:00 - [facility] Shingrix Shingrix 2021-05-29 Completed [facility] 13:35:00 - [facility] Afluria Afluria 2021-05-29 Completed [facility] 13:35:00 - [facility] Shingrix Shingrix 2021-05-29 Completed [facility] 13:35:00 - [facility] Afluria Afluria 2021-05-29 Completed [facility] 13:35:00 - [facility] Shingrix Shingrix 2021-05-29 Completed [facility] 13:35:00 - [facility] Afluria Afluria 2021-05-29 Completed [facility] 13:35:00 - [facility] Shingrix Shingrix 2021-05-29 Completed [facility] 13:35:00 - [facility] Afluria Afluria 2021-05-29 Completed [facility] 13:35:00 - [facility] Shingrix Shingrix 2021-05-29 Completed [facility] 13:35:00 - [facility] Afluria Afluria 2021-05-29 Completed [facility] 13:35:00 - [facility] Shingrix Shingrix 2021-05-29 Completed [facility] 13:35:00 - [facility] Afluria Afluria 2021-05-29 Completed [facility] 13:35:00 - [facility] Shingrix Shingrix 2021-05-29 Completed [facility] 13:35:00 - [facility] Afluria Afluria 2021-05-29 Completed [facility] 13:35:00 - [facility] Shingrix Shingrix 2021-05-29 Completed [facility] 13:35:00 - [facility] Afluria Afluria 2021-05-29 Completed [facility] 13:35:00 - [facility] Shingrix Shingrix 2021-05-29 Completed [facility] 13:35:00 - [facility] Afluria Afluria 2021-05-29 Completed [facility] 13:35:00 - [facility] Shingrix Shingrix 2021-05-29 Completed [facility] 13:35:00 - [facility] Afluria Afluria 2021-05-29 Completed [facility] 13:35:00 - [facility] Shingrix Shingrix 2021-05-29 Completed [facility] 13:35:00 [facility] Afluria Afluria 2021-05-29 Completed [facility] 13:35:00 - [facility] Shingrix Shingrix 2021-05-29 Completed [facility] 13:35:00 - [facility] Afluria Afluria 2021-05-29 Completed [facility] 13:35:00 - [facility] Moderna COVID-19 Moderna COVID-19 2019-10-08 Completed [facility] Vaccine Vaccine 13:12:00 - [facility] Moderna COVID-19 Moderna COVID-19 2019-10-08 Completed [facility] Vaccine Vaccine 13:12:00 [facility] Moderna COVID-19 Moderna COVID-19 2019-10-08 Completed [facility] Vaccine Vaccine 13:12:00 [facility] Moderna COVID-19 Moderna COVID-19 2019-10-08 Completed [facility] Vaccine Vaccine 13:12:00 [facility] Moderna COVID-19 Moderna COVID-19 2019-10-08 Completed [facility] Vaccine Vaccine 13:12:00 [facility] Moderna COVID-19 Moderna COVID-19 2019-10-08 Completed [facility] Vaccine Vaccine 13:12:00 [facility] Moderna COVID-19 Moderna COVID-19 2019-10-08 Completed [facility] Vaccine Vaccine 13:12:00 [facility] Moderna COVID-19 Moderna COVID-19 2019-10-08 Completed [facility] Vaccine Vaccine 13:12:00 [facility] Moderna COVID-19 Moderna COVID-19 2019-10-08 Completed [facility] Vaccine Vaccine 13:12:00 [facility] Moderna COVID-19 Moderna COVID-19 2019-10-08 Completed [facility] Vaccine Vaccine 13:12:00 [facility] Moderna COVID-19 Moderna COVID-19 2019-10-08 Completed [facility] Vaccine Vaccine 13:12:00 [facility] Moderna COVID-19 Moderna COVID-19 2019-10-08 Completed [facility] Vaccine Vaccine 13:12:00 [facility] Moderna COVID-19 Moderna COVID-19 2019-10-08 Completed [facility] Vaccine Vaccine 13:12:00 [facility] Moderna COVID-19 Moderna COVID-19 2019-10-08 Completed [facility] Vaccine Vaccine 13:12:00 [facility] Moderna COVID-19 Moderna COVID-19 2019-10-08 Completed [facility] Vaccine Vaccine 13:12:00 - [facility] Moderna COVID-19 Moderna COVID-19 2019-10-08 Completed [facility] Vaccine Vaccine 13:12:00 - [facility] Moderna COVID-19 Moderna COVID-19 2019-10-08 Completed [facility] Vaccine Vaccine 13:12:00 - [facility] Moderna COVID-19 Moderna COVID-19 2019-10-08 Completed [facility] Vaccine Vaccine 13:12:00 - [facility] Moderna COVID-19 Moderna COVID-19 2019-10-08 Completed [facility] Vaccine Vaccine 13:12:00 [facility] Moderna COVID-19 Moderna COVID-19 2019-10-08 Completed [facility] Vaccine Vaccine 13:12:00 - [facility] Moderna COVID-19 Moderna COVID-19 2019-10-08 Completed [facility] Vaccine Vaccine 13:12:00 - [facility] Moderna COVID-19 Moderna COVID-19 2019-10-08 Completed [facility] Vaccine Vaccine 13:12:00 [facility] Moderna COVID-19 Moderna COVID-19 2019-10-08 Completed [facility] Vaccine Vaccine 13:12:00 [facility] Moderna COVID-19 Moderna COVID-19 2019-10-08 Completed [facility] Vaccine Vaccine 13:12:00 [facility] Moderna COVID-19 Moderna COVID-19 2019-10-08 Completed [facility] Vaccine Vaccine 13:12:00 - [facility] Moderna COVID-19 Moderna COVID-19 2019-10-08 Completed [facility] Vaccine Vaccine 13:12:00 [facility] Moderna COVID-19 Moderna COVID-19 2019-10-08 Completed [facility] Vaccine Vaccine 13:12:00 [facility] Moderna COVID-19 Moderna COVID-19 2019-10-08 Completed [facility] Vaccine Vaccine 13:12:00 [facility] Moderna COVID-19 Moderna COVID-19 2019-10-08 Completed [facility] Vaccine Vaccine 13:12:00 - [facility] Moderna COVID-19 Moderna COVID-19 2019-09-09 Completed [facility] Vaccine Vaccine 13:11:00 - [facility] Moderna COVID-19 Moderna COVID-19 2019-09-09 Completed [facility] Vaccine Vaccine 13:11:00 - [facility] Moderna COVID-19 Moderna COVID-19 2019-09-09 Completed [facility] Vaccine Vaccine 13:11:00 - [facility] Moderna COVID-19 Moderna COVID-19 2019-09-09 Completed [facility] Vaccine Vaccine 13:11:00 [facility] Moderna COVID-19 Moderna COVID-19 2019-09-09 Completed [facility] Vaccine Vaccine 13:11:00 - [facility] Moderna COVID-19 Moderna COVID-19 2019-09-09 Completed [facility] Vaccine Vaccine 13:11:00 - [facility] Moderna COVID-19 Moderna COVID-19 2019-09-09 Completed [facility] Vaccine Vaccine 13:11:00 - [facility] Moderna COVID-19 Moderna COVID-19 2019-09-09 Completed [facility] Vaccine Vaccine 13:11:00 [facility] Moderna COVID-19 Moderna COVID-19 2019-09-09 Completed [facility] Vaccine Vaccine 13:11:00 [facility] Moderna COVID-19 Moderna COVID-19 2019-09-09 Completed [facility] Vaccine Vaccine 13:11:00 - [facility] Moderna COVID-19 Moderna COVID-19 2019-09-09 Completed [facility] Vaccine Vaccine 13:11:00 [facility] Moderna COVID-19 Moderna COVID-19 2019-09-09 Completed [facility] Vaccine Vaccine 13:11:00 [facility] Moderna COVID-19 Moderna COVID-19 2019-09-09 Completed [facility] Vaccine Vaccine 13:11:00 [facility] Moderna COVID-19 Moderna COVID-19 2019-09-09 Completed [facility] Vaccine Vaccine 13:11:00 - [facility] Moderna COVID-19 Moderna COVID-19 2019-09-09 Completed [facility] Vaccine Vaccine 13:11:00 - [facility] Moderna COVID-19 Moderna COVID-19 2019-09-09 Completed [facility] Vaccine Vaccine 13:11:00 - [facility] Moderna COVID-19 Moderna COVID-19 2019-09-09 Completed [facility] Vaccine Vaccine 13:11:00 - [facility] Moderna COVID-19 Moderna COVID-19 2019-09-09 Completed [facility] Vaccine Vaccine 13:11:00 - [facility] Moderna COVID-19 Moderna COVID-19 2019-09-09 Completed [facility] Vaccine Vaccine 13:11:00 - [facility] Moderna COVID-19 Moderna COVID-19 2019-09-09 Completed [facility] Vaccine Vaccine 13:11:00 - [facility] Moderna COVID-19 Moderna COVID-19 2019-09-09 Completed [facility] Vaccine Vaccine 13:11:00 - [facility] Moderna COVID-19 Moderna COVID-19 2019-09-09 Completed [facility] Vaccine Vaccine 13:11:00 - [facility] Moderna COVID-19 Moderna COVID-19 2019-09-09 Completed [facility] Vaccine Vaccine 13:11:00 - [facility] Moderna COVID-19 Moderna COVID-19 2019-09-09 Completed [facility] Vaccine Vaccine 13:11:00 - [facility] Moderna COVID-19 Moderna COVID-19 2019-09-09 Completed [facility] Vaccine Vaccine 13:11:00 - [facility] Moderna COVID-19 Moderna COVID-19 2019-09-09 Completed [facility] Vaccine Vaccine 13:11:00 - [facility] Moderna COVID-19 Moderna COVID-19 2019-09-09 Completed [facility] Vaccine Vaccine 13:11:00 [facility] Moderna COVID-19 Moderna COVID-19 2019-09-09 Completed [facility] 2019-09-09 Com[facility] Vaccine Vaccine 13:11:00 - [facility] Vital Signs Vital Name Observation Time Observation Value Comments Source height 2022-08-12 11:00:00 65 [in_i] [facility] weight 2022-08-12 11:00:00 161.7 [lb_av] [facility] temperature 2022-08-12 11:00:00 98 [degF] [facility] bmi 2022-08-12 11:00:00 26.91 kg/m2 [facility] blood pressure 2022-08-12 11:00:00 137 mm[Hg] [facility] - systolic [facility] blood pressure 2022-08-12 11:00:00 74 mm[Hg] [facility] - [facility] height 2022-07-02 14:30:00 65 [in_i] [facility] 2022-07-02 14:30:00 163.0 [lb_av] [facility] temperature 2022-07-02 14:30:00 97.5 [degF] [facility] bmi 2022-07-02 14:30:00 27.12 kg/m2 [facility] S pirit [facility] oximetry 2022-07-02 14:30:00 96 % [facility] rate 2022-07-02 14:30:00 17 /min Comm on [facility] blood pressure 2022-07-02 14:30:00 142 mm[Hg] Common [facility] - systolic [facility] blood pressure 2022-07-02 14:30:00 67 mm[Hg] [facility] - [facility] height 2022-06-19 08:10:00 65 [in_i] Common S pirit [facility] weight 2022-06-19 08:10:00 163.8 [lb_av] [facility] temperature 2022-06-19 08:10:00 97.1 [degF] Common [facility] bmi 2022-06-19 08:10:00 27.25 kg/m2 [facility] oximetry 2022-06-19 08:10:00 100 % [facility] respiratory rate 2022-06-19 08:10:00 18 /min Comm on [facility] blood pressure 2022-06-19 08:10:00 140 mm[Hg] Common [facility] - systolic [facility] blood pressure 2022-06-19 08:10:00 73 mm[Hg] [facility] - diastolic [facility] height 2022-04-30 16:20:00 65 [in_i] [facility] weight 2022-04-30 16:20:00 159.0 [lb_av] [facility] temperature 2022-04-30 16:20:00 97.1 [degF] [facility] bmi 2022-04-30 16:20:00 26.46 kg/m2 [facility] oximetry 2022-04-30 16:20:00 98 % [facility] respiratory rate 2022-04-30 16:20:00 18 /min Comm on [facility] blood pressure 2022-04-30 16:20:00 127 mm[Hg] Common [facility] - systolic [facility] blood pressure 2022-04-30 16:20:00 73 mm[Hg] Common [facility] - diastolic [facility] height 2022-01-11 09:10:00 65 [in_i] [facility] weight 2022-01-11 09:10:00 155.8 [lb_av] [facility] temperature 2022-01-11 09:10:00 97.1 [degF] [facility] bmi 2022-01-11 09:10:00 25.92 kg/m2 [facility] S [facility]irit [facility] oximetry 2022-01-11 09:10:00 100 % [facility] S pirit [facility] respiratory rate 2022-01-11 09:10:00 18 /min Comm on [facility] blood pressure 2022-01-11 09:10:00 135 mm[Hg] [facility] blood pressure 2022-01-11 09:10:00 76 mm[Hg] [facility] height 2021-09-05 13:10:00 65 [in_i] Common S pirit [facility] weight 2021-09-05 13:10:00 164.2 [lb_av] [facility] temperature 2021-09-05 13:10:00 97.5 [degF] Common S pirit [facility] bmi 2021-09-05 13:10:00 27.32 kg/m2 Common S pirit [facility] oximetry 2021-09-05 13:10:00 100 % [facility] rate 2021-09-05 13:10:00 18 /min Comm on [facility] blood pressure 2021-09-05 13:10:00 132 mm[Hg] Common [facility] - systolic [facility] blood pressure 2021-09-05 13:10:00 76 mm[Hg] Common [facility] - diastolic [facility] height 2021-06-05 13:20:00 65 [in_i] Common S pirit [facility] weight 2021-06-05 13:20:00 164.1 [lb_av] [facility] temperature 2021-06-05 13:20:00 97.0 [degF] Common S pirit [facility] 2021-06-05 13:20:00 27.3 kg/m2 [facility] S pirit [facility] oximetry 2021-06-05 13:20:00 97 % Common S pirit - [facility] respiratory rate 2021-06-05 13:20:00 18 /min Comm on [facility] blood pressure 2021-06-05 13:20:00 123 mm[Hg] Common [facility] - systolic [facility] blood pressure 2021-06-05 13:20:00 67 mm[Hg] Common [facility] - diastolic [facility] Procedures Procedure Date / Time Performed Performing Clinician Sour e CONSENT/REFUSAL FOR 2021-08-27 17:39:26 Doctor Unassigned, No Un [facility] DIAGNOSIS AND Name [facility] TREATMENT Encounters Start End Encounter Admission Attending Care Care Encounter Source Date/Time Date/Time Type Type Clinicians Facility Department ID 2022-08-08 Outpatient Shaffer, STLMLC STLMLC [id number] Common 11:25:01 Jhonny [facility] 2022-04-30 Outpatient Shaffer, STLMLC STLMLC Common 08:18:00 Jhonny [facility] 2022-01-11 Outpatient Shaffer, STLMLC STLMLC [id number] Common 09:18:01 Jhonny [facility] 2021-09-26 Outpatient Shaffer, STLMLC STLMLC Common 14:31:19 Jhonny [facility] 2021-09-26 Outpatient Shaffer, STLMLC STLMLC [id number] Common 14:05:00 Jhonny [id number] [facility] 2021-09-26 Outpatient Shaffer, STLMLC STLMLC [id number] Common 13:56:30 Jhonny [id number] [facility] 2021-09-26 Outpatient Shaffer, STLMLC STLMLC [id number] Common 12:48:04 Jhonny [id number] [facility] 2021-09-26 Outpatient Shaffer, STLMLC STLMLC [id number] Common 12:47:30 Jhonny [id number] [facility] 2021-09-26 Outpatient Shaffer, STLMLC STLMLC [id number] Common 12:45:55 Jhonny [id number] [facility] 2021-09-26 Outpatient Shaffer, STLMLC STLMLC [id number] Common 12:45:22 Jhonny [id number] [facility] 2021-09-26 Outpatient Shaffer, STLMLC STLMLC [id number] Common 12:35:21 Jhonny [id number] [facility] 2021-09-26 Outpatient Shaffer, STLMLC STLMLC [id number] Common 11:50:41 Jhonny [id number] [facility] 2021-09-26 Outpatient Shaffer, STLMLC STLMLC Common 11:17:22 Jhonny [id number] [facility] 2021-09-26 Outpatient Shaffer, STLMLC STLMLC Common 11:14:20 Jhonny [id number] [facility] 2022-09-20 2022-09-20 (WEB) STLMLC STLMLC [id number] Co mmon 00:00:00 00:00:00 [facility] 2022-09-19 2022-09-19 (WEB) STLMLC STLMLC [id number] Co mmon 00:00:00 00:00:00 [facility] 2022-09-17 2022-09-17 (WEB) STLMLC STLMLC [id number] Co mmon 00:00:00 00:00:00 [facility] 2022-09-04 2022-09-04 (TEL) STLMLC STLMLC [id number] Co mmon 00:00:00 00:00:00 [facility] 2022-08-12 2022-08-12 OFFICE STLMLC STLMLC [id number] Co mmon 00:00:00 00:00:00 VISIT [facility] LEVEL 4 [facility] 2022-08-08 2022-08-08 (WEB) STLMLC STLMLC [id number] Co mmon 00:00:00 00:00:00 [facility] 2022-08-06 2022-08-06 (TEL) STLMLC STLMLC [id number] Co mmon 00:00:00 00:00:00 [facility] 2022-07-17 2022-07-17 (WEB) STLMLC STLMLC [id number] Co mmon 00:00:00 00:00:00 [facility] 2022-07-02 2022-07-02 OFFICE STLMLC STLMLC [id number] Co mmon 00:00:00 00:00:00 VISIT [facility] PT [facility] 4 [facility] 2022-07-01 2022-07-01 (TEL) STLMLC STLMLC [id number] Co mmon 00:00:00 00:00:00 [facility] 2022-06-25 2022-06-25 (TEL) STLMLC STLMLC [id number] Co mmon 00:00:00 00:00:00 [facility] 2022-06-19 2022-06-19 OFFICE STLMLC STLMLC [id number] Co mmon 00:00:00 00:00:[address] 2022-06-19 2022-06-19 (WEB) STLMLC STLMLC [id number] Co mmon 00:00:00 00:00:00 [facility] 2022-06-17 2022-06-17 (WEB) STLMLC STLMLC [id number] Co mmon 00:00:00 00:00:00 [facility] 2022-06-04 2022-06-04 (WEB) STLMLC STLMLC [id number] Co mmon 00:00:00 00:00:00 [facility] 2022-04-30 2022-04-30 (WELLNESS) STLMLC STLMLC [id number] Common 00:00:00 00:00:00 [facility] 2022-04-08 2022-04-08 (TEL) STLMLC STLMLC [id number] Co mmon 00:00:00 00:00:00 [facility] 2022-04-02 2022-04-02 (WEB) STLMLC STLMLC [id number] Co mmon 00:00:00 00:00:00 [facility] 2022-03-28 2022-03-28 (WEB) STLMLC STLMLC [id number] Co mmon 00:00:00 00:00:00 [facility] 2022-03-28 2022-03-28 (WEB) STLMLC STLMLC [id number] Co mmon 00:00:00 00:00:00 [facility] 2022-03-08 2022-03-08 (WEB) STLMLC STLMLC [id number] Co mmon 00:00:00 00:00:00 [facility] 2022-01-31 2022-01-31 (TEL) STLMLC STLMLC [id number] Co mmon 00:00:00 00:00:00 [facility] 2022-01-11 2022-01-11 OFFICE STLMLC STLMLC [id number] Co mmon 00:00:00 00:00:00 VISIT [facility] 4 [facility] 2022-01-07 2022-01-07 (WEB) STLMLC STLMLC [id number] Co mmon 00:00:00 00:00:00 [facility] 2021-11-12 2021-11-12 (TEL) STLMLC STLMLC [id number] Co mmon 00:00:00 00:00:00 [facility] 2021-09-10 2021-09-10 (WEB) STLMLC STLMLC [id number] Co mmon 00:00:00 00:00:00 [facility] 2021-09-10 2021-09-10 (WEB) STLMLC STLMLC [id number] Co mmon 00:00:00 00:00:00 [facility] 2021-09-06 2021-09-06 (WEB) STLMLC STLMLC [id number] Co mmon 00:00:00 00:00:00 [facility] 2021-09-05 2021-09-05 OFFICE STLMLC STLMLC [id number] Co mmon 00:00:00 00:00:00 VISIT [facility] ESTAB PT - CHI LEVEL 4 [facility] 2021-09-03 2021-09-03 Outpatient R ZACHERY [facility] [id number] Univers 13:15:00 13:44:53 MYRNA ity [facility] 2021-09-03 2021-09-03 Laboratory Only, Ang Db Test [facility] 1.2.8 40.114 [id number] Univers 13:15:00 13:30:00 Only [facility] [id number] ity of [facility] [id number] [place] as LINA?BLEA [phone] [address] MEDICAL OFFICE BUILDING 2021-08-28 2021-08-28 Letter TOM French 1.2.840.114 [id number] Univers 00:00:00 00:00:00 (Out) Evi BUCHANAN [id number] it y of HOSPITAL [id number] [place] as [id number] [facility] [address] 2021-08-27 2021-08-27 Outpatient R [facility]HRY [facility] [id number] Univers 11:30:00 13:11:21 [facility] 2021-08-27 2021-08-27 Laboratory Only, Ang Db Test [facility] 1.2.8 40.114 [id number] Univers 11:30:00 11:45:00 Only Rhonda [employer] [id number] ity of [facility] [id number] [place] as LINA?BLEA [phone] [address] MEDICAL OFFICE BUILDING 2021-08-27 2021-08-27 Orders Doctor SANTOS 1.2.840.114 [id number] Univers 00:00:00 00:00:00 Only Unassigned, CHANEL [id number] ity of [facility] [id number] [place] as [phone] [facility] [address] 2021-07-24 2021-07-24 (WEB) STLC STLC [id number] Co mmon 00:00:00 00:00:00 [facility] - [facility] 2021-07-09 2021-07-09 (TEL) STLMLC STLMLC [id number] Co mmon 00:00:00 00:00:00 [facility] 2021-07-02 2021-07-02 (TEL) STLMLC STLMLC [id number] Co mmon 00:00:00 00:00:00 [facility] 2021-06-05 2021-06-05 OFFICE STLMLC STLMLC [id number] Co mmon 00:00:00 00:00:00 VISIT [facility] 4 [facility] 2021-05-23 2021-05-23 (TEL) STLMLC STLMLC [id number] Co mmon 00:00:00 00:00:00 [facility] 2021-05-23 2021-05-23 (TEL) STLMLC STLMLC [id number] Co mmon 00:00:00 00:00:00 [facility] 2021-04-26 2021-04-26 Outpatient STLMLC STLMLC [id number] Common 00:00:00 00:00:00 [facility] 2021-04-23 2021-04-23 Outpatient STLMLC STLMLC [id number] Common 00:00:00 00:00:00 [facility] 2021-04-23 2021-04-23 Outpatient STLMLC STLMLC [id number] Common 00:00:00 00:00:00 [facility] 2021-04-09 2021-04-09 Outpatient STLMLC STLMLC [id number] Common 00:00:00 00:00:00 [facility] 2021-03-07 2021-03-07 Outpatient STLMLC STLMLC [id number] Common 00:00:00 00:00:00 [facility] 2021-02-21 2021-02-21 Outpatient STLMLC STLMLC [id number] Common 00:00:00 00:00:00 [facility] 2020-12-04 2020-12-04 Outpatient STLMLC STLMLC [id number] Common 00:00:00 00:00:00 [facility] 2020-11-27 2020-11-27 Outpatient STLMLC STLMLC [id number] Common 00:00:00 00:00:00 [facility] 2020-11-02 2020-11-02 Outpatient STLMLC STLMLC [id number] Common 00:00:00 00:00:00 [facility] 2020-10-27 2020-10-27 Outpatient STLMLC STLMLC [id number] Common 00:00:00 00:00:00 [facility] 2020-10-27 2020-10-27 Outpatient STLMLC STLMLC [id number] Common 00:00:00 00:00:00 [facility] 2020-09-04 2020-09-04 Outpatient STLMLC STLMLC [id number] Common 00:00:00 00:00:00 [facility] 2020-07-03 2020-07-03 Outpatient STLMLC STLMLC [id number] Common 00:00:00 00:00:00 [facility] 2020-06-01 2020-06-01 Outpatient STLMLC STLMLC [id number] Common 00:00:00 00:00:00 [facility] 2020-05-23 2020-05-23 Outpatient STLMLC STLMLC [id number] Common 00:00:00 00:00:00 [facility] 2020-03-29 2020-03-29 [address] [facility] [address] [id number] Common 20:18:00 20:18:00 [facility] 2020-03-22 2020-03-22 [facility] [id number] Common 14:09:00 14:09:00 [address] [employer] [address] [facility] 2020-03-02 2020-03-02 Out[facility] [id number] Common 13:43:00 13:43:00 t [employer] [address] [facility] 2020-02-16 2020-02-16 [facility] [id number] Common 14:00:00 14:00:00 t [employer] [address] [facility] 2020-02-04 2020-02-04 [facility] [id number] Common 09:54:00 09:54:00 t [employer] [facility] 2020-01-21 2020-01-21 [facility] [id number] Common 11:45:00 11:45:00 t [employer] [address] [facility] 2019-12-16 2019-12-16 [facility] [id number] Common 12:00:00 12:00:[address] [facility] 2019-12-10 2019-12-10 [facility] [id number] Common 09:40:00 09:40:[address] [facility] 2019-12-09 2019-12-09 [facility] [id number] Common 08:39:00 08:39:00 t [employer] [address] [facility] 2019-12-07 2019-12-07 [facility] [id number] Common 09:40:00 09:40:[address] [facility] 2019-12-03 2019-12-03 [facility] [id number] Common 08:40:00 08:40:00 t [employer] [address] [facility] 2019-12-02 2019-12-02 [facility] [id number] Common 10:04:00 10:04:00 t [employer] [address] [facility] 2019-12-02 2019-12-02 [facility] [id number] Common 10:02:00 10:02:[address] [facility] 2019-12-01 2019-12-01 [facility] [id number] Common 14:00:00 14:00:[address] [facility] 2019-12-01 2019-12-01 [facility] [id number] Common 10:15:00 10:15:00 t [employer] [facility] 2019-11-24 2019-11-24 [facility] [id number] Common 11:30:00 11:30:00 t [employer] [employer] [facility] 2019-11-22 2019-11-22 [facility] [id number] Common 10:52:00 10:52:00 t [address] [facility] 2019-11-19 2019-11-19 [facility] [id number] Common 10:35:00 10:35:00 t [employer] [employer] [facility] 2019-11-19 2019-11-19 [facility] [id number] Common 10:20:00 10:20:[address] [facility] [address] [facility] 2019-11-18 2019-11-18 [facility] [id number] Common 15:52:00 15:52:00 t [employer] [facility] 2019-11-16 2019-11-16 [facility] [id number] Common 16:00:00 16:00:00 t [employer] [employer] [facility] 2019-08-17 2019-08-17 [facility] [id number] Common 16:15:00 16:15:00 t [employer] [facility] 2019-08-09 2019-08-09 [facility] [id number] Common 16:14:00 16:14:00 t [employer] [facility] 2019-05-12 2019-05-12 Out[facility] [id number] Common 16:45:00 16:45:00 t [employer] [employer] [facility] 2019-04-20 2019-04-20 [facility] [id number] Common 10:45:00 10:45:00 t [employer] [employer] [facility] 2019-03-05 2019-03-05 [facility] [id number] Common 13:53:00 13:53:00 t [employer] [facility] 2019-01-05 2019-01-05 Out[facility] [id number] Common 16:14:00 16:14:00 t [employer] [facility] 2018-12-29 2018-12-29 [facility] [id number] Common 16:30:00 16:30:00 t [address]ager [address] [facility] Results This patient has no known results.
[2022-10-28] MEDS ORDERED: PANTOPRAZOLE 40 MG INJ ONE (12:07)
[2022-10-28] MEDS ORDERED: NA CHLORIDE 0.9% 1,000 ML ONE (12:07)
[2022-10-28 12:48] LABS: Absolute Lymphocytes (CBC) 3.8 K/uL (0.7-4.9); Hematocrit 33.8 % (36.0-45.0); Lymphocytes % 44.6 % (15.3-44.8); MCV 83.2 fL (80-100); Protime INR 0.91; RBC Red Blood Cell Count 4.06 M/uL (3.86-4.86)
[2022-10-28 13:01] LABS: Albumin 4.2 g/dL (3.4-5.0); Bilirubin Total 0.8 mg/dL (0.2-1.0); Potassium 4.2 mmol/L (3.5-5.1); Protein, Total 7.3 g/dL (6.4-8.2)
[2022-10-28 13:09] LABS: Urine Blood Negative (Negative); Urine Glucose Negative (Negative); Urine Protein Negative (Negative); Urine Specific Gravity <=1.005 (1.005-1.030); Urine pH 5.5 (5.0-7.0)
[2022-10-28 13:25] LABS: Urine Bacteria <20 /HPF (<20); Urine RBC <5 /HPF (None Seen)
--- NOTE | 2022-10-28 14:25 | RAD REPORT ---
EXAM DESCRIPTION: CT - Abdomen Pelvis W Contrast - 10/28/2022 1:23 pm CLINICAL HISTORY: LOWER GI BLEED COMPARISON: CT ABD PELVIS W CONTRAST dated 09/04/2012 TECHNIQUE: Thin cut axial CT imaging of the abdomen and pelvis was performed following intravenous a dministration of 100 Isovue 300. Multiplanar reformats were generated and reviewed. All CT scans are performed using dose optimization technique as appropriate and may include automated exposure control or mA/KV adjustment according to patient size. FINDINGS: No suspicious findings in the lung bases. The liver, spleen, and pancreas show no suspicious findings. Status post cholecystectomy. No evidence of intra or extrahepatic biliary ductal dilation. Symmetric renal function is seen with no hydronephrosis or suspicious renal mass. 2-3 millimeter nono bstructing calculus at the left lower renal pole. No dilated bowel loops or bowel wall thickening. Mild colonic diverticulosis. Serpiginous radiodense material is seen layering along the right dependent aspect of the rectal bulb, suggestive of extravasated contrast. No free air, free fluid or inflammatory stranding. No hernia, m ass or bulky lymphadenopathy. The urinary bladder is without significant finding. No suspicious bony findings. Degenerative lumbar spine changes, with a mild degree of scoliosis at L2 -3. IMPRESSION: Serpiginous intraluminal contrast along the rectal bulb, without a discrete mass or abno rmal vascular enhancement pattern. Findings may relate to underlying angiodysplasia, among other cons iderations. Other incidental findings as above, including a nonobstructing left lower pole 2-3 millimeter renal c alculus. The findings were communicated to Hi Dumont on 10/28/2022 at 14:21 hours.
--- NOTE | 2022-10-28 15:01 | ER ---
Nurse's Notes [facility] Name: Franchesca Hughes Age: 62 yrs Sex: Female : 1960 Arrival Date: 10/28/2022 Time: 11:28 Bed 24 Private MD: Jhonny Shaffer Diagnosis: Rectal bleeding Presentation: 10/28 12:00 Chief complaint: Patient states: Bloody loose stools on Friday. Stopped and then sg5 started again at 3 AM ongoing since. Complains of right lower quadrant pain 12/09. Coronavirus screen: Vaccine status: Patient reports receiving the 2nd dose of the covid vaccine. At this time, the client does not indicate any symptoms associated with coronavirus-19. Ebola Screen: No symptoms or risks identified at this time. Initial Sepsis Screen: Does the patient meet any 2 criteria? No. Patient's initial sepsis screen is negative. Does the patient have a suspected source of infection? No. Patient's initial sepsis screen is negative. Risk Assessment: Do you want to hurt yourself or someone else? Patient reports no desire to harm self or others. Onset of symptoms was October 28, 2022. 12:00 Method Of Arrival: Ambulatory sg5 12:00 Acuity: MARIELENA 3 sg5 Triage Assessment: 12:11 General: Appears comfortable, Behavior is calm, cooperative, appropriate for age. Pain: sg5 Complains of pain in abdomen Pain currently is 4 out of 10 on a pain scale. Cardiovascular: No deficits noted. Respiratory: No deficits noted. GI: Abdomen is non-distended, Reports lower abdominal pain. Historical: - Allergies: 12:11 Codeine; sg5 - Home Meds: 12:11 Diovan Oral [Active]; Fish Oil Oral [Active]; Metformin Oral [Active]; Simvastatin Oral sg5 [Active]; Strattera Oral [Active]; valsartan Oral [Active]; - PMHx: 12:11 ADD/ADHD; Diabetes - NIDDM; High Cholesterol; Hypertension; sg5 - Immunization history:: Adult Immunizations up to date, Client reports receiving the 2nd dose of the Covid vaccine, Last tetanus immunization: unknown, Flu vaccine is up to date. - Social history:: Smoking status: Patient denies any tobacco usage or history of. Screenin:28 [facility] ED Fall Risk Assessment (Adult) History of falling in the last 3 months, mb9 including since admission No falls in past 3 months (0 pts) Confusion or Disorientation No (0 pts) Intoxicated or Sedated No (0 pts) Impaired Gait No (0 pts) Mobility Assist Device Used No (0 pt) Altered Elimination No (0 pt) Score/Fall Risk Level 0 - 2 = Low Risk Oriented to surroundings, Maintained a safe environment, Educated pt \\T\\ family on fall prevention, incl call for assistance when getting out of bed. Abuse screen: Denies threats or abuse. Nutritional screening: No deficits noted. Tuberculosis screening: No symptoms or risk factors identified. Assessment: 12:03 Reassessment: pt brought back to ER room. mb9 12:26 General: Appears in no apparent distress. Behavior is calm, cooperative. Pain: mb9 Complains of pain in right lower quadrant Pain radiates to left lower quadrant Quality of pain is described as crampy. Neuro: [place] Agitation-Sedation Scale (RASS): 0 - Alert and Calm Level of Consciousness is awake, alert, obeys commands, Oriented to person, place, time, situation, Appropriate for age. Cardiovascular: Heart tones S1 S2 present Capillary refill < 3 seconds is > 3 seconds. Respiratory: Airway is patent Respiratory effort is even, unlabored, Respiratory pattern is regular, symmetrical, Breath sounds are clear bilaterally. GI: Abdomen is round Bowel sounds present X 4 quads. Abd is soft Abdomen is tender to palpation in right lower quadrant and left lower quadrant Reports bloody stool, "diarrhea that is dark red and has some clots in it". Derm: Skin is pink, warm \\T\\ dry. Musculoskeletal: Range of motion: intact in all extremities. 13:11 Reassessment: pt taken to CT via wheelchair. mb9 14:29 Reassessment: No changes from previously documented assessment. Patient and/or family mb9 updated on plan of care and expected duration. Pain level reassessed. Patient is alert, oriented x 3, equal unlabored respirations, skin warm/dry/pink. 15:05 Reassessment: Gave report to HOSSEIN Renee. Pt taken to OR. mb9 Vital Signs: 12:00 BP 134 / 71; Pulse 84; Resp 16; Temp 98.0; Pulse Ox 100% on R/A; Weight 81.65 kg; sg5 Height 5 ft. 7 in. (170.18 cm); Pain 4/10; 12:28 BP 138 / 64; Pulse 98; Resp 18; Pulse Ox 100% on R/A; mb9 13:33 BP 141 / 64; Pulse 84; Resp 16; Pulse Ox 99% ; mb9 12:00 Body Mass Index 28.19 (81.65 kg, 170.18 cm) sg5 ED Course: 11:28 Patient arrived in ED. am2 11:28 Jhonny Shaffer DO is Private Physician. am2 11:30 Arianna Machado FNP is PHCP. jh7 11:30 Kenroy Petit DO is Attending Physician. jh7 12:01 Yesenia Moran, HOSSEIN is Primary Nurse. mb9 12:11 Triage completed. sg5 12:11 Arm band placed on right wrist. sg5 12:15 Inserted saline lock: 22 gauge in right antecubital area, using aseptic technique. mb9 Blood collected. 12:26 CBC with Diff Sent. mb9 12:26 CMP Sent. mb9 12:26 Lipase Sent. mb9 12:26 Urine Microscopic Only Sent. mb9 12:28 Placed in gown. Bed in low position. Call light in reach. Side rails up X 1. Client mb9 placed on continuous cardiac and pulse oximetry monitoring. NIBP monitoring applied. 12:29 No provider procedures requiring assistance completed. mb9 13:24 CT Abd/Pelvis - IV Contrast Only In Process Unspecified. EDMS 14:59 Aron Jimenez is Hospitalizing Provider. jh7 15:14 Patient admitted, IV remains in place. mb9 Administered Medications: 12:15 Drug: NS 0.9% 1000 ml Route: IV; Rate: 1 bolus; Site: right antecubital; mb9 14:38 Follow up: Response: No adverse reaction; IV Status: Completed infusion mb9 12:15 Drug: ProTONIX (pantoprazole) 40 mg Route: IVP; Site: right antecubital; mb9 13:03 Follow up: Response: No adverse reaction mb9 Medication: 12:29 VIS not applicable for this client. mb9 Outcome: 15:00 Decision to Hospitalize by Provider. jh7 15:14 Admitted to OR accompanied by nurse, via stretcher. mb9 15:14 Condition: stable 15:14 Instructed on the need for admit. 15:14 Patient left the ED. mb9 Signatures: Dispatcher [employer] EDMS Lindsay Dozier am2 Arianna Machado, KNITTING DEMONSTRATOR KNITTING DEMONSTRATOR jh7 Yesenia Moran RN RN mb9 Codie Martínez RN RN sg5 Corrections: (The following items were deleted from the chart) 13:33 12:28 BP 138 / 64; Pulse 98bpm; Resp 88bpm; Pulse Ox 100% RA; jason9 mb9
--- NOTE | 2022-10-28 15:01 | EDPHYS ---
Physician Documentation [facility] Name: Franchesca Hughes Age: 62 yrs Sex: Female : 1960 Arrival Date: 10/28/2022 Time: 11:28 Bed 24 Private MD: Edmund [facility] ED Physician Kenroy Petit HPI: 10/28 11:45 This 62 yrs old Female presents to ER via Unassigned with complaints of Rectal Bleeding.jh7 11:45 The patient presents to the emergency department with bleeding from the rectum/anus, jh7 that is moderate. Onset: The symptoms/episode began/occurred 2 day(s) ago. Associate signs and symptoms: Pertinent positives: diarrhea, Pertinent negatives: constipation. 62-year-old female presents to the ER complaining of loose stools and rectal bleeding since Friday. She states that she had a colonoscopy on Friday with Dr. Eason and was normal with the exception of 2 polyps being removed. She reports that the loose stools started late Friday night and that she has bright red blood only when having a bowel movement. She reports a history of 2 external hemorrhoids but saw her BOOKING PRIZER today who stated that her hemorrhoids were not bleeding, and that it seemed to be internal bleeding. She reports discomfort in her lower abdomen but denies any nausea or vomiting.. Historical: - Allergies: 12:11 Codeine; sg5 - Home Meds: 12:11 Diovan Oral [Active]; Fish Oil Oral [Active]; Metformin Oral [Active]; Simvastatin Oral sg5 [Active]; Strattera Oral [Active]; valsartan Oral [Active]; - PMHx: 12:11 ADD/ADHD; Diabetes - NIDDM; High Cholesterol; Hypertension; sg5 - Immunization history:: Adult Immunizations up to date, Client reports receiving the 2nd dose of the Covid vaccine, Last tetanus immunization: unknown, Flu vaccine is up to date. - Social history:: Smoking status: Patient denies any tobacco usage or history of. ROS: 11:45 Constitutional: Negative for fever, chills, and weight loss, Eyes: Negative for injury, jh7 pain, redness, and discharge, Neck: Negative for injury, pain, and swelling, Cardiovascular: Negative for chest pain, palpitations, and edema, Respiratory: Negative for shortness of breath, cough, wheezing, and pleuritic chest pain, Back: Negative for injury and pain, MS/Extremity: Negative for injury and deformity, Skin: Negative for injury, rash, and discoloration, Neuro: Negative for headache, weakness, numbness, tingling, and seizure. 11:45 Abdomen/GI: Positive for diarrhea, abdominal cramps, rectal bleeding, Negative for nausea and vomiting, constipation. 11:45 All other systems are negative. Exam: 11:45 Constitutional: This is a well developed, well nourished patient who is awake, alert, jh7 and in no acute distress. Head/Face: Normocephalic, atraumatic. Eyes: Pupils equal round and reactive to light, extra-ocular motions intact. Lids and lashes normal. Conjunctiva and sclera are non-icteric and not injected. Cornea within normal limits. Periorbital areas with no swelling, redness, or edema. Cardiovascular: Regular rate and rhythm with a normal S1 and S2. No gallops, murmurs, or rubs. Normal PMI, no JVD. No pulse deficits. Respiratory: Lungs have equal breath sounds bilaterally, clear to auscultation and percussion. No rales, rhonchi or wheezes noted. No increased work of breathing, no retractions or nasal flaring. Back: No spinal tenderness. No costovertebral tenderness. Full range of motion. Skin: Warm, dry with normal turgor. Normal color with no rashes, no lesions, and no evidence of cellulitis. MS/ Extremity: Pulses equal, no cyanosis. Neurovascular intact. Full, normal range of motion. Neuro: Awake and alert, GCS 15, oriented to person, place, time, and situation. Motor strength 5/5 in all extremities. Sensory grossly intact. Normal gait. 11:45 Abdomen/GI: Inspection: abdomen appears normal, Bowel sounds: normal, Palpation: soft, mild abdominal tenderness, in the right lower quadrant and left lower quadrant. Vital Signs: 12:00 BP 134 / 71; Pulse 84; Resp 16; Temp 98.0; Pulse Ox 100% on R/A; Weight 81.65 kg; sg5 Height 5 ft. 7 in. (170.18 cm); Pain 4/10; 12:28 BP 138 / 64; Pulse 98; Resp 18; Pulse Ox 100% on R/A; mb9 13:33 BP 141 / 64; Pulse 84; Resp 16; Pulse Ox 99% ; mb9 12:00 Body Mass Index 28.19 (81.65 kg, 170.18 cm) sg5 MDM: 11:30 Patient medically screened. [facility] 14:33 ED course: Consult to Dr. Eason. Regarding patient condition and CT results. Will [facility] await his return call.. 14:40 Differential diagnosis: hemorrhoids, fissure, GI bleed, complications post polyp 7 removal. Data reviewed: vital signs, nurses notes, lab test result(s), radiologic studies, CT scan. Consideration of Admission/Observation Patient was admitted/placed on observation. Management of patient was discussed with the following: Hospitalist: Dr. Jimenez. Lead Cargo Mover: Dr. Eason, grain elevator clerk. Care significantly affected by the following chronic conditions: Diabetes, Hypertension. Counseling: I had a detailed discussion with the patient and/or guardian regarding: the historical points, exam findings, and any diagnostic results supporting the discharge/admit diagnosis, the need for further work-up and treatment in the hospital. ED course: Spoke to Dr. Eason who stated that he would see the patient in the OR. Confirmed that she had not eaten anything since last night. Will admit to medicine.. 10/28 11:44 Order name: CBC with Diff; Complete Time: 12:54 [facility] 10/28 11:44 Order name: CMP; Complete Time: 13:05 [facility] 10/28 11:44 Order name: Lipase; Complete Time: 13:05 [facility] 10/28 11:44 Order name: Urine Microscopic Only; Complete Time: 13:26 [facility] 10/28 11:44 Order name: PT-INR; Complete Time: 12:54 [facility] 10/28 11:44 Order name: Type And Screen [facility] 10/28 11:44 Order name: CT Abd/Pelvis - IV Contrast Only; Complete Time: 14:27 [facility] 10/28 11:44 Order name: IV Saline Lock; Complete Time: 12:26 [facility] 10/28 11:44 Order name: Labs collected and sent; Complete Time: 12:26 [facility] 10/28 13:10 Order name: Urine Dipstick-Ancillary; Complete Time: 13:25 EDAK 10/28 14:32 Order name: SARS RAPID [facility] 10/28 14:44 Order name: ABO/RH no charge; Complete Time: 15:20 EDMS 10/28 11:44 Order name: Urine Dipstick-Ancillary (obtain specimen); Complete Time: 13:03 jh7 10/28 14:18 Order name: Labs - recollect needed: collect abo/rh; Complete Time: 14:28 bd Administered Medications: 12:15 Drug: NS 0.9% 1000 ml Route: IV; Rate: 1 bolus; Site: right antecubital; mb9 14:38 Follow up: Response: No adverse reaction; IV Status: Completed infusion mb9 12:15 Drug: ProTONIX (pantoprazole) 40 mg Route: IVP; Site: right antecubital; mb9 13:03 Follow up: Response: No adverse reaction mb9 Disposition: 16:34 Co-signature as Attending Physician, Kenroy Petit DO I was immediately available on-site ms3 in the Emergency Department for consultation in the care of the patient. Disposition Summary: 10/28/22 15:00 Hospitalization Ordered Hospitalization Status: Observation [facility] Provider: Aron Jimenez [facility] Location: DAY SURGERY OTHER [facility] Condition: Stable [facility] Problem: new [facility] Symptoms: have worsened [facility] Bed/Room Type: [place] [address] Room Assignment: [facility] Diagnosis - Rectal bleeding [facility] Forms: - Medication Reconciliation Form [facility] - SBAR form [facility] Signatures: Dispatcher [employer] EDLesly Azul Marcus, DO DO ms3 Arianna Machado FNP SALESFORCE TRAINER [facility] Yesenia Moran RN RN mb9 Codie Martínez RN RN sg5
[2022-10-28] MEDS ORDERED: NA CHLORIDE 0.9% 500 ML ONE (15:24)
[2022-10-28 15:26] LABS: SARS-CoV-2 Antigen Rapid Res Negative (Negative)
[2022-10-28] MEDS ORDERED: EPINEPHRINE/PF 1 MG/ML AMP ONE (15:26)
[2022-10-28] MEDS ORDERED: propofoL 200 MG/20 ML VIAL IV ONE (15:35)
[2022-10-28] MEDS ORDERED: ACETAMINOPHEN 325 MG TABLET PO PRN (16:43)
[2022-10-28] MEDS ORDERED: ONDANSETRON 4 MG/2 ML VIAL IV PRN (16:45)
[2022-10-28] MEDS ORDERED: GLUCAGON 1 MG/VIAL IM PRN (16:47)
[2022-10-28] MEDS ORDERED: D50W 25 GM/50 ML SYRINGE IV PRN ×2 (16:47→17:06)
[2022-10-28] MEDS ORDERED: LABETALOL 20 MG/4ML SYRINGE IV PRN (16:50)
--- NOTE | 2022-10-28 16:51 | P.HP ---
Certification for Inpatient Patient admitted to: Observation With expected LOS: <2 Midnights Patient will require the following post-hospital care: None Practitioner: I am a practitioner with admitting privileges, knowledge of patient current condition, hospital course, and medical plan of care. Services: Services provided to patient in accordance with Admission requirements found in Title 42 Section 412.3 of the Code of Federal Regulations Patient History Date of Service: 10/28/22 Reason for admission: Rectal bleeding History of Present Illness: Patient is a 62-year-old female with a past medical history significant for DM 2, hyperlipidemia, hypertension who presents with complaint of rectal bleeding. Patient reported that she had a colonoscopy 5 days ago with her flight test shop mechanic and 2 polyps were removed. Patient reported that she started bleeding yesterday. Patient reported associated signs and symptoms of fatigue, weakness and dizziness. Patient denies any other signs or symptoms. Symptoms are aggravated or relieved by nothing. Patient decided to present to the hospital due to worsening symptoms. Allergies codeine Allergy (Verified 10/21/22 08:26) Itching/Hives/Rash Home Medications: Aspirin [Aspirin EC 81 MG] 81 mg PO DAILY #30 tablet. 10/26/20 Atomoxetine HCl 100 mg PO DAILY 10/26/20 Atorvastatin Calcium [Lipitor*] 20 mg PO BEDTIME #30 tab 10/26/20 Cholecalciferol (Vitamin D3) [Vitamin D3] 2,000 iu PO DAILY 10/26/20 Clopidogrel Bisulfate [Plavix] 75 mg PO DAILY #30 tablet 10/26/20 Irbesartan 150 mg PO DAILY 10/26/20 Magnesium Oxide [Magnesium] 500 mg PO DAILY 10/26/20 Metoprolol Succinate 100 mg PO DAILY 10/26/20 Pregabalin 75 mg PO BID 10/26/20 Flaxseed/Omega3,6,9/Fatty Acid [Flax Seed Oil 1,300 mg Softgel] 1,400 mg PO DAILY 10/21/22 Glipizide [Glipizide ER] 5 mg PO DAILY 10/21/22 Mecobalamin [B12 Active] 1,000 mcg PO DAILY 10/21/22 [place]-3/Dha/Epa/Fish Oil [Fish Oil 1,400 mg Softgel] 1 each PO BID 10/21/22 Tumeric/Ging/[place]/Oreg/Capryl [Candicidal Capsule] 1 each PO BID 10/21/22 Home Med 1 cap PO DAILY 10/28/22 Lacto19/Bifido/L.lactis/P.acid [Jarro-Dophilus Eps 5B Cell Cap] 1 each PO DAILY 10/28/22 Lysine 100 mg PO PRN 10/28/22 Metformin HCl [Metformin HCl ER] 750 mg PO BID 10/28/22 Vit No.179/Iron/Folic [ Tablet] 1 each PO DAILY 10/28/22 Zinc Gluconate [Zinc] 50 mg PO DAILY 10/28/22 - Past Medical/Surgical History Diabetic: Yes -: sinus infection -: neuropathy -: cholecystectomy - Family History Father -: Lung disease, Diabetes Mother -: Hypertension, Other (see notes) Notes: varicose veins - Social History Smoking Status: Never smoker Alcohol use: Yes CD- Drugs: No Caffeine use: Yes Place of Residence: Home Review of Systems General: Weakness, Other (Fatigue) Eyes: Unremarkable ENT: Unremarkable Respiratory: Unremarkable Cardiovascular: Unremarkable Gastrointestinal: Unremarkable Genitourinary: Unremarkable Musculoskeletal: Unremarkable Integumentary: Unremarkable Neurological: Other (Dizziness) Lymphatics: Unremarkable Physical Examination - Vital Signs Temperature: 97.0 F Blood Pressure: 139/77 Pulse: 80 Respirations: 16 - Physical Exam General: Alert, In no apparent distress, Oriented x3, Cooperative HEENT: Atraumatic, PERRLA, Mucous membr. moist/pink, EOMI, Sclerae nonicteric Neck: Supple, 2+ carotid pulse no bruit, No LAD, Without JVD or thyroid abnormality Respiratory: Clear to auscultation bilaterally, Normal air movement Cardiovascular: No edema, Regular rate/rhythm, Normal S1 S2 Capillary refill: <2 Seconds Gastrointestinal: Normal bowel sounds, Soft and benign Musculoskeletal: No clubbing, No swelling, No tenderness Integumentary: No rashes, No breakdown, No significant lesion Neurological: Normal speech, Normal tone, Normal affect Lymphatics: No axilla or inguinal lymphadenopathy - Studies Laboratory Data (last 24 hrs) 10/28/22 12:16: PT 10.0, INR 0.91 10/28/22 12:16: Sodium 132 L, Potassium 4.2, BUN 24 H, Creatinine 0.91, Glucose 215 H, Total Bilirubin 0.8, AST 12 L, ALT 34, Alkaline Phosphatase 69, Lipase 98 H 02/27/23 12:16: WBC 8.50, Hgb 11.4 L, Hct 33.8 L, Plt Count 335 Assessment and Plan - Plan --Gastrointestinal bleeding. Patient placed on Protonix. Gastroenterology consulted. GI MD Plans to take patient to the OR. H&H is stable. We will continue to monitor hemoglobin and transfuse if less than 7.0. --DM2 with neuropathy. BS monitoring with sliding scale insulin. Continue Lyr ica for neuropathy. --Hypertension. Poorly controlled. Continue home medications and labetalol as needed. --Hyperlipidemia. Continue statin. --CKD 2. Stable. We will continue to monitor renal functions. --DVT prophylaxis with SCDs. Discharge Plan: Home Plan to discharge in: 48 Hours - Advance Directives Does patient have a Living Will: No Does patient have a Durable POA for Healthcare: No - Code Status/Comfort Care Code Status Assessed: Yes Physician Review: Patient Assessed, Agree with Above Assessment and Plan Critical Care: No
[2022-10-28] MEDS ORDERED: D10W 250 ML BAG IV PRN (17:06)
[2022-10-28] MEDS ORDERED: SODIUM CHLORIDE 0.9% 10ML INJ IV PRN (17:13)
[2022-10-28 18:30] VITALS: BMI 28.1
[2022-10-28 20:05] LABS: Absolute Lymphocytes (CBC) 3.6 K/uL (0.7-4.9); Hematocrit 28.8 % (36.0-45.0); Lymphocytes % 36.2 % (15.3-44.8); MCV 83.2 fL (80-100); MPV 8.5 fL (7.6-11.3); RBC Red Blood Cell Count 3.46 M/uL (3.86-4.86)
--- NOTE | 2022-10-28 21:14 | CON ---
Date of Consultation: 10/28/2022 Reason For Consultation: Hematochezia, status post proctectomy. History Of Present Illness: Patient is a 62-year-old white female with history of diabetes, hyperten monica, hyperlipidemia, ADHD, and cholecystectomy. The patient presented to hospital with hematochezia over the past 2 days. Since Friday morning at 3:00 a.m., she awoke and started having bloody stools all day Friday, and then today, came to emergency room for further evaluation and care. She had a c olonoscopy last Friday, 5 days ago, and bleeding did not start until Friday morning at 3:00 a.m. She denies any melena, hematemesis, coffee-grounds emesis, hematuria, dysuria, polydipsia, chest pain , shortness of breath, palpitations. She did say when standing she feels lightheaded and somewhat di zzy. Past Medical History: Significant for diabetes, hypertension, hyperlipidemia, ADHD, and laparoscopic cholecystectomy approximately 1991. She also has a history of sinus infection and neuropathy. Medications: At home include acyclovir, aspirin, atomoxetine, Lipitor, vitamin D3, Plavix which she has not taken for 2 weeks she states, irbesartan, magnesium, metformin, Toprol, niacin, pregabalin, p renatal vitamins, simvastatin, prednisone. Allergies: CODEINE. Social History: She is , 2 children. No tobacco. Occasional alcohol. Family History: Father alive with bladder cancer. Mother alive with hypertension, hypercholesterole steven. Review of Systems: The patient has hematochezia, lightheadedness when she stands with no melena, hematochezia, coffee-gr ounds emesis, hemoptysis, epistaxis, hematuria, dysuria, polydipsia, chest pain, shortness of breath, seizures, syncope. She does have fatigue and lightheadedness when she stands up though. No depress ion, anxiety, muscle aches, joint aches, backaches. Physical Examination: Vital Signs: The patient has temperature 98 degrees Fahrenheit, pulse 84, respirations 16, blood pre ssure 141/64, O2 saturation 99% to 100% on room air. General: She is somewhat mildly obese female lying in bed, in no acute distress. HEENT: Normocephalic, atraumatic. Anicteric. Pupils equal, round, and reactive to light. Extraocu lar movements are intact. Oropharynx clear. Neck: Supple. No masses. Respirations: Clear to auscultation bilaterally. Cardiac: Regular rate and rhythm. Gastrointestinal: Positive bowel sounds. Soft, nontender, nondistended. No hepatosplenomegaly. Extremities: No clubbing, cyanosis, or edema. 2+ pulses. Neuro: Alert and oriented x3. Grossly nonfocal. 5/5 motor. Sensation intact to light touch. Laboratory Data: Today, the patient has a white count of 8.5. Hemoglobin 11.4, baseline. It is jose roximately most recently on , 2 days ago, it was 12.3. In 2016, it was 13.0, 13.7 mostly baselin e, so she is approximately 1-2 points off her baseline. Today, she has a hematocrit 33.8, MCV of 83, platelet count of 335, polys of 40%, lymphocytes 45%, monocytes 6%, eosinophils 1%. Prothrombin brian e of 10.0, INR 0.91. The patient has a sodium 132, potassium 4.2, chloride 99, bicarb of 27, creatin ine of 0.91, BUN of 24, glucose 215. AST of 12, calcium 8.9, total bilirubin 0.8, ALT of 34, alkalin e phosphatase 69, total protein 7.3, albumin 4.2, lipase 98. UA today was negative. COVID-19 testin g was negative. She had a CT scan of the abdomen and pelvis which reveal serpiginous intraluminal co ntrast along the rectal wall without discrete mass or abnormal enhancement. Findings relate to under lying angiodysplasia considerations. There is a 2-3 mm rectal calculus in the left lower pole, otherwise negative. Impression: 1.Hematochezia since Friday, 2 days ago. It started at 3:00 a.m. Friday morning and that was approx imately 4 days after a colonoscopy with polypectomy on Friday. The patient denies any Plavix rece ntly. She says last Plavix was at least 2 weeks ago. She plans on going on a trip to [place] in 2 d ays on Friday. 2.History of diabetes, hypertension, hyperlipidemia, ADHD, and cholecystectomy in 1991. Recommendation: 1.Urgent colonoscopy now. 2.Serial H and H, transfuse p.r.n. 3.IV fluids. 4.Keep patient n.p.o. EDY/CHARI Voice ID: [id number] Report ID: [id number]
[2022-10-28 21:23] LABS: Blood Morphology Comment NOTED (NOT SEEN); Platelet Estimate ADEQ; Poikilocytosis 1+
[2022-10-28] MEDS: PANTOPRAZOLE 40 MG INJ IVP SCH (21:38)
[2022-10-28] MEDS: INSULIN -REGULAR HUMAN 50 UNIT/0.5 ML ML SQ SCH (21:38)
[2022-10-28 21:47] LABS: Magnesium 1.9 mg/dL (1.6-2.4); Phosphorus 2.8 mg/dL (2.5-4.9); Thyroid Stimulating Hormone 0.956 uIU/mL (0.358-3.740)
[2022-10-29] MEDS ORDERED: NA CHLORIDE 0.9% 500 ML IV ONE (01:40)
[2022-10-29 03:40] LABS: Protime INR 1.01
[2022-10-29 03:59] LABS: Bilirubin Total 0.4 mg/dL (0.2-1.0); Potassium 3.8 mmol/L (3.5-5.1); Protein, Total 5.3 g/dL (6.4-8.2)
[2022-10-29 08:13] LABS: Hematocrit 25.6 % (36.0-45.0); MCV 84.2 fL (80-100); MPV 8.7 fL (7.6-11.3); RBC Red Blood Cell Count 3.04 M/uL (3.86-4.86)
[2022-10-29 08:28] LABS: Potassium 4.4 mmol/L (3.5-5.1)
[2022-10-29] MEDS: INSULIN -REGULAR HUMAN 50 UNIT/0.5 ML ML SQ SCH ×3 (09:15→16:26)
[2022-10-29] MEDS: PANTOPRAZOLE 40 MG INJ IVP SCH (09:15)
[2022-10-29 12:40] VITALS: TEMP 97.2
[2022-10-29 12:45] LABS: Hematocrit 26.2 % (36.0-45.0)
[2022-10-29] MEDS ORDERED: NA CHLORIDE 0.9% 250 ML ONE (13:48)
[2022-10-29 14:27] VITALS: O2SAT 99
[2022-10-29 16:45] VITALS: BP 121/52
--- NOTE | 2022-10-29 20:18 | P.DS ---
Admission Date: 10/28/22 Discharge Date: 10/29/22 Disposition: ROUTINE DISCHARGE Discharge Condition: GOOD Reason for Admission: Rectal bleeding Consultations: Dr. Eason Brief History of Present Illness: 62-year-old female with a past medical history significant for DM 2, hyperlipidemia, hypertension who presents with complaint of rectal bleeding. Patient reported that she had a colonoscopy 5 days ago with her hvac operations technician and 2 polyps were removed. Patient reported that she started bleeding yesterday. Patient reported associated signs and symptoms of fatigue, weakness and dizziness. Hospital Course: Problem List: lower GI bleed secondary to ulcer acute blood loss anemia HTN Patient presented with rectal bleed after polypectomy. She underwent colonoscopy by Dr. Eason during this admission, noted to have a bleeding ulcer and underwent clipping successfully. Post-operatively, she had mild drop in her hemoglobin to mid 8s. She was given 1u PRBC, no further bright red bleeding, felt much better, and was deemed stable for discharge home. Follow up with Dr. Eason in ~2-3 weeks. Blood pressure was in the low to low-normal range. Blood pressure medication (irbesartan) was held. Resume metoprolol Recommended restarting blood pressure medication stepwise when blood pressure is back into the 140s systolic or above. Resume aspirin/plavix as previously instructed by Dr. Eason in regards to timing of colonoscopy. Vital Signs/Physical Exam: Temp Pulse Resp BP Pulse Ox 97.2 F 89 16 121/52 L 99 10/29/22 16:00 10/29/22 16:00 10/29/22 16:00 10/29/22 16:00 10/29/22 16:00 General: Alert, In no apparent distress, Oriented x3, Cooperative HEENT: EOMI, Sclerae nonicteric Respiratory: Clear to auscultation bilaterally, Normal air movement Cardiovascular: No edema, Regular rate/rhythm Gastrointestinal: Soft and benign, No tenderness Integumentary: No rashes, No significant lesion Neurological: Normal speech, Normal affect Laboratory Data at Discharge: WBC 7.30 K/uL (4.3-10.9) 10/29/22 07:41 Hgb 8.8 g/dL (12.0-15.0) L 10/29/22 12:38 Hct 26.2 % (36.0-45.0) L 10/29/22 12:38 Plt Count 264 K/uL (152-406) 10/29/22 07:41 PT 11.1 SECONDS (9.5-12.5) 10/29/22 03:03 INR 1.01 10/29/22 03:03 Sodium 138 mmol/L (136-145) 10/29/22 07:41 Potassium 4.4 mmol/L (3.5-5.1) D 10/29/22 07:41 BUN 16 mg/dL (7-18) 10/29/22 07:41 Creatinine 0.71 mg/dL (0.55-1.02) 10/29/22 07:41 Glucose 196 mg/dL (74-106) H 10/29/22 07:41 Phosphorus 2.8 mg/dL (2.5-4.9) 10/28/22 20:53 Magnesium 1.9 mg/dL (1.6-2.4) 10/28/22 20:53 Total Bilirubin 0.4 mg/dL (0.2-1.0) 10/29/22 03:03 AST 7 U/L (15-37) L 10/29/22 03:03 ALT 24 U/L (13-56) 10/29/22 03:03 Alkaline Phosphatase 50 U/L (45-117) D 10/29/22 03:03 Lipase 98 U/L (13-75) H 10/28/22 12:16 Home Medications: Aspirin [Aspirin EC 81 MG] 81 mg PO DAILY #30 tablet. 10/26/20 Atomoxetine HCl 100 mg PO DAILY 10/26/20 Atorvastatin Calcium [Lipitor*] 20 mg PO BEDTIME #30 tab 10/26/20 Cholecalciferol (Vitamin D3) [Vitamin D3] 2,000 iu PO DAILY 10/26/20 Clopidogrel Bisulfate [Plavix] 75 mg PO DAILY #30 tablet 10/26/20 Irbesartan 150 mg PO DAILY 10/26/20 Magnesium Oxide [Magnesium] 500 mg PO DAILY 10/26/20 Metoprolol Succinate 100 mg PO DAILY 10/26/20 Pregabalin 75 mg PO BID 10/26/20 Flaxseed/Omega3,6,9/Fatty Acid [Flax Seed Oil 1,300 mg Softgel] 1,400 mg PO DAILY 10/21/22 Glipizide [Glipizide ER] 5 mg PO DAILY 10/21/22 Mecobalamin [B12 Active] 1,000 mcg PO DAILY 10/21/22 [place]-3/Dha/Epa/Fish Oil [Fish Oil 1,400 mg Softgel] 1 each PO BID 10/21/22 Tumeric/Ging/[place]/Oreg/Capryl [Candicidal Capsule] 1 each PO BID 10/21/22 Home Med 1 cap PO DAILY 10/28/22 Lacto19/Bifido/L.lactis/P.acid [Jarro-Dophilus Eps 5B Cell Cap] 1 each PO DAILY 10/28/22 Lysine 100 mg PO PRN 10/28/22 Metformin HCl [Metformin HCl ER] 750 mg PO BID 10/28/22 Vit No.179/Iron/Folic [ Tablet] 1 each PO DAILY 10/28/22 Zinc Gluconate [Zinc] 50 mg PO DAILY 10/28/22 Physician Discharge Instructions: Patient presented with rectal bleed after polypectomy. She underwent colonoscopy by Dr. Eason during this admission, noted to have a bleeding ulcer and underwent clipping successfully. Post-operatively, she had mild drop in her hemoglobin to mid 8s. She was given 1u PRBC, no further bright red bleeding, felt much better, and was deemed stable for discharge home. Follow up with Dr. Eason in ~2-3 weeks. Blood pressure was in the low to low-normal range. Blood pressure medication (irbesartan) was held. Resume metoprolol Recommended restarting blood pressure medication stepwise when blood pressure is back into the 140s systolic or above. Resume aspirin/plavix as previously instructed by Dr. Eason in regards to timing of colonoscopy. Followup: Jhonny Shaffer DO [Primary Care Provider] - 1-2 Weeks (Please call to schedule an appointment. ) Time spent managing pt's care (in minutes): 45
== END 2022-10-29 18:18 | disposition home or self-care (01) ==
LOC: ER 11:27 → 2ND 16:41
PROVIDERS: ADMIT Internal Medicine; ATTEND Hospitalist
PROC: 0DJD8ZZ Inspection of Lower Intestinal Tract, Via Natural or Artificial Opening Endoscopic (ICD-10-PCS; 2022-10-28)
PROC: 3E0H8GC Introduction of Other Therapeutic Substance into Lower GI, Via Natural or Artificial Opening Endoscopic (ICD-10-PCS; principal; 2022-10-28 14:45)
DX: K92.2 Gastrointestinal hemorrhage, unspecified (principal); K62.6 Ulcer of anus and rectum; K92.1 Melena; D62 Acute posthemorrhagic anemia; E78.5 Hyperlipidemia, unspecified; E11.22 Type 2 diabetes mellitus with diabetic chronic kidney disease; I12.9 Hypertensive chronic kidney disease with stage 1 through stage 4 chronic kidney disease, or unspecified chronic kidney disease; N18.2 Chronic kidney disease, stage 2 (mild); F90.9 Attention-deficit hyperactivity disorder, unspecified type; Z98.890 Other specified postprocedural states; Z86.010 Personal history of colon polyps; Z88.6 Allergy status to analgesic agent
CPT/HCPCS: 45378; 96361; 36430; 85025 ×2; 80048; 36415; 86900; 83735; 86850; 84100; 85610 ×2; 86901; 82947 ×5; 84443; 85018; 85014; 85027; 84439; 83690; 80053 ×2; 74177; 96374; 99285; 87811; Q9967; J2704; J0171; J1815 ×4; C9113 ×3; P9016; J7050; J7040 ×2; J7030; 81003; 81015; G0378